=== PATIENT | female | born 1950 | race Caucasian/White ===

== ENCOUNTER → 2017-11-20 10:44 | Outpatient (CLI) | payer OTHER, SELFPAY ==
--- NOTE | 2017-11-20 10:45 | DI.RAD.S_ITS ---
PROCEDURE: XR CERVICAL SPINE 2V OR 3V INDICATIONS: Neck pain TECHNIQUE: 3 view(s) of the cervical spine were acquired. COMPARISON: None. FINDINGS: Bones: No fractures or dislocations to the T1 level. The lateral masses of C1 appear intact on the odontoid view. No suspicious bony lesions. Grade 1 retrolisthesis C5-C6 where there is moderate to severe disc degeneration. Mild mid cervical spine facet joint arthropathy. Mild multilevel vertebral hypertrophy. Soft tissues: No prevertebral soft tissue swelling. IMPRESSION: 1. Grade 1 retrolisthesis C5-C6 where there is moderate to severe disc degeneration. 2. Mild multilevel uncovertebral hypertrophy and mid cervical spine facet joint arthropathy Dictated by: Ted Riggins A Interpreted: Cait Almeida MD on 11/20/2017 at 11:04 Approved by: Cait Almeida MD, PhD on 11/20/2017 at 14:36
== END ==
PROVIDERS: PCP Family Medicine; Visit Provider Registered Nurse
DX: M50.322 Other cervical disc degeneration at C5-C6 level (principal); M47.812 Spondylosis without myelopathy or radiculopathy, cervical region; M43.12 Spondylolisthesis, cervical region
CPT/HCPCS: 72040

== ENCOUNTER → 2019-01-18 12:10 | Outpatient (CLI) | payer OTHER, SELFPAY | PROVIDERS: PCP Family Medicine; Visit Provider Nurse Practitioner | DX: L90.0 Lichen sclerosus et atrophicus (principal); N94.819 Vulvodynia, unspecified; N95.2 Postmenopausal atrophic vaginitis | CPT/HCPCS: 87070; 87077; 87205 ==

== ENCOUNTER → 2019-03-16 10:19 | Outpatient (CLI) | payer MEDICARE, SELFPAY | PROVIDERS: PCP Family Medicine; Visit Provider Obstetrics & Gynecology | DX: L90.0 Lichen sclerosus et atrophicus (principal); N95.2 Postmenopausal atrophic vaginitis | CPT/HCPCS: 87070; 87205 ==

== ENCOUNTER → 2019-09-07 14:22 | Outpatient (CLI) | payer MEDICARE, SELFPAY ==
[2019-09-08 08:19] LABS: COVID19 Sendout Not Detected (Not Detect)
== END ==
PROVIDERS: PCP Family Medicine; Visit Provider Physician Assistant
DX: Z01.812 Encounter for preprocedural laboratory examination (principal)
CPT/HCPCS: 87635

== ENCOUNTER 2019-09-10 08:00 | Day surgery (SDC) | payer MEDICARE, SELFPAY ==
[2019-09-10] VITALS (8 sets, daily range): BP systolic 132–165; BP diastolic 79–91; PULSE 53–80; RESP 11–20; TEMP 36.3–36.4; O2SAT 96–98; BMI 30.2
--- NOTE | 2019-09-10 | PATH_ITS ---
[facility] Accession Number: [id number] . 01 Material submitted: . rectum - RECTAL POLYP AT 15CM . 02 Diagnosis: Rectum at 15 cm, Polyp: Hyperplastic polyp. [facility] 09/13/2019 1055 Local . 02 Electronically signed: . Rob Mendoza MD, PhD, Pathologist NPI- [id number] . 01 Gross description: . RECTAL POLYP AT 15CM: Received in formalin are 2 fragment(s) of garrett, soft tissue measuring 0.2 x 0.2 x 0.2 cm to 0.1 x 0.1 x 0.1 cm submitted entirely in 1 cassette(s) /QBJ 09/11/2019 0436 Local . 02 Pathologist provided ICD-10: K62.1 . 02 CPT . 189503 Performed at: 01 [facility] [address] [id number] MD Bigg Carbajal MD Phone: [phone] Performed at: 02 [facility] [address] [place], [place] [id number] MD Berta Barr MD Phone: [phone]
[2019-09-10] MEDS: SODIUM CHLORIDE 0.9% 1,000 ML 200 ML IV (08:44)
--- NOTE | 2019-09-10 09:23 | PM.PREOP ---
Pre-operative Note COVID-19 COVID-19 status: Negative Result date/Date tested (Pos, Neg/Pending): 09/07/19 Interval Note History & Physical reviewed/Exam performed by Physician: Yes Changes to H&P: No ASA Class (for procedural sedation): III
[2019-09-10] MEDS: LIDOCAINE JELLY 2% 5 ML 1 APPLIC TOP (09:48)
[2019-09-10] MEDS: fentaNYL 250 MCG/5 ML INJ IV (09:49)
[2019-09-10] MEDS: MIDAZOLAM 5 MG/5 ML VIAL IV (09:50)
--- NOTE | 2019-09-10 10:05 | PM.OP.ENDO ---
Operative Date/Time/Diagnoses Date of procedure: 09/10/19 Time of procedure: 10:05 Pre-op diagnosis: Personal history of colon polyps Post-op diagnosis: other (small rectal polyp at 15cm) Procedure & Clinicians Study performed: Colonoscopy, cold forceps removal of small polyp at 15cm Procedural sedation simultaneously performed by the endoscopist Same procedure as scheduled: Yes Indications: Personal history of colon polyps Surgeon: Heidy Moya Procedure Notes SCOAP/Timeout: Performed Procedure in detail: The patient was brought to the room and placed in left lateral decubitus position with all bony prominences padded. A time-out was performed and then the patient was given procedural sedation starting with 2 mg of Versed and [100] mcg of fentanyl. A total of 4 mg of Versed and 200 micro g of fentanyl were given for the entire procedure. Vitals were monitored throughout the procedure and remained stable. Once adequately sedated, the procedure was begun. A rectal exam was performed revealing [no abnormalities]. The colonoscope was then introduced to the rectum and advanced to the cecum in the usual fashion. []The cecum was identified by the appendiceal orifice, the mucosal tri-fold, and the ileocecal valve. The scope was then retracted while rotating side to side and examining each mucosal fold. Small polyp was found 15 cm from the anal verge, and removed with cold forceps. [] At the conclusion of the procedure retroflexion was performed and [small grade 1-2 internal hemorrhoids without stigmata of bleeding were seen]. The scope was then withdrawn from the rectum the procedure was concluded. The patient tolerated the procedure well and was transferred to the PACU in stable condition. Scope withdrawal time: 8 Sedation minutes: 18 Findings: polyp Specimen(s): other (Small polyp from the rectum) Complications: none Impression: Single small polyp Post-procedure Recommendations: Colonscopy in 5 years (Due to history of colon polyps and family history of colon cancer, and 1 polyp found today) Follow up: as needed Disposition: PACU
--- NOTE | 2019-09-10 10:23 | SUR.PHASEI ---
HR variation from 57, to 82, to 113. She reports one episode of afib years ago. Spontaneously dropped into the 50s and 60s. Assymptomatic. Sitting up, drinking water, denies dizziness, light headedness, pain.
--- NOTE | 2019-09-10 10:34 | SUR.PHASEI ---
Addendum entered by Christy Blank R.N. 09/10/19 10:40: Patient goes out of tachycardia before she has the opportunity to do a valsalva maneuver. Original Note: Spoke with Dr. Moya about variable heartrate from 47-122 with adequate BP and no symptoms. She stated that pt has medication that she uses at home (metoprolol) that she can take as directed by her doctor and okd metoprolol as long as she is asymptomatic. HR varies frequently (is regular at each pace); Pt is otherwise doing well.
== END 2019-09-10 11:04 | disposition home or self-care (01) ==
PROVIDERS: PCP Family Medicine; Referring Provider Surgery; Visit Provider Surgery
PROC: 0DJD8ZZ Inspection of Lower Intestinal Tract, Via Natural or Artificial Opening Endoscopic (ICD-10-PCS; CPT 45378; principal; 2019-09-10 09:15)
DX: Z12.11 Encounter for screening for malignant neoplasm of colon (principal); Z86.010 Personal history of colon polyps; Z80.0 Family history of malignant neoplasm of digestive organs; I48.91 Unspecified atrial fibrillation; I10 Essential (primary) hypertension; Z79.01 Long term (current) use of anticoagulants; K64.0 First degree hemorrhoids; K62.1 Rectal polyp
CPT/HCPCS: 45380; 99152; J2250; J3010

== ENCOUNTER → 2020-03-16 10:30 | Outpatient (CLI) | payer MEDICARE, SELFPAY ==
[2020-03-16 11:25] LABS: Add Manual Diff / Slide Review NO; Basophils Absolute Auto 0 /uL (0-100); Basophils Percent Auto 0.5 % (0-2); Eosinophils Absolute Auto 100 /uL (0-450); Eosinophils Percent Auto 1.7 % (2-4); Hematocrit 40.2 % (36-46); Hemoglobin 13.2 g/dL (12.0-16.0); Lymphocytes Absolute Auto 1800 /uL (1100-4500); Lymphocytes Percent Auto 28.4 % (25-40); Mean Corpuscular HGB Conc 32.9 % (30-36); Mean Corpuscular Hemoglobin 29.4 PG (26-34); Mean Corpuscular Volume 89.3 fL (80-100); Monocytes Absolute Auto 500 /uL (0-900); Neutrophils Absolute Auto 3800 /uL (1500-7000); Neutrophils Percent Auto 61.4 % (50-75); Platelet Count 244 X10^3/uL (150-400); Red Cell Distribution Width 14.1 % (11.6-14.8); White Blood Cell Count 6.3 X10^3/uL (4.5-11.0)
[2020-03-16 11:36] LABS: Alanine Aminotransferase 65 IU/L (<35); Albumin 4.2 g/dL (3.5-5.0); Albumin Globulin Ratio 1.2 (1.0-2.8); Alkaline Phosphatase 149 U/L (38-126); Aspartate Aminotransferase 52 IU/L (14-36); BUN Creatinine Ratio 19.2 (6-22); Bilirubin Total 0.6 mg/dL (0.2-1.3); Blood Urea Nitrogen 14 mg/dL (7-17); Calcium 8.9 mg/dL (8.4-10.2); Carbon Dioxide 27 mmol/L (22-32); Chloride 107 mmol/L (98-107); Cholesterol 206 mg/dL (140-199); Estimated Glomerular Filt Rate > 60.0 mL/min (>60); Globulin 3.5 g/dL (1.7-4.1); Glucose 96 mg/dL (80-110); HDL Cholesterol 69 mg/dL (40-60); HEMOLYSIS < 15 (0-50); LDL Cholesterol Calculated 127 mg/dL (<100); Potassium 4.1 mmol/L (3.4-5.1); Sodium 137 mmol/L (137-145); Total Protein 7.7 g/dL (6.3-8.2); Triglycerides 50 mg/dL (35-150)
== END ==
PROVIDERS: PCP Family Medicine; Referring Provider Family Medicine; Visit Provider Family Medicine
DX: I10 Essential (primary) hypertension (principal); I48.0 Paroxysmal atrial fibrillation; Z13.220 Encounter for screening for lipoid disorders
CPT/HCPCS: 36415; 80053; 80061; 85025

== ENCOUNTER → 2020-04-18 08:36 | Outpatient (CLI) | payer MEDICARE, SELFPAY ==
[2020-04-18 09:17] LABS: Alanine Aminotransferase 60 IU/L (<35); Albumin Globulin Ratio 1.1 (1.0-2.8); Alkaline Phosphatase 135 U/L (38-126); Aspartate Aminotransferase 49 IU/L (14-36); BUN Creatinine Ratio 16.9 (6-22); Bilirubin Total 0.9 mg/dL (0.2-1.3); Blood Urea Nitrogen 13 mg/dL (7-17); Carbon Dioxide 29 mmol/L (22-32); Chloride 105 mmol/L (98-107); Estimated Glomerular Filt Rate > 60.0 mL/min (>60); Globulin 3.7 g/dL (1.7-4.1); Glucose 97 mg/dL (80-110); HEMOLYSIS < 15 (0-50); Potassium 3.6 mmol/L (3.4-5.1); Sodium 135 mmol/L (137-145); Total Protein 7.7 g/dL (6.3-8.2)
== END ==
PROVIDERS: PCP Family Medicine; Referring Provider Family Medicine; Visit Provider Family Medicine
DX: R74.8 Abnormal levels of other serum enzymes (principal)
CPT/HCPCS: 36415; 80053

== ENCOUNTER → 2020-07-17 08:00 | Outpatient (CLI) | payer MEDICARE, SELFPAY ==
[2020-07-17 09:46] LABS: Alanine Aminotransferase 47 IU/L (<35); Albumin 3.9 g/dL (3.5-5.0); Albumin Globulin Ratio 1.2 (1.0-2.8); Alkaline Phosphatase 132 U/L (38-126); Aspartate Aminotransferase 47 IU/L (14-36); Bilirubin Total 0.5 mg/dL (0.2-1.3); Bilirubin Unconjugated 0.5 mg/dL (0.0-1.1); Cholesterol 176 mg/dL (140-199); Globulin 3.3 g/dL (1.7-4.1); HDL Cholesterol 65 mg/dL (40-60); HEMOLYSIS < 15 (0-50); LDL Cholesterol Calculated 104 mg/dL (<100); Total Protein 7.2 g/dL (6.3-8.2); Triglycerides 35 mg/dL (35-150)
== END ==
PROVIDERS: PCP Family Medicine; Referring Provider Family Medicine; Visit Provider Family Medicine
DX: E78.5 Hyperlipidemia, unspecified (principal); R74.8 Abnormal levels of other serum enzymes
CPT/HCPCS: 36415; 80061; 80076

== ENCOUNTER → 2020-08-08 14:36 | Outpatient (CLI) | payer MEDICARE, SELFPAY ==
--- NOTE | 2020-08-08 14:37 | DI.US.S_ITS ---
PROCEDURE: US ABDOMEN LIMITED INDICATIONS: ELEVATED LIVER ENZYMES TECHNIQUE: Real-time focused scanning was performed of the abdomen, with image documentation. COMPARISON: None. FINDINGS: Liver echotexture is normal, no intrahepatic biliary distention or mass is found. The gallbladder appears normal, free of stones or sludge and the gallbladder wall is only 1.1 mm in thickness. The common bile duct is normal in caliber at 5.2 mm. The pancreas visualized appears normal. IMPRESSION: Source of abnormal liver function tests is not identified. The current limited ultrasound shows no hepatic biliary disease and normal appearing pancreas. Dictated by: Kishor Khan M.D. on 08/08/2020 at 16:38 Approved by: Kishor Khan M.D. on 08/08/2020 at 16:40
== END ==
PROVIDERS: PCP Family Medicine; Referring Provider Family Medicine; Visit Provider Family Medicine
DX: R74.8 Abnormal levels of other serum enzymes (principal)
CPT/HCPCS: 76705

== ENCOUNTER 2020-09-25 14:26 | Emergency (ER) | payer MEDICARE, SELFPAY | END 2020-09-25 14:53 | disposition left against medical advice (07) | PROVIDERS: Emergency Provider Emergency Medicine; PCP Family Medicine ==

== ENCOUNTER → 2020-10-12 09:41 | Outpatient (CLI) | payer MEDICARE, SELFPAY ==
--- NOTE | 2020-11-02 08:56 | PM.CARDMON.1 ---
Travel Agency Manager Report Referral & Results Date Patient Seen: 10/12/20 Requesting provider: Niharika Nelson Indication: Atrial fibrillation Duration of monitoring (days): 7 Diary information: There were 3 patient triggered events. These 3 events were associated with atrial fibrillation and heart rates between 65 and 117 beats per minute Data: Minimum heart rate identified was 59 beats per minute at 02:34 on 10/14/2020 Maximum heart rate was 179 beats per minute at 20:03 on 10/13/2020 Less than 1% of identified beats were ventricular ectopic in origin which would classify them as rare Patient was continuously in atrial fibrillation for 100% of the monitoring period. Overall heart rate control with patient's chronic atrial fibrillation appears to be adequate with patient only rarely exceeding 100 beats per minute Impression: Atrial fibrillation, with what appears to be adequate rate control. Clinical correlation suggested
== END ==
PROVIDERS: PCP Family Medicine; Referring Provider Family Medicine; Visit Provider Family Medicine
DX: I48.0 Paroxysmal atrial fibrillation (principal); I10 Essential (primary) hypertension
CPT/HCPCS: 93242; 93244

== ENCOUNTER → 2020-11-15 13:08 | Outpatient (CLI) | payer MEDICARE, SELFPAY ==
[2020-11-15 13:54] LABS: Prothrombin Time 54.2 SECONDS (10.1-12.7)
[2020-11-15 13:56] LABS: INR 4.7 (0.9-1.3)
== END ==
PROVIDERS: PCP Family Medicine; Referring Provider Family Medicine; Visit Provider Family Medicine
DX: Z51.81 Encounter for therapeutic drug level monitoring (principal); Z79.01 Long term (current) use of anticoagulants
CPT/HCPCS: 36415; 85610

== ENCOUNTER → 2021-01-26 09:40 | Outpatient (CLI) | payer MEDICARE, SELFPAY ==
[2021-01-26 10:36] LABS: COVID19 -Nasal RAPID Negative (Negative)
== END ==
PROVIDERS: PCP Family Medicine; Visit Provider Nurse Practitioner Family
DX: Z20.822 Contact with and (suspected) exposure to COVID-19 (principal)
CPT/HCPCS: 87635

== ENCOUNTER → 2021-01-30 11:15 | Outpatient (CLI) | payer MEDICARE, SELFPAY | PROVIDERS: PCP Family Medicine; Visit Provider Nurse Practitioner Family | DX: Z20.822 Contact with and (suspected) exposure to COVID-19 (principal); J06.9 Acute upper respiratory infection, unspecified | CPT/HCPCS: 87502; 87635 ==

== ENCOUNTER 2021-11-15 07:46 | Emergency (ER) | payer MEDICARE, SELFPAY ==
[2021-11-15 07:50] VITALS: BP 171/123; PULSE 88; RESP 18; TEMP 37; O2SAT 98; BMI 28.3
--- NOTE | 2021-11-15 08:18 | DI.CT.S_ITS ---
PROCEDURE: CT CHEST WO CON INDICATIONS: Fall/right rib pain TECHNIQUE: Noncontrast 5 mm thick sections acquired from the pulmonary apices to the posterior costophrenic angles. 1 mm lung window, 5 mm thick coronal and sagittal and 7 mm axial MIP reformats were then acquired. For radiation dose reduction, the following was used: automated exposure control, adjustment of mA and/or kV according to patient size. COMPARISON: None. FINDINGS: Image quality: Excellent. Lungs and pleura: No acute air space opacities. No pleural effusions or pneumothorax. Central and peripheral airways are patent and normal in caliber. Mediastinum: Heart size is normal. The right thyroid lobe has a 2.1 x 1.6 centimeter hypodense nodule. No pericardial effusion. No mediastinal adenopathy by size criteria. The aorta has atherosclerosis with no aneurysmal dilatation. Esophagus is normal in caliber. No hiatal hernia. Bones and chest wall: No suspicious bony lesions. No vertebral body compression fractures. No axillary or supraclavicular adenopathy by size criteria. Abdomen: Limited visualization of the upper abdomen shows no acute abnormality. IMPRESSION: 1. No acute abnormality of the chest. 2. Right thyroid nodule. Recommend nonemergent thyroid ultrasound. Dictated by: Javi Momin M.D. on 11/15/2021 at 8:38 Approved by: Javi Momin M.D. on 11/15/2021 at 8:48
--- NOTE | 2021-11-15 08:18 | ED_ITS ---
HPI - Fall General Chief Complaint: Fall Stated Complaint: Fall Fri- on thinners- tastes blood/pink spit Time Seen by Provider: 11/15/21 08:11 Source: patient Mode of arrival: Ambulatory History of Present Illness HPI Narrative: Patient complains of right axillary right rib area rib pain/chest wall pain. Hurts with deep breath and movement. Patient tripped on a tree root this past Friday while walking on a trail. No loss of consciousness. She states she fell to the right side and had her arm tucked towards her chest wall, tried posting out her right hand. Has small bruising to the dorsal right wrist. Also complains of right shoulder pain with history of shoulder injury in the past. She states she has full active range of motion without any difficulty. On exam this is consistent. No gross deformities. She does not want any imaging of the right hand or wrist or shoulder. She does agree with chest CT. She is on blood thinner for chronic AFib. She is had a cough since the fall. Pinkish sputum was noted, however no dyspnea. No fever chills. Blood pressure noted. She just took her blood pressure medication prior to arrival. Related Data Home Medications Medication Instructions Recorded Confirmed sotalol 80 mg tablet 80 mg PO BID 10/26/20 01/30/21 apixaban 5 mg tablet (Eliquis) 5 mg PO BID 01/10/21 01/30/21 Previous Rx's Medication Instructions Recorded clobetasol 0.05 % topical ointment 1 applictn topical BID #60 grams 01/15/19 acyclovir 400 mg tablet 400 mg PO 5XD PRN outbreak #30 tabs 02/15/19 flecainide 50 mg tablet 50 mg PO Q DAY PRN PRN atrial 04/08/19 fibrillation #30 tabs warfarin 5 mg tablet See Rx Instructions PO QDAY #125 04/18/20 tabs amoxicillin 875 mg-potassium 1 tab PO BID #10 tabs 01/30/21 clavulanate 125 mg tablet losartan 100 mg tablet 100 mg PO QDAY #90 tabs 04/06/21 Allergies Allergy/AdvReac Type Severity Reaction Status Date / Time No Known Drug Allergies Allergy Verified 01/30/21 11:12 Review of Systems Review of Systems Narrative: GENERAL: Denies chills, fatigue, malaise, fever, sweats. HEENT: Denies sinus pain, ear pain, sore throat RESPIRATORY: Denies dyspnea, cough CARDIOVASCULAR: Denies chest pain, palpitations GASTROINTESTINAL: Denies nausea, vomiting, abdominal pain : Denies dysuria, frequency, hematuria MUSCULOSKELETAL: Positive for muscle or bony pain SKIN: Denies rash, skin lesions NEUROLOGIC: Denies weakness, numbness ROS Unobtainable: All systems reviewed & are unremarkable except as noted in HPI and below Patient History Medical History (Updated 11/15/21 @ 09:23 by Jonhny Bermudez MD) Atrial fibrillation (~2013) Chicken pox Chronic back pain (~2001) Fractures (~1999) Herpes (~2013) Hypertension (~2003) Lichen sclerosus Rosacea (~2012) Tinnitus Surgical History Anesthesia History of cardioversion (~08/2015) Surgical procedure planned Family History Father Hypertension Colon cancer Mother Age: 93 A-fib Heart disease Stroke Breast cancer Social History marital status: unknown household members: none occupational status: employed Smoking Status: Former smoker alcohol intake: current substance use type: does not use Smoking Status: Former smoker alcohol intake frequency: 0-2 drinks per day Substance Use Type: does not use Exam Narrative Exam Narrative: GENERAL: in no distress, not toxic not dyspneic HEAD: Normocephalic. EYES: Pupils equal round No scleral icterus. ENT: Mucous membranes moist. No blood in posterior pharynx NECK: Trachea midline. CARDIOVASCULAR: Regular rate and rhythm without murmurs RESPIRATORY: Clear to auscultation. Breath sounds equal bilaterally. No wheezes, rales, or rhonchi. Speaking full sentences. GASTROINTESTINAL: Abdomen soft, non-tender EXTREMITIES: No gross deformities. Examination right upper extremity there is bruising to the dorsum of the wrist/hand. 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 Full active range of motion of the shoulder elbow wrist with strong full supination pronation of the forearm, flexion-extension of the elbow, able to bring right hand above her head and bring across her chest. No drop off or gross deformity of the right shoulder. Examination of the chest wall, there is tenderness to the axillary ribs superiorly. No abrasion or bruising seen. No flail or crepitus. BACK: No flank tenderness. NEURO: AOx4. SKIN: Warm and dry PSYCH: Not anxious, is cooperative Initial Vital Signs Initial Vital Signs: Vital Signs Temperature 98.6 F 11/15/21 07:50 Pulse Rate 88 11/15/21 07:50 Respiratory Rate 18 11/15/21 07:50 Blood Pressure 171/123 H 11/15/21 07:50 Pulse Oximetry 98 11/15/21 07:50 Oxygen Delivery Method 11/15/21 07:50 Course Orders Ordered: ED Orders 11/15/21 08:18 CT chest wo con Stat Vital Signs Vital signs: Vital Signs - 8 hr 11/15/21 09:17 11/15/21 09:25 11/15/21 09:25 Pulse Rate 83 87 Respiratory Rate 22 Blood Pressure 149/81 H Pulse Oximetry 96 11/15/21 09:30 Pulse Rate 88 Respiratory Rate 22 Blood Pressure Pulse Oximetry 97 MDM - Fall Imaging Data CT scan - chest: Radiologist's Impression: [place] [address] CT Scan Report Signed Patient: Cora Yin MR#: [id number] : 1950 Acct:[id number] Age/Sex: 71 / F Date of Service: 11/15/21 Loc: Accession Number: [id number] ?? Procedure: CT chest wo con Ordering Provider: Johnny Bermudez MD PROCEDURE:? CT CHEST WO CON ? INDICATIONS:? Fall/right rib pain ? TECHNIQUE: Noncontrast 5 mm thick sections acquired from the pulmonary apices to the posterior costophrenic angles.? 1 mm lung window, 5 mm thick coronal and sagittal and 7 mm axial MIP reformats were then acquired.? For radiation dose reduction, the following was used:? automated exposure control, adjustment of mA and/or kV according to patient size.? ? COMPARISON:? None. ? FINDINGS: Image quality:? Excellent.? ? Lungs and pleura: No acute air space opacities. No pleural effusions or pneumothorax.? Central and peripheral airways are patent and normal in caliber.? ? Mediastinum:? Heart size is normal.? The right thyroid lobe has a 2.1 x 1.6 centimeter hypodense nodule.? No pericardial effusion.? No mediastinal adenopathy by size criteria.? The aorta has atherosclerosis with no aneurysmal dilatation.? Esophagus is normal in caliber.? No hiatal hernia. ? Bones and chest wall:? No suspicious bony lesions. No vertebral body compression fractures.? No axillary or supraclavicular adenopathy by size criteria.? ? Abdomen:? Limited visualization of the upper abdomen shows no acute abnormality.? ? IMPRESSION:? 1. No acute abnormality of the chest. 2. Right thyroid nodule.? Recommend nonemergent thyroid ultrasound.? ? ? Dictated by: Javi Momin M.D. on 11/15/2021 at 8:38 ? ? Approved by: Javi Momin M.D. on 11/15/2021 at 8:48 ? ECG Data Interpretation: Atrial fibrillation rate 85, no ST elevation or depression MDM Narrative Medical decision making narrative: Appropriate for discharge home. Exam and CT scan reassuring. Blood work indicated this time. Onset of injury 4 days ago. Taste of blood in her mouth nonspecific. Patient is on a blood thinner however at this time vital signs no hypotension or tachycardia. On imaging no hematoma or fluid collection that would indicate for blood draw. Return precautions reviewed with patient. Patient desires discharge home. At this time not requiring supplemental oxygen. Breathing with ease. Not requiring incentive spirometer. Discharge Plan Departure Patient Disposition: Home Clinical Impression: Contusion of rib on right side Instructions: DI for Rib Contusion, How to Prevent Falls Activity Restrictions/Additional Instructions: See family doctor in a week for recheck of your pain. May use Tylenol for pain. May continue home medications. Return if worse if any questions or concerns. It will take a few weeks for this pain to improve. Return if any trouble breathing or any coughing up blood or any questions or concerns. Prescriptions: No Action amoxicillin-pot clavulanate 875-125 mg tablet 1 tab PO BID Qty: 10 0RF Rx Instructions: take with food. Probiotics would be helpful clobetasol 0.05 % ointment 1 applictn TOP BID Qty: 60 2RF acyclovir 400 mg tablet 400 mg PO 5XD PRN (Reason: outbreak) Qty: 30 6RF flecainide 50 mg tablet 50 mg PO Q DAY PRN PRN (Reason: atrial fibrillation) Qty: 30 0RF warfarin 5 mg tablet See Rx Instructions PO QDAY Qty: 125 3RF Rx Instructions: Take 1.5 tabs (7.5mg) Tues, Thurs and Sat. Take 1 tab (5mg) other 4 days or as directed sotalol 80 mg tablet 80 mg PO BID Label Comments: Prescribed by Sales Center Associate, Dr. Cho Eliquis 5 mg tablet 5 mg PO BID losartan 100 mg tablet 100 mg PO QDAY Qty: 90 3RF Referrals: Niharika Nelson DO [Primary Care Provider] - Visit Report Forms: Patient Portal/API
[2021-11-15 09:17] VITALS: PULSE 83
[2021-11-15 09:25] VITALS: BP 149/81; PULSE 87; RESP 22; O2SAT 96
[2021-11-15 09:30] VITALS: PULSE 88; RESP 22; O2SAT 97
== END 2021-11-15 09:45 | disposition home or self-care (01) ==
PROVIDERS: Emergency Provider Emergency Medicine; PCP Family Medicine
DX: S20.211A Contusion of right front wall of thorax, initial encounter (principal); R07.89 Other chest pain; W18.09XA Striking against other object with subsequent fall, initial encounter
CPT/HCPCS: 71250; 93005; 93010; 99284

== ENCOUNTER → 2021-12-14 07:26 | Outpatient (CLI) | payer MEDICARE, SELFPAY ==
--- NOTE | 2021-12-14 07:27 | DI.US.S_ITS ---
PROCEDURE: US THYROID INDICATIONS: thyroid nodule, CT f/u TECHNIQUE: Real-time scanning was performed of the thyroid gland, with image documentation. COMPARISON: None. FINDINGS: Right: Thyroid lobe measures 6.1 x 2.0 x 2.0 cm, and is homogeneous in echotexture. Left: Thyroid lobe measures 5.0 x 1.2 x 1.3 cm, and is homogenous in echotexture. Isthmus: 2 mm thick. Nodule number: 1 Location: Right inferior Size: 3.0 x 2.3 x 2.0 cm. Composition: Solid Echogenicity: Hyperechoic Shape: wider than tall. Margins: Lobulated Echogenic foci: None Total points: 5 ACR TI-RADS category: 4 Nodule number: 2 Location: Left inferior Size: 0.5 x 0.5 x 0.6 cm. Composition: Solid Echogenicity: Hyperechoic Shape: wider than tall. Margins: Irregular Echogenic foci: Peripheral Total points: 7 ACR TI-RADS category: 5 IMPRESSION: There are 2 thyroid nodules, one on each side. Nodule 1 is moderately suspicious and larger than 1.5 cm. Recommend fine needle aspiration biopsy. Nodule 2 is highly suspicious but too small to biopsy at this time. Recommend continue ultrasound follow-up. ACR TI-RADS definitions and recommendations: TI-RADS 1 (benign): 0 points. FNA not needed. TI-RADS 2 (not suspicious): 2 points. FNA not needed. TI-RADS 3 (mildly suspicious): 3 points. * FNA if 2.5 cm or larger, follow up if 1.5 cm or larger (at 1, 3, and 5 years). TI-RADS 4 (moderately suspicious): 4-6 points. * FNA if 1.5 cm or larger, follow up if 1 cm or larger (at 1, 2, 3, and 5 years). TI-RADS 5 (highly suspicious): 7 points or more. * FNA if 1 cm or larger, follow up if 0.5 cm or larger (every year for 5 years). Dictated by: Rubin Jasso M.D. on 12/14/2021 at 13:45 Approved by: Rubin Jasso M.D. on 12/14/2021 at 13:51
== END ==
PROVIDERS: PCP Family Medicine; Referring Provider Physician Assistant; Visit Provider Physician Assistant
DX: E04.2 Nontoxic multinodular goiter (principal)
CPT/HCPCS: 76536

== ENCOUNTER → 2022-01-15 08:18 | Outpatient (CLI) | payer MEDICARE, SELFPAY ==
[2022-01-15 09:00] LABS: Add Manual Diff / Slide Review NO; Basophils Absolute Auto 0 /uL (0-100); Basophils Percent Auto 0.9 % (0-2); Eosinophils Absolute Auto 100 /uL (0-450); Eosinophils Percent Auto 2.4 % (2-4); Hematocrit 36.6 % (36-46); Hemoglobin 12.5 g/dL (12.0-16.0); Lymphocytes Absolute Auto 1200 /uL (1100-4500); Lymphocytes Percent Auto 30.7 % (25-40); Mean Corpuscular HGB Conc 34.1 % (30-36); Mean Corpuscular Hemoglobin 30.2 PG (26-34); Mean Corpuscular Volume 88.5 fL (80-100); Monocytes Absolute Auto 400 /uL (0-900); Neutrophils Absolute Auto 2200 /uL (1500-7000); Platelet Count 223 X10^3/uL (150-400); Red Blood Cell Count 4.14 X10^6/uL (4.0-5.2); Red Cell Distribution Width 13.5 % (11.6-14.8); White Blood Cell Count 3.9 X10^3/uL (4.5-11.0)
[2022-01-15 09:42] LABS: Alanine Aminotransferase 56 IU/L (<35); Albumin 3.8 g/dL (3.5-5.0); Albumin Globulin Ratio 1.2 (1.0-2.8); Alkaline Phosphatase 137 U/L (38-126); Aspartate Aminotransferase 42 IU/L (14-36); BUN Creatinine Ratio 20.5 (6-22); Bilirubin Total 0.7 mg/dL (0.2-1.3); Blood Urea Nitrogen 16 mg/dL (7-17); Calcium 8.7 mg/dL (8.4-10.2); Carbon Dioxide 27 mmol/L (22-32); Chloride 103 mmol/L (98-107); Cholesterol 175 mg/dL (140-199); Estimated Glomerular Filt Rate > 60 mL/min (>60); Globulin 3.2 g/dL (1.7-4.1); Glucose 95 mg/dL (80-110); HDL Cholesterol 70 mg/dL (40-60); HEMOLYSIS < 15 (0-50); LDL Cholesterol Calculated 98 mg/dL (<100); Sodium 135 mmol/L (137-145); Triglycerides 33 mg/dL (35-150)
[2022-01-15 10:06] LABS: Creatinine Urine Random 39.3 mg/dL
[2022-01-15 10:08] LABS: Microalbumin Urine Random < 0.6 mg/dL (0-1.6)
[2022-01-15 10:18] LABS: TSH w/ Reflex to FT4 2.15 uIU/mL (0.47-4.68)
== END ==
PROVIDERS: PCP Family Medicine; Referring Provider Physician Assistant; Visit Provider Physician Assistant
DX: E04.1 Nontoxic single thyroid nodule (principal); I10 Essential (primary) hypertension; Z13.220 Encounter for screening for lipoid disorders; Z13.6 Encounter for screening for cardiovascular disorders; I48.0 Paroxysmal atrial fibrillation
CPT/HCPCS: 36415; 80053; 80061; 82043; 82570; 84443; 85025

== ENCOUNTER → 2022-02-22 14:30 | Outpatient (CLI) | payer MEDICARE, SELFPAY ==
[2022-02-25 15:44] LABS: Hepatitis B Surface Antigen NEGATIVE s/c (NEGATIVE)
[2022-02-25 16:01] LABS: Hep C Virus Ab w/Reflex Quant NEGATIVE s/c (NEGATIVE)
== END ==
PROVIDERS: PCP Family Medicine; Referring Provider Family Medicine; Visit Provider Family Medicine
DX: R74.01 Elevation of levels of liver transaminase levels (principal)
CPT/HCPCS: 36415; 86803; 87340

== ENCOUNTER → 2022-03-19 13:42 | Outpatient (CLI) | payer MEDICARE, SELFPAY ==
--- NOTE | 2022-03-19 | PATH_ITS ---
Note [facility] Accession Number: [id number] TESTS RESULT FLAG UNITS REF RANGE LAB Clinician Provided Cytology Information No. of containers..01 Other (Miscellaneous) No. of containers..02 Previously Prepared Cytology Slide Source: RIGHT INFERIOR THYROID NODULE DIAGNOSIS: RIGHT INFERIOR THYROID NODULE INCONCLUSIVE. [place] CATEGORY III. ATYPIA OF UNDETERMINED SIGNIFICANCE. MOLECULAR STUDIES REQUESTED; RESULTS WILL BE REPORTED SEPARATELY. Pathologist ICD10: R89.6 Signed out by: Cora Silverio MD, Pathologist NPI- [id number] Performed by: Kumar Diaz, Package Sorter ([facility]) Gross description: 30 CC, RED, CLEAR RECIEVED: IN CYTOLYT WITH 6 ALCOHOL FIXED AND 6 QUICK STAINED SLIDES ALSO 1 RNA VIAL WAS RECEIVED. /VDU 03/20/2022 0729 Local FLAG LEGEND: L-Low Normal,H-High Normal,LL-Alert Low,HH-Alert High <-Panic Low,>-Panic High,A-Abnormal,AA-Critical Abnormal Performed at: 01 =Z [facility] [address], [place] [address] Bigg Carbajal MD, Performed at: 01 [facility] [address], [place], [place] [id number] MD Bigg Carbajal MD Phone: [phone]
--- NOTE | 2022-03-19 13:44 | DI.US.S_ITS ---
PROCEDURE: US FINE NEEDLE ASPIRATION INDICATIONS: RIGHT LOBE NODULE TECHNIQUE: The indications, alternatives, benefits, risks, and complications of the procedure were explained to the patient. Written informed consent was obtained and placed in the chart. The thyroid region was examined sonographically and a site was chosen for ultrasound guided percutaneous sampling. The skin was prepared and draped in the usual fashion, and anesthetized with 1% lidocaine infiltrated from the skin down to the thyroid gland. Multiple passes were then performed, with contents emptied into an appropriate pathology specimen container. A bandage was applied to the area of access at completion of the study. COMPARISON: [facility], US, US THYROID, 12/14/2021, 7:40. FINDINGS: Location(s) of lesion(s) sampled: Right inferior [place]: 25 gauge hypodermic needles. Number of passes: 6 Medications: 1% lidocaine for local anaesthesia. Complications: None. IMPRESSION: Successful ultrasound-guided thyroid nodule fine needle aspiration, with cytology results pending. Please see chart below for management recommendations based on cytology results. [facility] ReportingRecommendationsNon-diagnostic* Repeat US-guided FNA, with on-site cytology evaluation if possible. * Repeated non-diagnostic nodules without high suspicion US features: close observation vs surgical consult. * Consider surgery if nodule has high suspicion US features, grows >20% in 2 dimensions on followup, or patient has clinical risk factors for malignancy. Benign* If nodule has high suspicion US features: repeat US and FNA within 12 months. * If nodule has low to intermediate suspicion US features: repeat US at 12-24 months. If nodule grows (20% increase in at least 2 dimensions, with minimal increase of 2 mm or >50% change in volume), or development of new suspicious US features, then repeat FNA or continue followup. * If nodule has very low suspicion US features: followup US at >24 months. Atypia of undetermined significance, follicular lesion of undetermined significanceRepeat FNA, molecular testing, followup US, or surgical consult.Follicular neoplasm, suspicious for follicular neoplasmSurgical consult; also consider molecular testing. Suspicious for malignancySurgical consult.MalignantSurgical consult. Dictated by: Agustin Aguilera M.D. on 03/19/2022 at 17:37 Approved by: Agustin Aguilera M.D. on 03/19/2022 at 17:37
== END ==
PROVIDERS: PCP Family Medicine; Referring Provider Physician Assistant; Visit Provider Physician Assistant
DX: E04.1 Nontoxic single thyroid nodule (principal)
CPT/HCPCS: 10005

== ENCOUNTER → 2022-04-24 07:07 | Outpatient (CLI) | payer MEDICARE, SELFPAY ==
[2022-04-24 09:53] LABS: Alanine Aminotransferase 50 IU/L (<35); Albumin 3.8 g/dL (3.5-5.0); Albumin Globulin Ratio 1.2 (1.0-2.8); Alkaline Phosphatase 123 U/L (38-126); Aspartate Aminotransferase 40 IU/L (14-36); BUN Creatinine Ratio 24.7 (6-22); Bilirubin Total 0.6 mg/dL (0.2-1.3); Blood Urea Nitrogen 18 mg/dL (7-17); Calcium 8.7 mg/dL (8.4-10.2); Carbon Dioxide 22 mmol/L (22-32); Chloride 105 mmol/L (98-107); Estimated Glomerular Filt Rate > 60 mL/min (>60); Globulin 3.2 g/dL (1.7-4.1); Glucose 96 mg/dL (80-110); HEMOLYSIS < 15 (0-50); Potassium 4.1 mmol/L (3.4-5.1); Sodium 135 mmol/L (137-145)
== END ==
PROVIDERS: PCP Family Medicine; Referring Provider Family Medicine; Visit Provider Family Medicine
DX: R74.01 Elevation of levels of liver transaminase levels (principal)
CPT/HCPCS: 36415; 80053

== ENCOUNTER → 2022-10-30 09:17 | Outpatient (CLI) | payer MEDICARE, MEDICAID, SELFPAY ==
[2022-10-30 11:06] LABS: COVID-19 CEPHEID 4-PLEX PCR Negative (Negative); Influenza A - CEPHEID Flu A NEGATIVE (NEGATIVE); Influenza B - CEPHEID Flu B NEGATIVE (NEGATIVE); Respiratory Syncytial Virus Negative (Negative)
== END ==
PROVIDERS: PCP Family Medicine; Visit Provider Nurse Practitioner Family
DX: R05.9 Cough, unspecified (principal); Z20.822 Contact with and (suspected) exposure to COVID-19
CPT/HCPCS: 0241U

== ENCOUNTER → 2022-12-23 10:31 | Outpatient (CLI) | payer MEDICARE, MEDICAID, SELFPAY ==
[2022-12-23 11:04] LABS: Add Manual Diff / Slide Review NO; Basophils Absolute Auto 0 /uL (0-100); Basophils Percent Auto 0.8 % (0-2); Eosinophils Absolute Auto 100 /uL (0-450); Eosinophils Percent Auto 2.7 % (2-4); Hematocrit 36.9 % (36-46); Hemoglobin 12.4 g/dL (12.0-16.0); Lymphocytes Absolute Auto 1300 /uL (1100-4500); Mean Corpuscular HGB Conc 33.6 % (30-36); Mean Corpuscular Hemoglobin 30.2 PG (26-34); Mean Corpuscular Volume 89.9 fL (80-100); Monocytes Absolute Auto 400 /uL (0-900); Monocytes Percent Auto 7.5 % (3-14); Neutrophils Absolute Auto 3000 /uL (1500-7000); Platelet Count 222 X10^3/uL (150-400); Red Cell Distribution Width 13.8 % (11.6-14.8); White Blood Cell Count 4.8 X10^3/uL (4.5-11.0)
[2022-12-23 11:22] LABS: Alanine Aminotransferase 67 IU/L (<35); Albumin Globulin Ratio 1.2 (1.0-2.8); Alkaline Phosphatase 134 U/L (38-126); Aspartate Aminotransferase 52 IU/L (14-36); BUN Creatinine Ratio 22.7 (6-22); Bilirubin Total 1.1 mg/dL (0.2-1.3); Blood Urea Nitrogen 15 mg/dL (7-17); Calcium 9.1 mg/dL (8.4-10.2); Carbon Dioxide 25 mmol/L (22-32); Chloride 103 mmol/L (98-107); Cholesterol 177 mg/dL (140-199); Estimated Glomerular Filt Rate > 60 mL/min (>60); Globulin 3.4 g/dL (1.7-4.1); Glucose 95 mg/dL (80-110); HDL Cholesterol 73 mg/dL (40-60); HEMOLYSIS < 15 (0-50); LDL Cholesterol Calculated 95 mg/dL (<100); Potassium 4.2 mmol/L (3.4-5.1); Sodium 134 mmol/L (137-145); Total Protein 7.4 g/dL (6.3-8.2); Triglycerides 46 mg/dL (35-150)
[2022-12-23 11:52] LABS: TSH w/ Reflex to FT4 1.16 uIU/mL (0.47-4.68)
== END ==
PROVIDERS: PCP Family Medicine; Referring Provider Family Medicine; Visit Provider Family Medicine
DX: I48.20 Chronic atrial fibrillation, unspecified (principal); I10 Essential (primary) hypertension; E04.1 Nontoxic single thyroid nodule
CPT/HCPCS: 36415; 80053; 80061; 84443; 85025

== ENCOUNTER → 2023-01-03 07:43 | Outpatient (CLI) | payer MEDICARE, MEDICAID, SELFPAY ==
--- NOTE | 2023-01-03 07:44 | DI.MG.S_ITS ---
BILATERAL DIGITAL SCREENING MAMMOGRAM 3D/2D WITH CAD: 01/03/2023 CLINICAL: Routine screening. Family history of breast cancer. Comparison is made to exams dated: 12/14/2020 mammogram, 12/25/2018 mammogram - [facility], and 01/10/2011 mammogram - [facility]. There are scattered areas of fibroglandular density in both breasts (category b / 25%-50% glandular tissue). Current study was also evaluated with a Computer Aided Detection (CAD) system. No significant masses, calcifications, or other findings are seen in either breast. There has been no significant interval change. IMPRESSION: NEGATIVE There is no mammographic evidence of malignancy. A 1 year screening mammogram is recommended. Based on the Tyrer Cuzick model (a risk assessment model) the patient's lifetime risk is 8.2% and her 10 year risk is 6.1%. According to the ACR, ACS, and NCCN guidelines, an annual breast MRI exam along with mammogram is recommended if the patient's lifetime risk is 20% or greater. This exam was interpreted at Station ID: [id number]. NOTE: For mammograms, a report in lay terms will be sent to the patient. Approximately 15% of breast malignancies will not be visualized mammographically. In the management of a palpable breast mass, a negative mammogram must not discourage biopsy of a clinically suspicious lesion. Electronically Signed By: Sam blanco/bety:01/06/2023 14:58:18 letter sent: Normal Exam ACR BI-RADS Category 1: Negative [id number]
== END ==
PROVIDERS: PCP Family Medicine; Referring Provider Family Medicine; Visit Provider Family Medicine
DX: Z12.31 Encounter for screening mammogram for malignant neoplasm of breast (principal); Z80.3 Family history of malignant neoplasm of breast
CPT/HCPCS: 77063; 77067

== ENCOUNTER → 2023-02-03 06:43 | Outpatient (CLI) | payer MEDICARE, MEDICAID, SELFPAY ==
--- NOTE | 2023-02-03 06:44 | DI.US.S_ITS ---
PROCEDURE: US THYROID INDICATIONS: thyroid nodule re-check TECHNIQUE: Real-time scanning was performed of the thyroid gland, with image documentation. COMPARISON: [facility], US, US THYROID, 12/14/2021, 7:40. FINDINGS: Right: Thyroid lobe measures 6.1 x 1.5 x 1.9 cm, and is homogeneous in echotexture. Left: Thyroid lobe measures 4.8 x 1.3 x 0.9 cm, and is homogenous in echotexture. Isthmus: 2 mm thick. Nodule number: 1 Location: Right inferior Size: 3.1 x 2.1 x 1.6 cm, previously 3.0 x 2.0 x 2.3 cm. Composition: Solid Echogenicity: Isoechoic Shape: wider than tall. Margins: Smooth Echogenic foci: None Total points: 3 ACR TI-RADS category: Mildly suspicious Nodule number: 2 Location: Left inferior Size: Stable, 0.5 cm. Composition: Solid Echogenicity: Hypoechoic Shape: wider than tall. Margins: Smooth Echogenic foci: Peripheral calcification Total points: 6 ACR TI-RADS category: Moderately suspicious Nodule number: 3 Location: Left mid Size: 0.3 cm. Composition: Solid Echogenicity: Hypoechoic Shape: wider than tall. Margins: Smooth Echogenic foci: None Total points: 4 ACR TI-RADS category: Moderately suspicious IMPRESSION: Thyroid nodules as above. Recommend follow-up as below. ACR TI-RADS definitions and recommendations: TI-RADS 1 (benign): 0 points. FNA not needed. TI-RADS 2 (not suspicious): 2 points. FNA not needed. TI-RADS 3 (mildly suspicious): 3 points. * FNA if 2.5 cm or larger, follow up if 1.5 cm or larger (at 1, 3, and 5 years). TI-RADS 4 (moderately suspicious): 4-6 points. * FNA if 1.5 cm or larger, follow up if 1 cm or larger (at 1, 2, 3, and 5 years). TI-RADS 5 (highly suspicious): 7 points or more. * FNA if 1 cm or larger, follow up if 0.5 cm or larger (every year for 5 years). Dictated by: Mart Cohen M.D. on 02/03/2023 at 12:59 Approved by: Mart Cohen M.D. on 02/03/2023 at 13:05
== END ==
LOC: US 06:44
PROVIDERS: PCP Family Medicine; Referring Provider Family Medicine; Visit Provider Family Medicine
DX: E04.2 Nontoxic multinodular goiter (principal)
CPT/HCPCS: 76536

== ENCOUNTER → 2023-03-28 08:56 | Outpatient (CLI) | payer MEDICARE, MEDICAID, SELFPAY ==
[2023-03-28 10:18] LABS: Alanine Aminotransferase 114 IU/L (<35); Albumin Globulin Ratio 1.2 (1.0-2.8); Alkaline Phosphatase 121 U/L (38-126); Aspartate Aminotransferase 90 IU/L (14-36); BUN Creatinine Ratio 18.4 (6-22); Bilirubin Total 0.9 mg/dL (0.2-1.3); Blood Urea Nitrogen 14 mg/dL (7-17); Calcium 9.3 mg/dL (8.4-10.2); Carbon Dioxide 25 mmol/L (22-32); Chloride 102 mmol/L (98-107); Estimated Glomerular Filt Rate > 60 mL/min (>60); Globulin 3.3 g/dL (1.7-4.1); Glucose 90 mg/dL (80-110); HEMOLYSIS < 15 (0-50); Lipase 162 U/L (23-300); Potassium 4.2 mmol/L (3.4-5.1); Sodium 135 mmol/L (137-145); Total Protein 7.3 g/dL (6.3-8.2)
[2023-03-28 11:04] LABS: Hep C Virus Ab w/Reflex Quant NEGATIVE s/c (NEGATIVE)
[2023-03-30 04:20] LABS: Arsenic < 1 ug/L (0-9); Cadmium, Blood 1.2 ug/L (0.0-1.2); Lead, Blood < 1.0 ug/dL (0.0-3.4); Mercury, Blood 3.4 ug/L (0.0-14.9)
== END ==
LOC: LAB 08:57
PROVIDERS: PCP Family Medicine; Referring Provider Family Medicine; Visit Provider Family Medicine
DX: R79.89 Other specified abnormal findings of blood chemistry (principal)
CPT/HCPCS: 36415; 80053; 82175; 82300; 83655; 83690; 83825; 86803

== ENCOUNTER → 2023-03-31 09:04 | Outpatient (CLI) | payer MEDICARE, MEDICAID, SELFPAY ==
--- NOTE | 2023-03-31 09:06 | DI.US.S_ITS ---
PROCEDURE: US ABDOMEN LIMITED INDICATIONS: PERSISTENT AND INCREASING LIVER FUNCTION TESTS TECHNIQUE: Real-time scanning was performed of the abdominal and retroperitoneal organs, with image documentation. COMPARISON: [facility], US, US ABDOMEN LIMITED, 08/08/2020, 14:45. FINDINGS: Liver: Liver is normal in size and homogeneous in echotexture. Gallbladder: There is no gallstones. No gallbladder wall thickening or pericholecystic fluid. No sonographic Navarro's sign. Biliary ducts: Intrahepatic bile ducts are non-dilated. Extrahepatic bile duct caliber measures 3.9 mm. Normal is 6-7 mm or less in diameter, or 10 mm or less post-cholecystectomy. Pancreas: Visualized portions of the pancreas are sonographically normal. Miscellaneous: No free abdominal fluid. IMPRESSION: Unremarkable ultrasound examination of right upper quadrant abdomen. Dictated by: Marty Dillard M.D. on 03/31/2023 at 11:42 Approved by: Marty Dillard M.D. on 03/31/2023 at 11:47
== END ==
LOC: US 09:05
PROVIDERS: PCP Family Medicine; Referring Provider Family Medicine; Visit Provider Family Medicine
DX: R79.89 Other specified abnormal findings of blood chemistry (principal)
CPT/HCPCS: 76705

== ENCOUNTER → 2023-05-02 12:06 | Outpatient (CLI) | payer MEDICARE, MEDICAID, SELFPAY ==
[2023-05-02 13:15] LABS: Influenza A - CEPHEID Flu A NEGATIVE (NEGATIVE); Influenza B - CEPHEID Flu B NEGATIVE (NEGATIVE); Respiratory Syncytial Virus Negative (Negative)
[2023-05-02 13:46] LABS: COVID-19 CEPHEID 4-PLEX PCR Negative (Negative)
== END ==
PROVIDERS: PCP Family Medicine; Visit Provider Nurse Practitioner Family
DX: R05.9 Cough, unspecified (principal)
CPT/HCPCS: 0241U

== ENCOUNTER → 2023-08-01 11:41 | Outpatient (CLI) | payer MEDICARE, SELFPAY ==
[2023-08-01 12:23] LABS: Add Manual Diff / Slide Review NO; Basophils Absolute Auto 0 /uL (0-100); Basophils Percent Auto 0.8 % (0-2); Eosinophils Absolute Auto 100 /uL (0-450); Eosinophils Percent Auto 1.3 % (2-4); Hematocrit 35.4 % (36-46); Hemoglobin 12.1 g/dL (12.0-16.0); Lymphocytes Absolute Auto 1600 /uL (1100-4500); Lymphocytes Percent Auto 28.1 % (25-40); Mean Corpuscular HGB Conc 34.2 % (30-36); Mean Corpuscular Hemoglobin 30.6 PG (26-34); Mean Corpuscular Volume 89.5 fL (80-100); Monocytes Absolute Auto 400 /uL (0-900); Monocytes Percent Auto 7.5 % (3-14); Neutrophils Absolute Auto 3500 /uL (1500-7000); Neutrophils Percent Auto 62.3 % (50-75); Platelet Count 210 X10^3/uL (150-400); Red Blood Cell Count 3.96 X10^6/uL (4.0-5.2); Red Cell Distribution Width 13.9 % (11.6-14.8); White Blood Cell Count 5.6 X10^3/uL (4.5-11.0)
[2023-08-01 12:39] LABS: INR 1.3 (0.9-1.3); Prothrombin Time 14.9 SECONDS (9.4-12.5)
== END ==
PROVIDERS: PCP Family Medicine; Referring Provider Internal Medicine; Visit Provider Internal Medicine
DX: R79.89 Other specified abnormal findings of blood chemistry (principal)
CPT/HCPCS: 36415; 85025; 85610

== ENCOUNTER → 2023-08-15 07:31 | Outpatient (CLI) | payer MEDICARE, SELFPAY ==
[2023-08-15 12:50] LABS: Occult Blood 1 Negative (Negative); Occult Blood 2 Negative (Negative); Occult Blood 3 Negative (Negative)
== END ==
PROVIDERS: PCP Family Medicine; Referring Provider Nurse Practitioner Family; Visit Provider Nurse Practitioner Family
DX: R19.7 Diarrhea, unspecified (principal)
CPT/HCPCS: 82270

== ENCOUNTER → 2023-08-18 07:10 | Outpatient (CLI) | payer MEDICARE, SELFPAY ==
[2023-08-18 13:07] LABS: Clostridium Difficile Tox PCR Negative for C. diff (Negative)
== END ==
LOC: LAB 07:11
PROVIDERS: PCP Family Medicine; Referring Provider Nurse Practitioner Family; Visit Provider Nurse Practitioner Family
DX: R19.7 Diarrhea, unspecified (principal)
CPT/HCPCS: 87329; 87493

== ENCOUNTER → 2023-11-04 10:02 | Outpatient (CLI) | payer MEDICARE, SELFPAY ==
[2023-11-04 11:07] LABS: Add Manual Diff / Slide Review NO; Basophils Absolute Auto 0 /uL (0-100); Eosinophils Absolute Auto 100 /uL (0-450); Eosinophils Percent Auto 2.5 % (2-4); Hematocrit 36.4 % (36-46); Hemoglobin 12.2 g/dL (12.0-16.0); Lymphocytes Absolute Auto 1100 /uL (1100-4500); Lymphocytes Percent Auto 23.9 % (25-40); Mean Corpuscular HGB Conc 33.6 % (30-36); Mean Corpuscular Hemoglobin 30.8 PG (26-34); Mean Corpuscular Volume 91.6 fL (80-100); Monocytes Absolute Auto 300 /uL (0-900); Monocytes Percent Auto 7.2 % (3-14); Neutrophils Absolute Auto 3000 /uL (1500-7000); Neutrophils Percent Auto 65.4 % (50-75); Platelet Count 209 X10^3/uL (150-400); Red Blood Cell Count 3.98 X10^6/uL (4.0-5.2); Red Cell Distribution Width 13.9 % (11.6-14.8); White Blood Cell Count 4.6 X10^3/uL (4.5-11.0)
[2023-11-04 11:19] LABS: Alanine Aminotransferase 30 IU/L (<35); Albumin Globulin Ratio 1.2 (1.0-2.8); Alkaline Phosphatase 101 U/L (38-126); Aspartate Aminotransferase 31 IU/L (14-36); Bilirubin Total 0.7 mg/dL (0.2-1.3); Blood Urea Nitrogen 18 mg/dL (7-17); Calcium 9.2 mg/dL (8.4-10.2); Carbon Dioxide 27 mmol/L (22-32); Chloride 105 mmol/L (98-107); Estimated Glomerular Filt Rate > 60 mL/min (>60); Globulin 3.4 g/dL (1.7-4.1); Glucose 83 mg/dL (80-110); HEMOLYSIS < 15 (0-50); Potassium 3.9 mmol/L (3.4-5.1); Sodium 136 mmol/L (137-145); Total Protein 7.4 g/dL (6.3-8.2)
[2023-11-04 12:06] LABS: Vitamin D 25 Hydroxy (D3) 29.9 ng/mL (30.0-100.0)
[2023-11-09 14:36] LABS: Alpha-Tocopherol 10.3 mg/L (9.0-29.0); Gamma-Tocopherol 0.7 mg/L (0.5-4.9)
== END ==
PROVIDERS: PCP Family Medicine; Referring Provider Internal Medicine; Visit Provider Internal Medicine
DX: K74.3 Primary biliary cirrhosis (principal)
CPT/HCPCS: 36415; 80053; 82306; 84446; 84590; 85025

== ENCOUNTER → 2024-02-10 08:15 | Outpatient (CLI) | payer MEDICARE, SELFPAY ==
--- NOTE | 2024-02-10 08:16 | DI.US.S_ITS ---
PROCEDURE: US THYROID INDICATIONS: nodules TECHNIQUE: Real-time scanning was performed of the thyroid gland, with image documentation. COMPARISON: [facility], US, US THYROID, 02/03/2023, 7:20. FINDINGS: Thyroid: Right lobe measures 1.6 x 1.7 x 4 cm. Left lobe measures 1.5 x 1.2 x 3.7 cm. Isthmus is 0.3 cm thick. Echotexture is homogeneous. Nodule number: 1 Location: Right thyroid lobe Size: 2.8 cm. Composition: Solid Echogenicity: Isoechoic Shape: wider than tall. Margins: Ill-defined Echogenic foci: None Total points: 3 ACR TI-RADS category: TR 3, mildly suspicious and meeting size criteria for recommending fine-needle aspiration. Nodule number: 2 Location: Left inferior pole Size: 0.5 cm. Composition: Solid Echogenicity: Hypoechoic Shape: wider than tall. Margins: Irregular Echogenic foci: Rim calcification Total points: 8 ACR TI-RADS category: TR 5, highly suspicious and meeting size criteria for annual follow-up until 5 years. IMPRESSION: 1. Recommend fine needle aspiration of the 2.8 cm right thyroid TR 3 isoechoic nodule. 2. Recommend annual follow-up of the 0.5 cm left thyroid lobe rim calcified nodule up to 5 years. Dictated by: Bigg Barr M.D. on 02/10/2024 at 16:44 Approved by: Bigg Barr M.D. on 02/10/2024 at 16:51
== END ==
PROVIDERS: PCP Family Medicine; Referring Provider Family Medicine; Visit Provider Family Medicine
DX: E04.2 Nontoxic multinodular goiter (principal)
CPT/HCPCS: 76536

== ENCOUNTER → 2024-04-26 11:34 | Outpatient (CLI) | payer MEDICARE, SELFPAY ==
[2024-04-26 12:58] LABS: Add Manual Diff / Slide Review NO; Basophils Absolute Auto 0 /uL (0-100); Basophils Percent Auto 0.7 % (0-2); Eosinophils Absolute Auto 100 /uL (0-450); Eosinophils Percent Auto 2.8 % (2-4); Hematocrit 37.2 % (36-46); Hemoglobin 12.6 g/dL (12.0-16.0); Lymphocytes Absolute Auto 1400 /uL (1100-4500); Lymphocytes Percent Auto 26.4 % (25-40); Mean Corpuscular HGB Conc 33.9 % (30-36); Mean Corpuscular Hemoglobin 30.4 PG (26-34); Mean Corpuscular Volume 89.8 fL (80-100); Monocytes Absolute Auto 400 /uL (0-900); Monocytes Percent Auto 7.1 % (3-14); Neutrophils Absolute Auto 3300 /uL (1500-7000); Platelet Count 206 X10^3/uL (150-400); Red Blood Cell Count 4.14 X10^6/uL (4.0-5.2); Red Cell Distribution Width 13.5 % (11.6-14.8); White Blood Cell Count 5.3 X10^3/uL (4.5-11.0)
== END ==
PROVIDERS: PCP Family Medicine; Referring Provider Internal Medicine; Visit Provider Internal Medicine
DX: K74.3 Primary biliary cirrhosis (principal)
CPT/HCPCS: 36415; 85025

== ENCOUNTER → 2024-05-07 10:38 | Outpatient (CLI) | payer MEDICARE, SELFPAY ==
[2024-05-07 11:53] LABS: Alanine Aminotransferase 45 IU/L (<35); Albumin Globulin Ratio 1.4 (1.0-2.8); Alkaline Phosphatase 81 U/L (38-126); Aspartate Aminotransferase 42 IU/L (14-36); BUN Creatinine Ratio 21.3 (6-22); Bilirubin Total 0.7 mg/dL (0.2-1.3); Blood Urea Nitrogen 17 mg/dL (7-17); Calcium 9.3 mg/dL (8.4-10.2); Carbon Dioxide 24 mmol/L (22-32); Chloride 103 mmol/L (98-107); Estimated Glomerular Filt Rate > 60 mL/min (>60); Globulin 2.8 g/dL (1.7-4.1); Glucose 131 mg/dL (80-110); HEMOLYSIS < 15 (0-50); Potassium 4.2 mmol/L (3.4-5.1); Sodium 133 mmol/L (137-145); Total Protein 6.8 g/dL (6.3-8.2)
[2024-05-07 12:08] LABS: Vitamin D 25 Hydroxy (D3) 38.6 ng/mL (30.0-100.0)
== END ==
PROVIDERS: PCP Family Medicine; Referring Provider Internal Medicine; Visit Provider Internal Medicine
DX: K74.3 Primary biliary cirrhosis (principal)
CPT/HCPCS: 36415; 80053; 82306

== ENCOUNTER → 2024-05-15 09:18 | Outpatient (CLI) | payer MEDICARE, SELFPAY ==
[2024-05-15 11:04] LABS: Influenza A - CEPHEID Flu A POSITIVE (NEGATIVE); Influenza B - CEPHEID Flu B NEGATIVE (NEGATIVE); Respiratory Syncytial Virus Negative (Negative)
[2024-05-15 12:26] LABS: COVID-19 CEPHEID 4-PLEX PCR Negative (Negative)
== END ==
PROVIDERS: PCP Family Medicine; Visit Provider Physician Assistant Surgical
DX: R05.1 Acute cough (principal)
CPT/HCPCS: 0241U

== ENCOUNTER → 2024-05-15 09:29 | Outpatient (CLI) | payer MEDICARE, MEDICAID, SELFPAY ==
--- NOTE | 2024-05-15 09:30 | DI.RAD.S_ITS ---
PROCEDURE: XR CHEST 2V INDICATIONS: Cough, rib soreness TECHNIQUE: 2 views of the chest were acquired. COMPARISON: [facility], , CHEST 1 VIEW, 08/22/2015, 17:38. FINDINGS: Surgical changes and devices: None. Lungs and pleura: Lungs are clear. No pleural effusions or pneumothorax. Mediastinum: Mediastinal contours are normal. Heart size is normal. Bones and chest wall: No suspicious bony abnormalities. Soft tissues appear unremarkable. IMPRESSION: No acute cardiopulmonary abnormality is seen. Dictated by: Wali Rawls M.D. on 05/15/2024 at 9:53 Approved by: Wali Rawls M.D. on 05/15/2024 at 9:53
== END ==
PROVIDERS: PCP Family Medicine; Referring Provider Physician Assistant Surgical; Visit Provider Physician Assistant Surgical
DX: R05.1 Acute cough (principal)
CPT/HCPCS: 0241U; 71046

== ENCOUNTER 2024-06-14 11:04 | Emergency (ER) | payer MEDICARE, MEDICAID, SELFPAY ==
[2024-06-14 11:07] VITALS: BP 158/99; PULSE 90; RESP 22; TEMP 36.4; O2SAT 99; BMI 28.3
--- NOTE | 2024-06-14 12:21 | ED_ITS ---
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 Patient presents with complaint of ?I am in a manic episode?. States she has a history of bipolar was on Trileptal from the to 2012. She did quite well on this medication. She was seeking to restart it. She states that she saw mental health during that. And was found to be stable enough that they stopped her medication and she was able to stop following with them. She states normally it is fairly well controlled but has been worse lately. She states she feels manic. She denies any thoughts of harm to herself or others, she was states she was not having any concerns for homelessness, food or other instability. She was following regularly with her primary care doctor Javier as well as Gastroenterology Dr. Dick at [facility]. Patient denies any drug allergies. Discontinues tobacco, denies any alcohol, no recreational drugs. States he was to use marijuana but did not like how it made her feel. She describes a good social network. Related Data Home Medications Medication Instructions Recorded Confirmed ursodiol 500 mg tablet 500 mg PO BID 08/22/23 05/19/24 Previous Rx's Medication Instructions Recorded apixaban 5 mg tablet (Eliquis) 5 mg PO BID #180 tabs 03/26/24 celecoxib 200 mg capsule (Celebrex) 200 mg PO BID #180 caps 03/26/24 losartan 100 mg tablet See Rx Instructions .Route 03/26/24 .COMPLEX #90 tabs metoprolol succinate 25 mg 25 mg PO DAILY #90 tabs 03/26/24 tablet,extended release 24 hr acyclovir 400 mg tablet 400 mg PO 5XD PRN outbreak #30 tabs 03/30/24 clobetasol 0.05 % topical ointment 1 applic topical BID #60 grams 03/30/24 benzonatate 200 mg capsule 200 mg PO BID PRN cough #30 caps 05/15/24 promethazine 6.25 mg-codeine 10 5 ml PO Q6H PRN cough #118 mL 05/19/24 mg/5 mL syrup oxcarbazepine 300 mg tablet 300 mg PO BID 7 days #14 tabs 06/14/24 (Trileptal) Allergies Allergy/AdvReac Type Severity Reaction Status Date / Time No Known Drug Allergies Allergy Verified 05/19/24 10:48 Review of Systems Review of Systems ROS Unobtainable: All systems reviewed & are unremarkable except as noted in HPI and below Patient History Medical History Irritable bowel disease Elevated liver function tests Chronic lower back pain Transaminitis Chronic atrial fibrillation Lichen sclerosus Anticoagulated on Coumadin Fractures (~1999) Chronic back pain (~2001) Rosacea (~2012) Herpes (~2013) Chicken pox Tinnitus Hypertension (~2003) Atrial fibrillation (~2013) Surgical History Anesthesia Surgical procedure planned History of cardioversion (~08/2015) Family History Father Hypertension Colon cancer Mother Age: 96 A-fib Heart disease Stroke Breast cancer Social History marital status: unknown household members: none occupational status: employed alcohol intake: current substance use type: does not use Smoking Status: Current some day smoker alcohol intake frequency: 0-2 drinks per day Exam Narrative Exam Narrative: GENERAL: Alert and oriented x three, female in mild distress, patient is cooperative, pressured speech. HEENT: Head normocephalic, atraumatic, EOMI, pupils reactive, face symmetric, moist mucous membranes NECK: Supple, full range of motion CARDIOVASCULAR: Regular rate and rhythm without murmurs, rubs or gallops. RESPIRATORY: Breath sounds equal bilaterally, no wheezes rales or rhonchi. ABDOMEN: Soft, nontender. Normoactive bowel sounds all 4 quadrants. No guarding or rebound, rigidity, no mass : No CVA tenderness EXTREMITIES: Normal range of motion, no clubbing or edema. Neurovascularly intact NEUROLOGICAL: Cranial nerves II through XII grossly intact. Moving all extremities SKIN: Warm, dry, no petechiae, no rashes or lesions. PSYCH: No SI, no HI, patient denies any hallucinations, does have little bit of pressured speech. Slightly tangential thinking but it is able to hold a conversation. Does not appear to be responding to any internal stimuli. Initial Vital Signs Initial Vital Signs: Vital Signs Temperature 97.6 F 06/14/24 11:07 Pulse Rate 90 06/14/24 11:07 Respiratory Rate 22 06/14/24 11:07 Blood Pressure 158/99 H 06/14/24 11:07 Pulse Oximetry 99 06/14/24 11:07 Oxygen Delivery Method Room Air 06/14/24 11:07 Course Orders Ordered: ED Orders 06/14/24 11:27 Consult to [facility] - Supervisor Drying And Winding Stat 06/14/24 12:34 Urinalysis and Microscopic Stat Urine Drug Screen, Rapid Stat 06/14/24 12:45 Acetaminophen Stat Complete Blood Count AUTO DIFF Stat Comprehensive Metabolic Panel Stat Ethanol (ETOH) Stat Free T4, Direct Thyroxine Stat Salicylate Stat Thyroid Stimulating Hormone Stat Vital Signs Vital signs: Vital Signs - 8 hr 06/14/24 11:07 06/14/24 15:00 Temperature 97.6 F Pulse Rate 90 92 H Respiratory Rate 22 16 Blood Pressure 158/99 H 156/93 H Pulse Oximetry 99 97 Oxygen Delivery Method Room Air Room Air MDM - Psych Lab Data 06/14/24 12:45 06/14/24 12:45 Labs: Lab Results 06/14/24 06/14/24 06/14/24 Range/Units 12:34 12:34 12:45 WBC 6.7 (4.5-11.0) X10^3/uL RBC 4.37 (4.0-5.2) X10^6/uL Hgb 13.2 (12.0-16.0) g/dL Hct 39.6 (36-46) % MCV 90.6 (80-100) fL MCH 30.3 (26-34) PG MCHC 33.4 (30-36) % RDW 14.4 (11.6-14.8) % Plt Count 298 (150-400) X10^3/uL Neut % (Auto) 69.5 (50-75) % Lymph % (Auto) 21.6 L (25-40) % [place] % (Auto) 6.7 (3-14) % Eos % (Auto) 1.6 L (2-4) % Baso % (Auto) 0.6 (0-2) % Neut # (Auto) 4600 (6135-5793) /uL Lymph # (Auto) 1400 (0122-2017) /uL [place] # (Auto) 400 (0-900) /uL Eos # (Auto) 100 (0-450) /uL Baso # (Auto) 0 (0-100) /uL Sodium 137 (137-145) mmol/L Potassium 3.9 (3.4-5.1) mmol/L Chloride 102 (98-107) mmol/L Carbon Dioxide 28 (22-32) mmol/L BUN 15 (7-17) mg/dL Creatinine 0.90 (0.52-1.04) mg/dL Estimated GFR > 60 (>60) mL/min BUN/Creatinine Ratio 16.7 (6-22) Glucose 76 L (80-110) mg/dL Calcium 9.7 (8.4-10.2) mg/dL Total Bilirubin 0.6 (0.2-1.3) mg/dL AST 45 H (14-36) IU/L ALT 34 (<35) IU/L Alkaline Phosphatase 72 (38-126) U/L Total Protein 8.1 (6.3-8.2) g/dL Albumin 4.4 (3.5-5.0) g/dL Globulin 3.7 (1.7-4.1) g/dL Albumin/Globulin Ratio 1.2 (1.0-2.8) TSH 1.28 (0.47-4.68) uIU/mL Free T4 1.33 (0.78-2.19) ng/dL Urine Color Yellow Urine Appearance Clear Urine pH 5.5 Normal (4.5-8.0) Ur Specific [place] <=1.005 (1.000-1.035) Urine Protein Negative (Negative) Urine Glucose (UA) Negative (Negative) g/dL Urine Ketones Negative (NEGATIVE) Urine Occult Blood Negative (Negative) Urine Nitrate Negative (Negative) Urine Bilirubin Negative (NEGATIVE) Urine Urobilinogen 0.2 (0.2) E.U./dL Ur Leukocyte Esterase Negative (NEGATIVE) Urine RBC None seen (0-5/HPF) Urine WBC None seen (0-5/HPF) Ur Squamous Epith Cells None seen (0-5/HPF) Urine Bacteria None seen (None) Ur Culture Indicated? Cult not indicated Vol Urine Centrifuged 10ml (spun) Salicylates < 1.0 (<20) mg/dL U Opiates 300ng/mL cut Negative (Negative) Ur Oxycodone Screen Negative (Negative) Urine Methadone Screen Negative (Negative) Acetaminophen < 10 (10-30) ug/mL Ur Barbiturates Screen Negative (Negative) U Tricyclic Antidepress Negative (Negative) Ur Phencyclidine Scrn Negative (Negative) Ur Amphetamines Screen Negative (Negative) U Methamphetamines Scrn Negative (Negative) Ur MDMA Scrn (Ecstasy) Negative (Negative) U Benzodiazepines Scrn Negative (Negative) Urine Cocaine Screen Negative (Negative) U Marijuana (THC) Screen Negative (Negative) Urine Specific [place] Normal (Normal) Ethyl Alcohol < 10 ( - 10) mg/dL Ur Creatinine Normal (Normal) MDM Narrative Medical decision making narrative: Labs normal white count, hemoglobin and platelets, electrolytes are appropriate BUN creatinine normal glucose is 76, AST is 45 otherwise LFTs are negative, TSH is 1.28, free T4 is 1.33. Urine UA is negative for acute change, UDS is negative, Tylenol, salicylate and ETOH are negative. Patient met with social worker assistant she was seeking return to mental health and potentially restarting her old medication Trileptal. She states it was very helpful she was aware that it is an anticonvulsant but was on it for her bipolar disorder. She has no other high-risk factors currently she does not appear to be gravely disabled. Discharge Plan Departure Patient Disposition: Home Clinical Impression: Sharon Activity Restrictions/Additional Instructions: Please follow up with Dr. Herrera at your appointment, they can assist with referral to psychiatry. The [facility] team will also be reaching out to you. A short term prescription for your prior bipolar medication is included take 1 tablet twice daily. You will need to follow up to have this continued and adjusted or titrated. Prescription was sent to [facility] in [place]. If you're feeling suicidal or having suicidal thoughts, contact the suicide hotline (this number is also available for self referral for services at [facility]): . Please return for new or worsening symptoms if you have thoughts of harming yourself or others, if you feel your unsafe in any time we have any other new or concerning changes. Prescriptions: New oxcarbazepine [Trileptal] 300 mg tablet 300 mg PO BID 7 Days Qty: 14 0RF No Action benzonatate 200 mg capsule 200 mg PO BID PRN (Reason: cough) Qty: 30 0RF Eliquis 5 mg tablet 5 mg PO BID Qty: 180 3RF celecoxib [Celebrex] 200 mg capsule 200 mg PO BID Qty: 180 1RF losartan 100 mg tablet See Rx Instructions .ROUTE .COMPLEX Qty: 90 3RF Dose Instruction: TAKE 1 TABLET DAILY Rx Instructions: TAKE 1 TABLET DAILY metoprolol succinate 25 mg tablet extended release 24 hr 25 mg PO DAILY Qty: 90 3RF acyclovir 400 mg tablet 400 mg PO 5XD PRN (Reason: outbreak) Qty: 30 6RF clobetasol 0.05 % ointment 1 applic TOP BID Qty: 60 2RF promethazine-codeine 6.25-10 mg/5 mL syrup 5 ml PO Q6H PRN (Reason: cough) Qty: 118 0RF Rx Instructions: Cautioned, medication can cause sedation. Do not use for prolonged periods of time; use as needed for shortness effective treatment duration; taper dose by 50% every 2 days to discontinue if prolonged use. ursodiol 500 mg tablet 500 mg PO BID Referrals: Lucas Herrera DO [Primary Care Provider] - Stand Alone Forms: Patient Portal/API/Survey
[2024-06-14 12:51] LABS: Add Manual Diff / Slide Review NO; Basophils Absolute Auto 0 /uL (0-100); Basophils Percent Auto 0.6 % (0-2); Eosinophils Absolute Auto 100 /uL (0-450); Eosinophils Percent Auto 1.6 % (2-4); Hematocrit 39.6 % (36-46); Hemoglobin 13.2 g/dL (12.0-16.0); Lymphocytes Absolute Auto 1400 /uL (1100-4500); Lymphocytes Percent Auto 21.6 % (25-40); Mean Corpuscular HGB Conc 33.4 % (30-36); Mean Corpuscular Hemoglobin 30.3 PG (26-34); Mean Corpuscular Volume 90.6 fL (80-100); Monocytes Absolute Auto 400 /uL (0-900); Monocytes Percent Auto 6.7 % (3-14); Neutrophils Absolute Auto 4600 /uL (1500-7000); Neutrophils Percent Auto 69.5 % (50-75); Platelet Count 298 X10^3/uL (150-400); Red Blood Cell Count 4.37 X10^6/uL (4.0-5.2); Red Cell Distribution Width 14.4 % (11.6-14.8); White Blood Cell Count 6.7 X10^3/uL (4.5-11.0)
[2024-06-14 13:02] LABS: Appearance Urine UA CLEAR; Bilirubin Urine UA NEGATIVE (NEGATIVE); Color Urine UA YELLOW; Glucose Urine UA NEGATIVE (Negative); Ketones Urine UA NEGATIVE (NEGATIVE); Leukocyte Esterase Urine UA NEGATIVE (NEGATIVE); Nitrite Urine UA NEGATIVE (Negative); Occult Blood Urine UA NEGATIVE (Negative); Protein Urine UA NEGATIVE (Negative); Specific Gravity Urine UA <=1.005 (1.000-1.035); Urobilinogen Urine UA 0.2 E.U./dL (0.2)
[2024-06-14 13:03] LABS: Urine Volume 10mL (spun); pH Urine UA 5.5 (4.5-8.0)
[2024-06-14 13:04] LABS: Bacteria Urine None Seen; Culture Indicated Urine Cult Not Indicated; RBC Urine None Seen (0-5/HPF); Squamous Epithelial Cell Urine None Seen (0-5/HPF); WBC Urine None Seen (0-5/HPF)
[2024-06-14 13:05] LABS: Ur Creatinine Normal (Normal); Ur Specific Gravity Normal (Normal); Urine Amphetamines Negative (Negative); Urine Barbiturates Negative (Negative); Urine Benzodiazepines Negative (Negative); Urine Cocaine Negative (Negative); Urine MDMA Negative (Negative); Urine Methadone Negative (Negative); Urine Opiates Negative (Negative); Urine Oxycodone Negative (Negative); Urine Phencyclidine Negative (Negative); Urine THC Negative (Negative); Urine Tricyclic Antidepressant Negative (Negative); Urine pH Normal (Normal)
[2024-06-14 13:06] LABS: Acetaminophen < 10 ug/mL (10-30); Alanine Aminotransferase 34 IU/L (<35); Albumin 4.4 g/dL (3.5-5.0); Albumin Globulin Ratio 1.2 (1.0-2.8); Alkaline Phosphatase 72 U/L (38-126); Aspartate Aminotransferase 45 IU/L (14-36); BUN Creatinine Ratio 16.7 (6-22); Bilirubin Total 0.6 mg/dL (0.2-1.3); Blood Urea Nitrogen 15 mg/dL (7-17); Calcium 9.7 mg/dL (8.4-10.2); Carbon Dioxide 28 mmol/L (22-32); Chloride 102 mmol/L (98-107); Estimated Glomerular Filt Rate > 60 mL/min (>60); Ethanol (ETOH) < 10 mg/dL; Globulin 3.7 g/dL (1.7-4.1); Glucose 76 mg/dL (80-110); HEMOLYSIS < 15 (0-50); Potassium 3.9 mmol/L (3.4-5.1); Salicylate < 1.0 mg/dL (<20); Sodium 137 mmol/L (137-145); Total Protein 8.1 g/dL (6.3-8.2)
[2024-06-14 13:57] LABS: Free T4, Direct Thyroxine 1.33 ng/dL (0.78-2.19)
[2024-06-14 14:11] LABS: Thyroid Stimulating Hormone 1.28 uIU/mL (0.47-4.68)
--- NOTE | 2024-06-14 14:50 | CM.SWNOTE ---
ED RESIDENTIAL DIRECTOR Assessment Note: Pt is a 74yo female, resident of [place], is seen in the ED for a manic episode. Pt has a known hx of bipolar disorder with a previous rx for trileptal. Pt lives in a house with her son on the same property. Pt's Primary Care Provider is Dr. Lucas Herrera and insurance is [facility]. Reviewed chart and discussed with multidisciplinary team pt's medical status and initial discharge needs. RESIDENTIAL DIRECTOR entered room to meet with patient, introduced self and role. Pt endorses feeling safe with discharge home if she is able to have a bridge prescription until she sees her PCP. She is also requesting a MH referral through her PCP. RESIDENTIAL DIRECTOR calls bottle label inspector at [facility], it is reported pt does not have an open referral to MH at this time but can be discussed with PCP. ED RESIDENTIAL DIRECTOR coordinated an appointment with PCP on 06/15 at 11:30am. Provided follow up information to patient at discharge. RESIDENTIAL DIRECTOR sent referral to [facility] via [facility] Crisis Line and gave pt demographic information. Pt offered contact for [facility] team and pt declined. RESIDENTIAL DIRECTOR reviews this with ED provider Dr. Sol who indicates agreement and understanding; she will send trileptal rx until pt can get that continued with PCP. Plan: Pt to discharge home and will follow up with PCP on 06/15 at 11:30am. JIMMIE Preciado
[2024-06-14 15:00] VITALS: BP 156/93; PULSE 92; RESP 16; O2SAT 97
== END 2024-06-14 15:01 | disposition home or self-care (01) ==
PROVIDERS: Emergency Provider Emergency Medicine; PCP Family Medicine
DX: F30.9 Manic episode, unspecified (principal)
CPT/HCPCS: 80053; 80305; 80320; 80329; 81001; 84439; 84443; 85025; 99283; G0480

== ENCOUNTER 2024-07-11 09:07 | Emergency (ER) | payer MEDICARE, SELFPAY ==
--- NOTE | 2024-07-11 09:16 | EKG_ITS ---
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
--- NOTE | 2024-07-11 09:18 | PC.NURSE ---
Patient declined pain meds from provider, wishes to take normal home meds Tylenol and Celebrex first
[2024-07-11 09:21] VITALS: BP 178/98; PULSE 90; RESP 16; TEMP 36.3; O2SAT 99; BMI 27.4
--- NOTE | 2024-07-11 09:28 | DI.RAD.S_ITS ---
PROCEDURE: XR HIP W PEL IF DONE RT 2V INDICATIONS: fall, R pelvic pain, lumbar pain TECHNIQUE: AP pelvis with lateral view(s) of the right hip(s). COMPARISON: None. FINDINGS: Bones: Suspected fractures of the medial right pubic ring. Soft tissues: The visualized bowel gas pattern is normal. No suspicious soft tissue calcifications. IMPRESSION: Suspected fractures of the medial right pubic ring. Dictated by: Colin Vincent M.D. on 07/11/2024 at 10:24 Approved by: Colin Vincent M.D. on 07/11/2024 at 10:25
--- NOTE | 2024-07-11 09:28 | DI.CT.S_ITS ---
PROCEDURE: CT HEAD/BRAIN WO CON INDICATIONS: fall , hit head, pelvic pain/r suprapubic region, lspine TECHNIQUE: Noncontrast 4.5 mm thick angled axial sections acquired from the foramen magnum to the vertex, with coronal and sagittal reformats. For radiation dose reduction, the following was used: automated exposure control, adjustment of mA and/or kV according to patient size. COMPARISON: None. FINDINGS: Image quality: Diagnostic. CSF spaces: Basal cisterns are patent. No extra-axial fluid collections. The ventricles are symmetric in size and shape. Brain: No intracranial bleeds or mass effect. There is cerebral volume loss, with resultant ventricular and sulcal prominence. There are periventricular and deep white matter chronic small vessel ischemic changes. There is intracranial internal carotid artery atherosclerosis. Skull and face: Calvarium and visualized facial bones appear intact, without suspicious lesions. Anterior scalp contusion. Sinuses: Visualized sinuses and mastoids are clear. IMPRESSION: No acute intracranial pathology. Dictated by: Colin Vincent M.D. on 07/11/2024 at 10:31 Approved by: Colin Vincent M.D. on 07/11/2024 at 10:33
--- NOTE | 2024-07-11 09:28 | DI.CT.S_ITS ---
PROCEDURE: CT CERVICAL SPINE WO CON INDICATIONS: fall , hit head, pelvic pain/r suprapubic region, lspine TECHNIQUE: Noncontrast 3 mm thick sections acquired from the skull base to the T4 level. Sagittal and coronal reformats were then constructed. For radiation dose reduction, the following was used: automated exposure control, adjustment of mA and/or kV according to patient size. COMPARISON: None. FINDINGS: Image quality: Excellent. Bones: No fractures or dislocations. Visualized superior ribs are intact. Soft tissues: Prevertebral soft tissues are normal in thickness. No paravertebral hematomas. No apical pneumothoraces. 1.9 cm right thyroid nodule; this has been previously worked up. IMPRESSION: No displaced fracture or traumatic subluxation. Dictated by: Colin Vincent M.D. on 07/11/2024 at 10:33 Approved by: Colin Vincent M.D. on 07/11/2024 at 10:34
--- NOTE | 2024-07-11 09:28 | DI.RAD.S_ITS ---
PROCEDURE: XR LUMBAR SPINE 2-3V INDICATIONS: fall, R pelvic pain, lumbar pain TECHNIQUE: 3 views of the lumbar spine were acquired. COMPARISON: None. FINDINGS: Bones: 5 [id number] vertebrae are present. There is normal bony alignment. No vertebral body compression fractures. No suspicious bony lesions. Mild to moderate, multilevel degenerative disc disease and lower lumbar facet arthrosis. Soft tissues: Overlying bowel gas pattern is normal. No suspicious soft tissue calcifications. IMPRESSION: Mild to moderate, multilevel degenerative disc disease and lower lumbar facet arthrosis. Dictated by: Colin Vincent M.D. on 07/11/2024 at 10:25 Approved by: Colin Vincent M.D. on 07/11/2024 at 10:26
--- NOTE | 2024-07-11 09:31 | ED_ITS ---
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 Patient states that she was walking into her house had gone through the sliding door turned and fell backwards hitting her head on the sliding door and sliding down to the floor. Patient states she landed on her right hip and hand. States she was had some increase of low back pain which she has a baseline but also quite a bit of right groin pain. She states it is quite painful to move or ambulate, lifting her right leg increase his pain. Lifting her left leg increases the pain a little bit but does much more tolerable. She denies any loss of consciousness no headache, no dizziness. No chest pain or shortness of breath. No nausea or vomiting no issues with bowel movements or urination. No numbness tingling or weakness. She was not taken any [id number] pain medications today. She would like to take her home Tylenol. She denies any drug allergies. Patient denies any drug allergies. History of tobacco use, denies alcohol, no recreational drugs. Related Data Home Medications Medication Instructions Recorded Confirmed ursodiol 500 mg tablet 500 mg PO BID 08/22/23 06/24/24 Previous Rx's Medication Instructions Recorded celecoxib 200 mg capsule (Celebrex) 200 mg PO BID #180 caps 03/26/24 losartan 100 mg tablet See Rx Instructions .Route 03/26/24 .COMPLEX #90 tabs metoprolol succinate 25 mg 25 mg PO DAILY #90 tabs 03/26/24 tablet,extended release 24 hr acyclovir 400 mg tablet 400 mg PO 5XD PRN outbreak #30 tabs 03/30/24 clobetasol 0.05 % topical ointment 1 applic topical BID #60 grams 03/30/24 benzonatate 200 mg capsule 200 mg PO BID PRN cough #30 caps 05/15/24 promethazine 6.25 mg-codeine 10 5 ml PO Q6H PRN cough #118 mL 05/19/24 mg/5 mL syrup apixaban 5 mg tablet (Eliquis) 5 mg PO BID #20 tabs 07/05/24 oxcarbazepine 300 mg tablet 300 mg PO BID #60 tabs 07/05/24 (Trileptal) codeine sulfate 15 mg tablet 15 mg PO Q6H PRN pain #10 tabs 07/11/24 Allergies Allergy/AdvReac Type Severity Reaction Status Date / Time No Known Drug Allergies Allergy Verified 06/24/24 15:14 Review of Systems Review of Systems ROS Unobtainable: All systems reviewed & are unremarkable except as noted in HPI and below Patient History Medical History Rash Irritable bowel disease Elevated liver function tests Chronic lower back pain Transaminitis Chronic atrial fibrillation Lichen sclerosus Anticoagulated on Coumadin Fractures (~1999) Chronic back pain (~2001) Rosacea (~2012) Herpes (~2013) Chicken pox Tinnitus Hypertension (~2003) Atrial fibrillation (~2013) Surgical History Anesthesia Surgical procedure planned History of cardioversion (~08/2015) Family History Father Hypertension Colon cancer Mother Age: 96 A-fib Heart disease Stroke Breast cancer Social History marital status: unknown household members: none occupational status: employed alcohol intake: current substance use type: does not use alcohol intake frequency: 0-2 drinks per day Exam Narrative Exam Narrative: GEN: Patient appears in my distress. HEAD: No evidence of trauma, no raccoon/Seo sign. NECK: Nontender, painless range of motion, trachea midline [Negative/positive] Nexus criteria, no midline line tenderness, distracting injury, altered mental status, neuro deficit, recent EtOH. EYES: PERRLA, EOMI ENT: External inspection normal, trachea is midline, TM's are normal no hemotypanum, Nares are clear, no septal hematoma, no dental or oral injury, airway is normal and with normal occlusion, No bony tenderness RESP: Chest is nontender and has symmetric movement, no ecchymosis, breath sounds are normal no crackles, wheezes or rales CVS: Heart sounds are normal, no murmur noted, No JVD. ABG/GI: Nontender, soft, normal bowel sounds, no distention, no organomegaly, pelvic rock is negative, very mild pain in the right suprapubic region over the pubic symphysis. No bruising or skin changes. NEURO: Oriented AOx3, neuro is grossly intact, sensation and motor is normal all 4 extremities moving, cranial nerves II through XII are intact, GCS is 15 PSYCH: Normal mood and affect SKIN: Intact, warm and dry, no crepitus and without decubitus BACK: No CVA tenderness, no vertebral tenderness, no step-off's, no crepitus EXT: Atraumatic, hips are nontender, patient has increased pain with right leg raise, no pedal edema, normal color and temperature, normal range of motion of extremities with normal tendon exam, 2+ pulses in all four extremities Initial Vital Signs Initial Vital Signs: Vital Signs Temperature 97.4 F L 07/11/24 09:21 Pulse Rate 90 07/11/24 09:21 Respiratory Rate 16 07/11/24 09:21 Blood Pressure 178/98 H 07/11/24 09:21 Pulse Oximetry 99 07/11/24 09:21 Oxygen Delivery Method Room Air 07/11/24 09:21 Course Orders Ordered: ED Orders 07/11/24 09:16 EKG-12 Lead Routine 07/11/24 09:28 CT cervical spine wo con Stat CT head/brain wo con Stat XR hip w pel RT 2V Stat XR lumbar spine 2-3V Stat CBC Auto Diff [Complete Blood Count AUTO DIFF] Stat CMP [Comprehensive Metabolic Panel] Stat Lipase Stat Vital Signs Vital signs: Vital Signs - 8 hr 07/11/24 09:21 07/11/24 10:00 07/11/24 10:28 Temperature 97.4 F L Pulse Rate 90 83 80 Respiratory Rate 16 18 18 Blood Pressure 178/98 H 183/99 H Pulse Oximetry 99 98 98 Oxygen Delivery Method Room Air Room Air Room Air 07/11/24 10:30 07/11/24 10:30 07/11/24 11:00 Temperature Pulse Rate 80 Respiratory Rate 18 Blood Pressure 166/77 H 153/83 H Pulse Oximetry 98 Oxygen Delivery Method 07/11/24 11:00 07/11/24 11:30 07/11/24 11:30 Temperature Pulse Rate 81 74 Respiratory Rate Blood Pressure 162/85 H Pulse Oximetry 96 96 Oxygen Delivery Method Room Air MDM - Fall Lab Data 07/11/24 09:28 07/11/24 09:28 Labs: Lab Results 07/11/24 Range/Units 09:28 WBC 6.1 (4.5-11.0) X10^3/uL RBC 3.97 L (4.0-5.2) X10^6/uL Hgb 12.3 (12.0-16.0) g/dL Hct 35.9 L (36-46) % MCV 90.4 (80-100) fL MCH 31.0 (26-34) PG MCHC 34.3 (30-36) % RDW 14.8 (11.6-14.8) % Plt Count 256 (150-400) X10^3/uL Neut % (Auto) 78.1 H (50-75) % Lymph % (Auto) 14.1 L (25-40) % [place] % (Auto) 6.1 (3-14) % Eos % (Auto) 1.0 L (2-4) % Baso % (Auto) 0.7 (0-2) % Neut # (Auto) 4800 (0314-6436) /uL Lymph # (Auto) 900 L (5438-4377) /uL [place] # (Auto) 400 (0-900) /uL Eos # (Auto) 100 (0-450) /uL Baso # (Auto) 0 (0-100) /uL Sodium 127 L (137-145) mmol/L Potassium 4.0 (3.4-5.1) mmol/L Chloride 95 L (98-107) mmol/L Carbon Dioxide 24 (22-32) mmol/L BUN 12 (7-17) mg/dL Creatinine 0.50 L (0.52-1.04) mg/dL Estimated GFR > 60 (>60) mL/min BUN/Creatinine Ratio 24.0 H (6-22) Glucose 106 H (70-99) mg/dL Calcium 9.2 (8.4-10.2) mg/dL Total Bilirubin 0.9 (0.2-1.3) mg/dL AST 58 H (14-36) IU/L ALT 47 H (<35) IU/L Alkaline Phosphatase 79 (38-126) U/L Total Protein 7.4 (6.3-8.2) g/dL Albumin 4.3 (3.5-5.0) g/dL Globulin 3.1 (1.7-4.1) g/dL Albumin/Globulin Ratio 1.4 (1.0-2.8) Lipase 98 (23-300) U/L ECG Data Attestation: I personally reviewed and interpreted this ECG as follows: Interpretation: AFib rate of 69 QRS of 94. No acute ST changes appreciated. MDM Narrative Medical decision making narrative: 74-year-old female anticoagulants Eliquis who had a sounds like a mechanical ground level fall did hit her head is on Eliquis based on age head CT and cervical spine were obtained her main complaint is right groin pain she was able to ambulate but it is painful. She was nontender on exam particularly over the right hip but we will obtain pelvis with right hip x-ray and L-spine as patient has chronic low back pain but states it is mildly increased fairly. She defers anything stronger than Tylenol at this time. Head CT no acute intracranial pathology CT cervical no displaced fracture or traumatic subluxation. Right hip x-ray suspected fractures medial right pubic ring. Lumbar spine x-ray [id number] multilevel degenerative disc disease and lower lumbar facet arthrosis. Labs show white count of 6 hemoglobin of 12 platelets of 256. Sodium 127 chloride 95 creatinine 0.5 glucose of 106 AST is 58 ALT is 47. Spoke with orthopedic surgery, Dr. Mcneal. Patient is able to weightbear have her follow up outpatient in the next week. Can weightbear as tolerated with a walker. Discussed with the patient she feels comfortable returning home we will give a short course of codeine for pain management. She does not wish for any narcotic pain medication here. Plan for follow up with Orthopedic surgery discussed return precautions. Reviewed all findings with the patient today. She notes she was chronically hyponatremic. Patient is ambulating here in the department with walker. Discharge Plan Departure Patient Disposition: Home Clinical Impression: Closed pelvic ring fracture, Fall Activity Restrictions/Additional Instructions: You have a pelvic ring fracture or a fracture of the upper and lower pubic rami on the right. Follow up with Orthopedic surgery. Call Friday to set up an appointment. You may weightbear as tolerated with a walker. You can continue your home medications as prescribed. If needed a prescription for orally at narcotic has included. This medication can make you sleepy do not drive, perform hazardous activities or make any major decisions while taking it. This medication will make you constipated please take a stool softener once to twice daily until stools are soft and regular. Prescription sent to [facility] in [place] Please return for severe headaches,, new numbness weakness or difficulty with movement, inability to ambulate, new chest pain or shortness of breath, vomiting, loss of bowel or bladder control or other new or concerning changes. Prescriptions: New codeine sulfate 15 mg tablet 15 mg PO Q6H PRN (Reason: pain) Qty: 10 0RF No Action benzonatate 200 mg capsule 200 mg PO BID PRN (Reason: cough) Qty: 30 0RF celecoxib [Celebrex] 200 mg capsule 200 mg PO BID Qty: 180 1RF losartan 100 mg tablet See Rx Instructions .ROUTE .COMPLEX Qty: 90 3RF Dose Instruction: TAKE 1 TABLET DAILY Rx Instructions: TAKE 1 TABLET DAILY metoprolol succinate 25 mg tablet extended release 24 hr 25 mg PO DAILY Qty: 90 3RF acyclovir 400 mg tablet 400 mg PO 5XD PRN (Reason: outbreak) Qty: 30 6RF clobetasol 0.05 % ointment 1 applic TOP BID Qty: 60 2RF promethazine-codeine 6.25-10 mg/5 mL syrup 5 ml PO Q6H PRN (Reason: cough) Qty: 118 0RF Rx Instructions: Cautioned, medication can cause sedation. Do not use for prolonged periods of time; use as needed for shortness effective treatment duration; taper dose by 50% every 2 days to discontinue if prolonged use. Eliquis 5 mg tablet 5 mg PO BID Qty: 20 0RF oxcarbazepine [Trileptal] 300 mg tablet 300 mg PO BID Qty: 60 5RF ursodiol 500 mg tablet 500 mg PO BID Referrals: Lucas Herrera DO [Primary Care Provider] - Mickey Mcneal MD [Physician] - Stand Alone Forms: Patient Portal/API/Survey
[2024-07-11 09:36] LABS: Add Manual Diff / Slide Review NO; Basophils Absolute Auto 0 /uL (0-100); Basophils Percent Auto 0.7 % (0-2); Eosinophils Absolute Auto 100 /uL (0-450); Hematocrit 35.9 % (36-46); Hemoglobin 12.3 g/dL (12.0-16.0); Lymphocytes Absolute Auto 900 /uL (1100-4500); Lymphocytes Percent Auto 14.1 % (25-40); Mean Corpuscular HGB Conc 34.3 % (30-36); Mean Corpuscular Volume 90.4 fL (80-100); Monocytes Absolute Auto 400 /uL (0-900); Monocytes Percent Auto 6.1 % (3-14); Neutrophils Absolute Auto 4800 /uL (1500-7000); Neutrophils Percent Auto 78.1 % (50-75); Platelet Count 256 X10^3/uL (150-400); Red Blood Cell Count 3.97 X10^6/uL (4.0-5.2); Red Cell Distribution Width 14.8 % (11.6-14.8); White Blood Cell Count 6.1 X10^3/uL (4.5-11.0)
[2024-07-11 09:47] LABS: Alanine Aminotransferase 47 IU/L (<35); Albumin 4.3 g/dL (3.5-5.0); Albumin Globulin Ratio 1.4 (1.0-2.8); Alkaline Phosphatase 79 U/L (38-126); Aspartate Aminotransferase 58 IU/L (14-36); Bilirubin Total 0.9 mg/dL (0.2-1.3); Blood Urea Nitrogen 12 mg/dL (7-17); Calcium 9.2 mg/dL (8.4-10.2); Carbon Dioxide 24 mmol/L (22-32); Chloride 95 mmol/L (98-107); Estimated Glomerular Filt Rate > 60 mL/min (>60); Globulin 3.1 g/dL (1.7-4.1); Glucose 106 mg/dL (70-99); HEMOLYSIS < 15 (0-50); Lipase 98 U/L (23-300); Sodium 127 mmol/L (137-145); Total Protein 7.4 g/dL (6.3-8.2)
[2024-07-11 10:00] VITALS: BP 183/99; PULSE 83; RESP 18; O2SAT 98
[2024-07-11 10:28] VITALS: PULSE 80; RESP 18; O2SAT 98
[2024-07-11 10:30] VITALS: BP 166/77; PULSE 80; O2SAT 98
[2024-07-11 11:00] VITALS: BP 153/83; PULSE 81; RESP 18; O2SAT 96
[2024-07-11 11:30] VITALS: BP 162/85; PULSE 74; O2SAT 96
== END 2024-07-11 12:04 | disposition home or self-care (01) ==
PROVIDERS: Emergency Provider Emergency Medicine; PCP Family Medicine
DX: S32.810A Multiple fractures of pelvis with stable disruption of pelvic ring, initial encounter for closed fracture (principal); S09.90XA Unspecified injury of head, initial encounter; W17.89XA Other fall from one level to another, initial encounter; I48.91 Unspecified atrial fibrillation; Z79.01 Long term (current) use of anticoagulants
CPT/HCPCS: 36415; 70450; 72100; 72125; 73502; 80053; 83690; 85025; 93005; 99284; 99285

== ENCOUNTER 2024-07-27 23:31 | Inpatient (IN) | payer MEDICARE, SELFPAY ==
[2024-07-27 23:36] VITALS: BP 112/71; PULSE 66; O2SAT 94
[2024-07-27 23:38] VITALS: BP 112/71; PULSE 60; RESP 20; TEMP 36.6; O2SAT 95; BMI 27.8
--- NOTE | 2024-07-27 23:38 | DI.RAD.S_ITS ---
PROCEDURE: XR CHEST 1V INDICATIONS: Chest Pain TECHNIQUE: One view of the chest was acquired. COMPARISON: [facility], [place], XR CHEST 2V, 05/15/2024, 9:26. [facility], [facility], CHEST 1 VIEW, 08/22/2015, 17:38. FINDINGS AND IMPRESSION: Suspect right lower lung and left perihilar opacities which may be infectious/inflammatory. Low lung volumes. Possible trace effusions. Consider future imaging surveillance to assess for resolution. Cardiomegaly. Aortic calcifications. Degenerative osseous changes. Dictated by: Sam Escobar M.D. on 07/28/2024 at 0:02 Approved by: Sam Escobar M.D. on 07/28/2024 at 0:02
--- NOTE | 2024-07-27 23:45 | EKG_ITS ---
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
--- NOTE | 2024-07-27 23:58 | ED.GENADULT ---
HPI - General Adult General Chief complaint: Shortness of Breath/Dyspnea Stated complaint: shoulderpain Time Seen by Provider: 07/27/24 23:39 Source: patient and EMS Mode of arrival: EMS History of Present Illness HPI narrative: 74-year-old female with history of atrial fibrillation for which she takes Eliquis anticoagulation, felt short of breath with chest discomfort anterior and posterior since earlier today 4:00 p.m., occasionally smokes, not feeling feverish, denies any recent cough. Feel short of breath with minimal activity. Feels like she can not catch her breath. No treatments tried. Related Data Home Medications ?Medication ?Instructions ?Recorded ?Confirmed ursodiol 500 mg tablet 500 mg PO BID 08/22/23 06/24/24 Previous Rx's ?Medication ?Instructions ?Recorded celecoxib 200 mg capsule (Celebrex) 200 mg PO BID #180 caps 03/26/24 losartan 100 mg tablet See Rx Instructions .Route 03/26/24 .COMPLEX #90 tabs metoprolol succinate 25 mg 25 mg PO DAILY #90 tabs 03/26/24 tablet,extended release 24 hr acyclovir 400 mg tablet 400 mg PO 5XD PRN outbreak #30 tabs 03/30/24 clobetasol 0.05 % topical ointment 1 applic topical BID #60 grams 03/30/24 benzonatate 200 mg capsule 200 mg PO BID PRN cough #30 caps 05/15/24 promethazine 6.25 mg-codeine 10 5 ml PO Q6H PRN cough #118 mL 05/19/24 mg/5 mL syrup apixaban 5 mg tablet (Eliquis) 5 mg PO BID #20 tabs 07/05/24 oxcarbazepine 300 mg tablet 300 mg PO BID #60 tabs 07/05/24 (Trileptal) codeine sulfate 15 mg tablet 15 mg PO Q6H PRN pain #10 tabs 07/11/24 Allergies Allergy/AdvReac Type Severity Reaction Status Date / Time No Known Drug Allergies Allergy Verified 06/24/24 15:14 Patient History Medical History Rash Irritable bowel disease Elevated liver function tests Chronic lower back pain Transaminitis Chronic atrial fibrillation Lichen sclerosus Anticoagulated on Coumadin Fractures (~1999) Chronic back pain (~2001) Rosacea (~2012) Herpes (~2013) Chicken pox Tinnitus Hypertension (~2003) Atrial fibrillation (~2013) Surgical History Anesthesia Surgical procedure planned History of cardioversion (~08/2015) Family History Father Hypertension Colon cancer Mother Age: 96 A-fib Heart disease Stroke Breast cancer Social History marital status: unknown household members: none occupational status: employed Smoking Status: Current every day smoker alcohol intake: current substance use type: does not use Smoking Status: Current every day smoker alcohol intake frequency: 0-2 drinks per day Exam Narrative Exam Narrative: GENERAL: Well-developed patient, in mild distress. HEAD: Atraumatic. Normocephalic. EYES: Pupils equal round and reactive. Extraocular motions intact. No scleral icterus. No injection or drainage. ENT: Nose without bleeding, purulent drainage. Throat without erythema, tonsillar hypertrophy or exudate. Airway patent. NECK: Trachea midline. Non tender CARDIOVASCULAR: Regular rate and rhythm without murmurs, gallops, or rubs. RESPIRATORY: Bibasilar rhonchi, no retractions, speaks in just short of full sentences, seems to have shallow respiration pattern. GASTROINTESTINAL: Abdomen soft, non-tender, nondistended. EXTREMITIES: No edema or joint tenderness. BACK: Nontender without deformity or crepitance. No flank tenderness. NEURO: AOx3. Motor functions grossly nonfocal. SKIN: No rash or erythema of visible areas. Initial Vital Signs Initial Vital Signs: Vital Signs Pulse Rate 66 07/27/24 23:36 Blood Pressure 112/71 07/27/24 23:36 Pulse Oximetry 94 07/27/24 23:36 Course Orders Ordered: ED Orders 07/27/24 23:37 EKG-12 Lead Stat 07/27/24 23:38 XR chest 1V Stat Complete Blood Count AUTO DIFF Stat Comprehensive Metabolic Panel Stat Lipase Stat Magnesium Stat NT-proBNP (BNP-Adult 18+) Stat PTT Partial Thromboplastin Hai Stat Prothrombin Time INR Stat Troponin & CK Cardiac Panel Stat 07/28/24 00:02 Lactate (Lactic Acid) Stat Procalcitonin Stat 07/28/24 01:02 Covid-19 + FLU A/B + RSV - PCR Stat 07/28/24 01:44 Blood Culture Stat Discontinued Medications Albuterol (Albuterol 2.5 Mg/3 Ml Neb (Adult)) 2.5 mg INH NOW ONE Stop: 07/28/24 01:06 Last Admin: 07/28/24 01:23 Dose: 2.5 mg Documented By: SIMONE Aspirin (Aspirin 81 Mg Chew Tab) 324 mg PO NOW ONE Stop: 07/27/24 23:39 Doxycycline Hyclate (Doxycycline Hyclate 100 Mg Tablet) 100 mg PO NOW ONE Stop: 07/28/24 01:08 Last Admin: 07/28/24 02:04 Dose: 100 mg Ceftriaxone Sodium 1,000 mg/ (Sodium Chloride) 100 mls @ 200 mls/hr IV NOW ONE Stop: 07/28/24 01:07 Last Admin: 07/28/24 01:12 Dose: 200 mls/hr Documented By: RICARDO Morphine Sulfate (Morphine 4 Mg/Ml Inj) 4 mg IV NOW ONE Stop: 07/28/24 01:06 Last Admin: 07/28/24 01:12 Dose: 4 mg Documented By: RICARDO Ondansetron HCl (Ondansetron 4 Mg/2 Ml Inj) 4 mg IV NOW ONE Stop: 07/28/24 01:06 Last Admin: 07/28/24 01:11 Dose: 4 mg Documented By: RICARDO Vital Signs Vital signs: Vital Signs - 8 hr 07/27/24 23:36 07/27/24 23:36 07/27/24 23:38 Temperature 97.9 F Pulse Rate 66 60 Respiratory Rate 20 Blood Pressure 112/71 112/71 Pulse Oximetry 94 95 Oxygen Delivery Method Room Air Oxygen Flow Rate Fraction of Inspired Oxygen 07/28/24 00:00 07/28/24 00:00 07/28/24 00:30 Temperature Pulse Rate 61 61 Respiratory Rate 24 Blood Pressure 107/65 Pulse Oximetry 94 94 Oxygen Delivery Method Oxygen Flow Rate Fraction of Inspired Oxygen 07/28/24 00:30 07/28/24 01:00 07/28/24 01:00 Temperature Pulse Rate 62 Respiratory Rate 25 H Blood Pressure 116/73 110/65 Pulse Oximetry 93 Oxygen Delivery Method Oxygen Flow Rate Fraction of Inspired Oxygen 07/28/24 01:23 Temperature Pulse Rate 66 Respiratory Rate 26 H Blood Pressure Pulse Oximetry 93 Oxygen Delivery Method Room Air Oxygen Flow Rate 0 Fraction of Inspired Oxygen 21 Medical Decision Making Lab Data Lab results reviewed: Yes I reviewed the patient's lab results. Lab results narrative: White blood cell count 8800, hemoglobin 11.6, platelets adequate. Glucose 147. Normal renal function. Sodium 122 low. Potassium 3.9 normal. Serum CO2 22. Slight alkaline phosphatase elevation, other liver functions normal range. Lipase normal. Troponin negative/unmeasurable. Lactate not elevated. BNP 1620. 07/28/24 00:02 07/28/24 00:02 Labs: Lab Results 07/28/24 07/28/24 Range/Units 00:02 01:02 WBC 8.8 (4.5-11.0) X10^3/uL RBC 3.74 L (4.0-5.2) X10^6/uL Hgb 11.6 L (12.0-16.0) g/dL Hct 33.6 L (36-46) % MCV 89.9 (80-100) fL MCH 31.0 (26-34) PG MCHC 34.5 (30-36) % RDW 14.5 (11.6-14.8) % Plt Count 269 (150-400) X10^3/uL Neut % (Auto) 90.2 H (50-75) % Lymph % (Auto) 3.3 L (25-40) % [place] % (Auto) 3.9 (3-14) % Eos % (Auto) 0.1 L (2-4) % Baso % (Auto) 2.5 H (0-2) % Neut # (Auto) 8000 H (2747-5615) /uL Lymph # (Auto) 300 L (8774-4401) /uL [place] # (Auto) 300 (0-900) /uL Eos # (Auto) 0 (0-450) /uL Baso # (Auto) 200 H (0-100) /uL PT 14.4 H (9.4-12.5) SECONDS INR 1.3 (0.9-1.3) APTT 36 (25.1-36.5) SECONDS Sodium 122 L (137-145) mmol/L Potassium 3.9 (3.4-5.1) mmol/L Chloride 94 L (98-107) mmol/L Carbon Dioxide 22 (22-32) mmol/L BUN 13 (7-17) mg/dL Creatinine 0.54 (0.52-1.04) mg/dL Estimated GFR > 60 (>60) mL/min BUN/Creatinine Ratio 24.1 H (6-22) Glucose 147 H (70-99) mg/dL Lactate 0.9 (0.7-2.1) mmol/L Calcium 9.0 (8.4-10.2) mg/dL Magnesium 1.8 (1.6-2.3) mg/dL Total Bilirubin 0.8 (0.2-1.3) mg/dL AST 35 (14-36) IU/L ALT 28 (<35) IU/L Alkaline Phosphatase 142 H (38-126) U/L Total Creatine Kinase 133 (30-135) U/L Troponin I < 0.012 (0.01-0.034) ng/mL NT-Pro-B Natriuret Pep 1620 H (<125) pg/mL Total Protein 7.0 (6.3-8.2) g/dL Albumin 4.0 (3.5-5.0) g/dL Globulin 3.0 (1.7-4.1) g/dL Albumin/Globulin Ratio 1.3 (1.0-2.8) Lipase 33 (23-300) U/L SARS-CoV-2 (PCR) Negative (Negative) Influenza A (RT-PCR) Flu a negative (NEGATIVE) Influenza B (RT-PCR) Flu b negative (NEGATIVE) RSV (PCR) Negative (Negative) Imaging Data Chest x-ray: Radiologist's Impression: [address] [address] XRay Report Signed Patient: Cora Yin MR#: [id number] : 1950 Acct:[id number] Age/Sex: 74 / F Date of Service: 07/27/24 Loc: ED Accession Number: [id number] Procedure: XR chest 1V Ordering Provider: Codey Dorman MD PROCEDURE: XR CHEST 1V INDICATIONS: Chest Pain TECHNIQUE: One view of the chest was acquired. COMPARISON: [facility], XR CHEST 2V, 05/15/2024, 9:26. [facility], CHEST 1 VIEW, 08/22/2015, 17:38. FINDINGS AND IMPRESSION: Suspect right lower lung and left perihilar opacities which may be infectious/inflammatory. Low lung volumes. Possible trace effusions. Consider future imaging surveillance to assess for resolution. Cardiomegaly. Aortic calcifications. Degenerative osseous changes. Dictated by: Sam Escobar M.D. on 07/28/2024 at 0:02 Approved by: Sam Escobar M.D. on 07/28/2024 at 0:02 ECG Data Attestation: I personally reviewed and interpreted this ECG as follows: Interpretation: Atrial fibrillation with ventricular rate 61, no obvious ST segment elevation or depression changes. T-wave inversion lead 3 but upright in contiguous lead 2 and F other inferior leads. QRS 92, QTC 463. MDM Narrative Medical decision making narrative: 74-year-old female with shortness of breath since earlier today, anterior and posterior truncal discomfort. History of atrial fibrillation on apixaban. Afebrile, sirs screen negative. Crackles bibasilar, no retractions, however seems to breathe shallowly, in just short of full sentences. Lab studies: White blood cell count 8800, hemoglobin 11.6, platelets adequate. Glucose 147. Normal renal function. Sodium 122 low. Potassium 3.9 normal. Serum CO2 22. Slight alkaline phosphatase elevation, other liver functions normal range. Lipase normal. Troponin negative/unmeasurable. Lactate not elevated. BNP 1620. Chest x-ray shows right lower lobe and left perihilar infiltrates. See radiology report. COVID Flu RSV negative. Blood cultures, IV ceftriaxone, oral doxycycline. Morphine for chest pain with Zofran, SVN albuterol given. Still feels like she cannot catch her breath. Does not feel like she can go home. PCP Javier. We will contact hospitalist. [phone], case discussed with hospitalist Dr. Flannery who accepts patient for admission Discharge Plan Departure Patient Disposition: Admitted as Observation Clinical Impression: Pneumonia, Dyspnea Admit Date/Time: 07/28/24 02:30 Admit Provider: Elijah Flannery
[2024-07-28] VITALS (24 sets, daily range): BP systolic 87–116; BP diastolic 57–78; PULSE 61–77; RESP 16–29; TEMP 36.3–36.8; O2SAT 89–98; BMI 28.6
[2024-07-28 00:23] LABS: Add Manual Diff / Slide Review NO; Basophils Absolute Auto 200 /uL (0-100); Basophils Percent Auto 2.5 % (0-2); Eosinophils Absolute Auto 0 /uL (0-450); Eosinophils Percent Auto 0.1 % (2-4); Hematocrit 33.6 % (36-46); Hemoglobin 11.6 g/dL (12.0-16.0); Lymphocytes Absolute Auto 300 /uL (1100-4500); Lymphocytes Percent Auto 3.3 % (25-40); Mean Corpuscular HGB Conc 34.5 % (30-36); Mean Corpuscular Volume 89.9 fL (80-100); Monocytes Absolute Auto 300 /uL (0-900); Monocytes Percent Auto 3.9 % (3-14); Neutrophils Absolute Auto 8000 /uL (1500-7000); Neutrophils Percent Auto 90.2 % (50-75); Platelet Count 269 X10^3/uL (150-400); Red Blood Cell Count 3.74 X10^6/uL (4.0-5.2); Red Cell Distribution Width 14.5 % (11.6-14.8); White Blood Cell Count 8.8 X10^3/uL (4.5-11.0)
[2024-07-28 00:25] LABS: INR 1.3 (0.9-1.3); Prothrombin Time 14.4 SECONDS (9.4-12.5)
[2024-07-28 00:28] LABS: PTT Partial Thromboplastin Tim 36 SECONDS (25.1-36.5)
[2024-07-28 00:29] LABS: Alanine Aminotransferase 28 IU/L (<35); Albumin Globulin Ratio 1.3 (1.0-2.8); Alkaline Phosphatase 142 U/L (38-126); Aspartate Aminotransferase 35 IU/L (14-36); BUN Creatinine Ratio 24.1 (6-22); Bilirubin Total 0.8 mg/dL (0.2-1.3); Blood Urea Nitrogen 13 mg/dL (7-17); Carbon Dioxide 22 mmol/L (22-32); Chloride 94 mmol/L (98-107); Creatine Kinase 133 U/L (30-135); Estimated Glomerular Filt Rate > 60 mL/min (>60); Glucose 147 mg/dL (70-99); HEMOLYSIS < 15 (0-50); Lipase 33 U/L (23-300); Magnesium 1.8 mg/dL (1.6-2.3); Potassium 3.9 mmol/L (3.4-5.1); Sodium 122 mmol/L (137-145)
[2024-07-28 00:40] LABS: NT-proBNP (BNP-Adult 18+) 1620 pg/mL (<125); Troponin I < 0.012 ng/mL (0.01-0.034)
[2024-07-28] MEDS: ONDANSETRON 4 MG/2 ML INJ IV (01:11)
[2024-07-28] MEDS: cefTRIAXone 1,000 MG in SODIUM CHLORIDE 0.9% 100 ML 200 MG IV ×2 (01:12→20:25)
[2024-07-28] MEDS: MORPHINE 4 MG/ML INJ IV (01:12)
[2024-07-28] MEDS: ALBUTEROL 2.5 MG/3 ML NEB (ADULT) INH (01:23)
[2024-07-28 01:44] LABS: Influenza A - CEPHEID Flu A NEGATIVE (NEGATIVE); Influenza B - CEPHEID Flu B NEGATIVE (NEGATIVE); Respiratory Syncytial Virus Negative (Negative)
[2024-07-28 01:56] LABS: COVID-19 CEPHEID 4-PLEX PCR Negative (Negative)
[2024-07-28] MEDS: DOXYCYCLINE HYCLATE 100 MG TABLET PO ×2 (02:04→20:25)
[2024-07-28 02:25] LABS: Lactate (Lactic Acid) 0.9 mmol/L (0.7-2.1)
[2024-07-28 02:43] LABS: Procalcitonin 0.092 ng/mL (<0.5)
[2024-07-28] MEDS: BENZONATATE 100 MG CAPSULE PO (04:38)
[2024-07-28] MEDS: HYDROMORPHONE 0.5 MG INJ IV (04:38)
--- NOTE | 2024-07-28 06:26 | PC.NURSE ---
Admit Note-Patient brought to room 226 at 0340 via WC, weak , 1 person assist to bed. Neck and back pain, IV Dilaudid prn. Placed on 2L NC for SpO2 < 90%, shortness of breath with activity, crackles posterior. Bed alarm on.
--- NOTE | 2024-07-28 06:34 | PM.HP.1 ---
History of Present Illness History of Present Illness Date Patient Seen: 07/28/24 Time Patient Seen: 05:00 Date of Onset of Symptoms: 08/18/24 Chief complaint: shoulderpain Narrative: The pt is a 74 yo with a hx of a-fib on Eliuqis who presents to the ER with a hx of cough, Rt sided chest pain worse with coughing but there has been no sputum production. She denies any fevers, chills, diaphoresis, pain is not worse with activity, or position. [facility] Medical History Rash Irritable bowel disease Elevated liver function tests Chronic lower back pain Transaminitis Chronic atrial fibrillation Lichen sclerosus Anticoagulated on Coumadin Fractures (~1999) Chronic back pain (~2001) Rosacea (~2012) Herpes (~2013) Chicken pox Tinnitus Hypertension (~2003) Atrial fibrillation (~2013) Surgical History Anesthesia Surgical procedure planned History of cardioversion (~08/2015) Family History Father Hypertension Colon cancer Mother Age: 96 A-fib Heart disease Stroke Breast cancer Social History marital status: unknown household members: none occupational status: employed Smoking Status: Current every day smoker alcohol intake: current substance use type: does not use Meds Home Medications and Allergies Home Medications ?Medication ?Instructions ?Recorded ?Confirmed ?Type ursodiol 500 mg tablet 500 mg PO BID 08/22/23 06/24/24 History celecoxib 200 mg capsule (Celebrex) 200 mg PO BID #180 caps 03/26/24 06/24/24 Rx losartan 100 mg tablet See Rx Instructions .Route 03/26/24 06/24/24 Rx .COMPLEX #90 tabs metoprolol succinate 25 mg 25 mg PO DAILY #90 tabs 03/26/24 06/24/24 Rx tablet,extended release 24 hr acyclovir 400 mg tablet 400 mg PO 5XD PRN outbreak #30 tabs 03/30/24 06/24/24 Rx clobetasol 0.05 % topical ointment 1 applic topical BID #60 grams 03/30/24 06/24/24 Rx benzonatate 200 mg capsule 200 mg PO BID PRN cough #30 caps 05/15/24 06/24/24 Rx promethazine 6.25 mg-codeine 10 5 ml PO Q6H PRN cough #118 mL 05/19/24 06/24/24 Rx mg/5 mL syrup apixaban 5 mg tablet (Eliquis) 5 mg PO BID #20 tabs 07/05/24 Rx oxcarbazepine 300 mg tablet 300 mg PO BID #60 tabs 07/05/24 Rx (Trileptal) codeine sulfate 15 mg tablet 15 mg PO Q6H PRN pain #10 tabs 07/11/24 Rx Allergies Allergy/AdvReac Type Severity Reaction Status Date / Time No Known Drug Allergies Allergy Verified 06/24/24 15:14 Exam Vital Signs (past 8 hours): - 07/27/24 23:36 07/27/24 23:36 07/27/24 23:38 Temperature 97.9 F Pulse Rate 66 60 Respiratory Rate 20 Blood Pressure 112/71 112/71 Pulse Oximetry 94 95 Oxygen Delivery Method Room Air Oxygen Flow Rate Fraction of Inspired Oxygen 07/28/24 00:00 07/28/24 00:00 07/28/24 00:30 Temperature Pulse Rate 61 61 Respiratory Rate 24 Blood Pressure 107/65 Pulse Oximetry 94 94 Oxygen Delivery Method Oxygen Flow Rate Fraction of Inspired Oxygen 07/28/24 00:30 07/28/24 01:00 07/28/24 01:00 Temperature Pulse Rate 62 Respiratory Rate 25 H Blood Pressure 116/73 110/65 Pulse Oximetry 93 Oxygen Delivery Method Oxygen Flow Rate Fraction of Inspired Oxygen 07/28/24 01:23 07/28/24 01:30 07/28/24 01:30 Temperature Pulse Rate 66 65 Respiratory Rate 26 H 23 Blood Pressure 102/63 Pulse Oximetry 93 93 Oxygen Delivery Method Room Air Room Air Oxygen Flow Rate 0 Fraction of Inspired Oxygen 07/28/24 02:00 07/28/24 02:00 07/28/24 02:30 Temperature Pulse Rate 67 66 Respiratory Rate 20 19 Blood Pressure 106/67 Pulse Oximetry 92 92 Oxygen Delivery Method Room Air Room Air Oxygen Flow Rate Fraction of Inspired Oxygen 07/28/24 02:30 07/28/24 03:00 07/28/24 03:00 Temperature Pulse Rate 68 Respiratory Rate 18 Blood Pressure 107/68 95/60 Pulse Oximetry 93 Oxygen Delivery Method Room Air Oxygen Flow Rate Fraction of Inspired Oxygen 07/28/24 04:00 07/28/24 04:00 07/28/24 04:00 Temperature 97.8 F Pulse Rate 69 Respiratory Rate 29 H Blood Pressure 111/78 Pulse Oximetry 92 91 Oxygen Delivery Method Nasal Cannula Room Air Oxygen Flow Rate 0 Fraction of Inspired Oxygen 07/28/24 05:00 07/28/24 05:00 Temperature Pulse Rate Respiratory Rate Blood Pressure Pulse Oximetry 96 96 Oxygen Delivery Method Nasal Cannula Oxygen Flow Rate 2 1.5 Fraction of Inspired Oxygen Fraction of Inspired Oxygen 21 SaO2/FiO2 Ratio 438 Oxygen Delivery Method Nasal Cannula Oxygen Flow Rate 1.5 Const General: cooperative and healthy appearing Resp Auscultation: crackles Cardio Rate: regular rate Neuro General: patient alert, patient awake and patient oriented x3 Objective Labs 07/28/24 00:02 07/28/24 00:02 Labs: Laboratory Results - last 24 hr 07/28/24 07/28/24 00:02 01:02 WBC 8.8 RBC 3.74 L Hgb 11.6 L Hct 33.6 L MCV 89.9 MCH 31.0 MCHC 34.5 RDW 14.5 Plt Count 269 Neut % (Auto) 90.2 H Lymph % (Auto) 3.3 L Grainger % (Auto) 3.9 Eos % (Auto) 0.1 L Baso % (Auto) 2.5 H Neut # (Auto) 8000 H Lymph # (Auto) 300 L Grainger # (Auto) 300 Eos # (Auto) 0 Baso # (Auto) 200 H PT 14.4 H INR 1.3 APTT 36 Sodium 122 L Potassium 3.9 Chloride 94 L Carbon Dioxide 22 BUN 13 Creatinine 0.54 Estimated GFR > 60 BUN/Creatinine Ratio 24.1 H Glucose 147 H Lactate 0.9 Calcium 9.0 Magnesium 1.8 Total Bilirubin 0.8 AST 35 ALT 28 Alkaline Phosphatase 142 H Total Creatine Kinase 133 Troponin I < 0.012 NT-Pro-B Natriuret Pep 1620 H Total Protein 7.0 Albumin 4.0 Globulin 3.0 Albumin/Globulin Ratio 1.3 Lipase 33 Procalcitonin 0.092 SARS-CoV-2 (PCR) Negative Influenza A (RT-PCR) Flu a negative Influenza B (RT-PCR) Flu b negative RSV (PCR) Negative Assessment & Plan Assessment & Plan narrative: I have discussed the pt's presenting symptoms, labs and imaging with the ER provider and have agreed to admit the pt. 1. Pneumonia- the pt's labs sow a normal WBC but CXR shows a RLL, and mild infiltrates in RADHA. The pt was scheduled to go home but she felt too dypneic to be discharged so she will be admitted for continued breathing tx and IV abs. She will be continues on rocephin and oral doxycyclline, duo-nebs and albuterol prn. cough suppressants ordered, repeat labs in am. currently on RA 2. a-fib- continue with home metoprolol and Eliquis, rate controlled at this time. Time-Based Coding :: [TOTAL MINUTES] spent with patient and on the chart (including review of chart, obtaining history, exam, reviewing outside data, placing orders, documenting exam and treatment plan, and counseling patient) on [DATE]. Quality VTE Deep Vein Thrombosis/Pulmonary Embolism Present on Admission: No
[2024-07-28] MEDS: PANTOPRAZOLE DR 20 MG TABLET PO (06:45)
--- NOTE | 2024-07-28 07:26 | PM.HP.1 ---
History of Present Illness History of Present Illness Date Patient Seen: 07/28/24 Chief complaint: shoulder pain Narrative: Chief complaint: Increasing dyspnea shortness and breath cough productive of clear sputum with signs of bronchitis and pulmonary edema History of present illness: 74-year-old female with a history of chronic atrial fibrillation on Eliquis noted decreased strength and exercise endurance progressive over the past several days. She has doubled on her Celebrex to 200 mg twice a day for chronic pain in his also noted swelling in her feet. She came to the emergency room for evaluations. Finding the emergency department significant for bilateral lower lobe chest x-ray findings interpreted as infiltrate White count of 8.8 with 90% neutrophils which is increased from 6.7 and 70% neutrophils in May Sodium is 122 which is also increased from baseline of 137 in May Troponin is negative procalcitonin is negative pro BNP is 1600 For past medical history surgical history family history and social history see bottom of the note Review of systems: No syncope headache diplopia or blurred vision No nausea vomiting diarrhea No paresthesia paresis Physical exam: Very pleasant elderly female HEENT unremarkable Neck 3 cm JVD Heart irregularly irregular rhythm Lungs with diminished breath sounds and bibasilar rales Abdomen nondistended bowel sounds present nontender Extremities 1 to 2+ ankle edema EKG: Atrial fibrillation with controlled ventricular response chronic T-wave inversions in inferior and anterior leads which is unchanged from baseline For the remainder of the objective laboratory and imaging findings please see the bottom of the note Echocardiogram The patient was in atrial fibrillation with heart rates between 69-94 bpm during the exam. Previously sinus. The left ventricle is normal in size. Left ventricular ejection fraction is estimated to be 60 +/- 5%. The right ventricle is normal size. Right ventricular systolic function is borderline reduced. There is mild aortic regurgitation. Compared to the prior echo study, there has been no change in the severity of aortic regurgitation. There is mild tricuspid regurgitation. PASP about 26 mmHg Small pericardial effusion predominantly anterior to the free RV wall with some exudates. No obvious echocardiographic evidence of tamponade. New pericardial effusion. There is a small left-sided pleural effusion. New left pleural effusion. Assessment and plan: Acute diastolic congestive heart failure as evidenced by pleural effusions peripheral edema elevated BNP and x-ray findings consistent pulmonary edema than with bilateral pneumonia Lasix 20 mg IV q.12 Discontinue losartan due to hyponatremia and it is not indicated in diastolic heart failure Possibly secondary to NSAID effect on afferent arteriole with reduced free water balance Suspected community-acquired pneumonia with bronchitis Continue community-acquired pathway ceftriaxone and doxycycline Low-dose prednisolone and bronchodilators Chronic atrial fibrillation: Continue with home metoprolol and Eliquis, rate controlled at this time. DVT prophylaxis covered with anticoagulation Full code blue Time-Based Coding :: 55 minutes spent with patient and on the chart (including review of chart, obtaining history, exam, reviewing outside data, placing orders, documenting exam and treatment plan, and counseling patient) [facility] Medical History Rash Irritable bowel disease Elevated liver function tests Chronic lower back pain Transaminitis Chronic atrial fibrillation Lichen sclerosus Anticoagulated on Coumadin Fractures (~1999) Chronic back pain (~2001) Rosacea (~2012) Herpes (~2013) Chicken pox Tinnitus Hypertension (~2003) Atrial fibrillation (~2013) Surgical History Anesthesia Surgical procedure planned History of cardioversion (~08/2015) Family History Father Hypertension Colon cancer Mother Age: 96 A-fib Heart disease Stroke Breast cancer Social History marital status: unknown household members: none occupational status: employed Smoking Status: Current every day smoker alcohol intake: current substance use type: does not use Meds Home Medications and Allergies Home Medications ?Medication ?Instructions ?Recorded ?Confirmed ?Type ursodiol 500 mg tablet 500 mg PO BID 08/22/23 07/28/24 History celecoxib 200 mg capsule (Celebrex) 200 mg PO BID #180 caps 03/26/24 07/28/24 Rx losartan 100 mg tablet See Rx Instructions .Route 03/26/24 07/28/24 Rx .COMPLEX #90 tabs metoprolol succinate 25 mg 25 mg PO DAILY #90 tabs 03/26/24 07/28/24 Rx tablet,extended release 24 hr acyclovir 400 mg tablet 400 mg PO 5XD PRN outbreak #30 tabs 03/30/24 07/28/24 Rx clobetasol 0.05 % topical ointment 1 applic topical BID #60 grams 03/30/24 07/28/24 Rx apixaban 5 mg tablet (Eliquis) 5 mg PO BID #20 tabs 07/05/24 07/28/24 Rx oxcarbazepine 300 mg tablet 300 mg PO BID #60 tabs 07/05/24 07/28/24 Rx (Trileptal) Allergies Allergy/AdvReac Type Severity Reaction Status Date / Time No Known Drug Allergies Allergy Verified 06/24/24 15:14 Exam Vital Signs (past 8 hours): - 07/27/24 23:36 07/27/24 23:36 07/27/24 23:38 Temperature 97.9 F Pulse Rate 66 60 Respiratory Rate 20 Blood Pressure 112/71 112/71 Pulse Oximetry 94 95 Oxygen Delivery Method Room Air Oxygen Flow Rate Fraction of Inspired Oxygen 07/28/24 00:00 07/28/24 00:00 07/28/24 00:30 Temperature Pulse Rate 61 61 Respiratory Rate 24 Blood Pressure 107/65 Pulse Oximetry 94 94 Oxygen Delivery Method Oxygen Flow Rate Fraction of Inspired Oxygen 07/28/24 00:30 07/28/24 01:00 07/28/24 01:00 Temperature Pulse Rate 62 Respiratory Rate 25 H Blood Pressure 116/73 110/65 Pulse Oximetry 93 Oxygen Delivery Method Oxygen Flow Rate Fraction of Inspired Oxygen 07/28/24 01:23 07/28/24 01:30 07/28/24 01:30 Temperature Pulse Rate 66 65 Respiratory Rate 26 H 23 Blood Pressure 102/63 Pulse Oximetry 93 93 Oxygen Delivery Method Room Air Room Air Oxygen Flow Rate 0 Fraction of Inspired Oxygen 21 07/28/24 02:00 07/28/24 02:00 07/28/24 02:30 Temperature Pulse Rate 67 66 Respiratory Rate 20 19 Blood Pressure 106/67 Pulse Oximetry 92 92 Oxygen Delivery Method Room Air Room Air Oxygen Flow Rate Fraction of Inspired Oxygen 07/28/24 02:30 07/28/24 03:00 07/28/24 03:00 Temperature Pulse Rate 68 Respiratory Rate 18 Blood Pressure 107/68 95/60 Pulse Oximetry 93 Oxygen Delivery Method Room Air Oxygen Flow Rate Fraction of Inspired Oxygen 07/28/24 04:00 07/28/24 04:00 07/28/24 04:00 Temperature 97.8 F Pulse Rate 69 Respiratory Rate 29 H Blood Pressure 111/78 Pulse Oximetry 92 91 Oxygen Delivery Method Nasal Cannula Room Air Oxygen Flow Rate 0 Fraction of Inspired Oxygen 07/28/24 05:00 07/28/24 05:00 Temperature Pulse Rate Respiratory Rate Blood Pressure Pulse Oximetry 96 96 Oxygen Delivery Method Nasal Cannula Oxygen Flow Rate 2 1.5 Fraction of Inspired Oxygen Fraction of Inspired Oxygen 21 SaO2/FiO2 Ratio 438 Oxygen Delivery Method Nasal Cannula Oxygen Flow Rate 1.5 Objective Labs 07/28/24 00:02 07/28/24 00:02 Labs: Laboratory Results - last 24 hr 07/28/24 07/28/24 00:02 01:02 WBC 8.8 RBC 3.74 L Hgb 11.6 L Hct 33.6 L MCV 89.9 MCH 31.0 MCHC 34.5 RDW 14.5 Plt Count 269 Neut % (Auto) 90.2 H Lymph % (Auto) 3.3 L Cassia % (Auto) 3.9 Eos % (Auto) 0.1 L Baso % (Auto) 2.5 H Neut # (Auto) 8000 H Lymph # (Auto) 300 L Cassia # (Auto) 300 Eos # (Auto) 0 Baso # (Auto) 200 H PT 14.4 H INR 1.3 APTT 36 Sodium 122 L Potassium 3.9 Chloride 94 L Carbon Dioxide 22 BUN 13 Creatinine 0.54 Estimated GFR > 60 BUN/Creatinine Ratio 24.1 H Glucose 147 H Lactate 0.9 Calcium 9.0 Magnesium 1.8 Total Bilirubin 0.8 AST 35 ALT 28 Alkaline Phosphatase 142 H Total Creatine Kinase 133 Troponin I < 0.012 NT-Pro-B Natriuret Pep 1620 H Total Protein 7.0 Albumin 4.0 Globulin 3.0 Albumin/Globulin Ratio 1.3 Lipase 33 Procalcitonin 0.092 SARS-CoV-2 (PCR) Negative Influenza A (RT-PCR) Flu a negative Influenza B (RT-PCR) Flu b negative RSV (PCR) Negative Assessment & Plan Time-Based Coding :: [TOTAL MINUTES] spent with patient and on the chart (including review of chart, obtaining history, exam, reviewing outside data, placing orders, documenting exam and treatment plan, and counseling patient) on [DATE]. Quality VTE Deep Vein Thrombosis/Pulmonary Embolism Present on Admission: No
[2024-07-28] MEDS: ALBUTEROL/IPRATROPIUM 3 ML AMPUL INH ×3 (09:18→18:55)
[2024-07-28] MEDS: ACETAMINOPHEN 325 MG TABLET 650 MG PO ×2 (09:20→16:17)
[2024-07-28] MEDS: APIXABAN 5 MG TABLET PO ×2 (09:21→20:25)
[2024-07-28] MEDS: OXcarbazepine 150 MG TABLET 300 MG PO ×2 (09:22→20:25)
[2024-07-28] MEDS: SODIUM CHLORIDE 0.9% FLUSH 10 ML IV ×2 (09:24→20:26)
[2024-07-28] MEDS: polyethylene glycoL 3350 17 GM POWD.PACK PO (10:49)
[2024-07-28] MEDS: OXYCODONE 5 MG/5 ML ORAL SOLUTION PO ×2 (10:49→16:16)
--- NOTE | 2024-07-28 13:39 | DI.ECHO.S_ITS ---
[facility] : : [address] : : [place] : : [id number] : : Phone: [phone] Echocardiogram Report + + :Name: LAUREN ABDI Study Date: 07/28/2024 Height: 63 in : :[facility] ReadingLocation: Weight: 164 lb : : Gender: Female BSA: 1.8 m2 : :: 1950 Age: 74 yrs BP: 102/67 mmHg: :Reason For Study: CONGESTIVE HEART FAILURE : :Ordering Physician: HERSON, : :SUSAN Performed By: Cristina Hamilton : :Referring: SUSAN BAINS : + + Interpretation Summary The patient was in atrial fibrillation with heart rates between 69-94 bpm during the exam. Previously sinus. The left ventricle is normal in size. Left ventricular ejection fraction is estimated to be 60 +/- 5%. The right ventricle is normal size. Right ventricular systolic function is borderline reduced. There is mild aortic regurgitation. Compared to the prior echo study, there has been no change in the severity of aortic regurgitation. There is mild tricuspid regurgitation. PASP about 26 mmHg Small pericardial effusion predominantly anterior to the free RV wall with some exudates. No obvious echocardiographic evidence of tamponade. New pericardial effusion. There is a small left-sided pleural effusion. New left pleural effusion. Procedure: A two-dimensional transthoracic echocardiogram with color flow and Doppler was performed. The study quality was technically adequate. Comparison is made with the echocardiogram of 10/03/2015. The patient was in atrial fibrillation with heart rates between 69-94 bpm during the exam. Left Ventricle: The left ventricle is normal in size. Left ventricular wall thickness is mildly increased. There is no thrombus. Left ventricular ejection fraction is estimated to be 60 +/- 5%. There are no focal wall motion abnormalities. Diastolic function could not be accurately assessed due to atrial fibrillation. Right Ventricle: The right ventricle is normal size. Right ventricular systolic function is borderline reduced. Atria: The left atrium is severely dilated. There has been no significant change since the previous study. The right atrium is severely dilated. There is no Doppler evidence for an interatrial shunt. Mitral Valve: The mitral valve leaflets appear to open well. There is mild mitral annular calcification. There is mild mitral regurgitation. Aortic Valve: The aortic valve is trileaflet. The aortic valve is mildly calcified. There is no aortic valve stenosis. There is mild aortic regurgitation. Compared to the prior echo study, there has been no change in the severity of aortic regurgitation. Tricuspid Valve: The tricuspid valve leaflets are thin and pliable. There is mild tricuspid regurgitation. The right ventricular systolic pressure is estimated to be at least 26 mmHg based on an estimated right atrial pressure of 8 mm Hg. Pulmonic Valve: The pulmonic valve is not well seen, but is grossly normal. There is no pulmonic valvular regurgitation. Great Vessels: The aortic root is normal size. The ascending aorta is moderate-severely enlarged. The IVC is of normal diameter and collapses less than 50% with a sniff. This suggests a right atrial pressure of 8 mm Hg. Pericardium/ Pleura Small pericardial effusion predominantly anterior to the free RV wall with some exudates. No obvious echocardiographic evidence of tamponade. There is a small left-sided pleural effusion. MMode/2D Measurements & Calculations LVIDd: 4.9 cm LVOT diam: 2.2 cm LVIDs: 3.0 cm Ao root diam: 3.2 cm FS: 38.9 % asc Aorta Diam: 4.6 cm IVSd: 1.1 cm Ao Arch Diam (Prox Trans): 2.7 cm LVPWd: 0.99 cm LV thibodeaux. diameter/BSA (cm/m^2): 2.8 LV sys. diameter/BSA (cm/m^2): 1.7 LA A2 area: 35.0 cm2 RA long axis: 7.9 cm LA A4 area: 32.0 cm2 RA area: 30.8 cm2 LA length (vol): 7.3 cm RA vol: 101.5 ml LA vol: 130.4 ml RA : 57.1 ml/m2 LA vol index: 73.4 ml/m2 IVC diam: 2.0 cm RVD1 (basal): 3.5 cm RVD2 (mid): 2.6 cm Doppler Measurements & Calculations Ao V2 max: 160.1 cm/sec LVOT Max Xander: 135.8 cm/sec Ao V2 mean: 104.5 cm/sec LV V1 max P.4 mmHg Ao max P.3 mmHg LV V1 VTI: 21.3 cm Ao mean P.2 mmHg MINAL(I,D): 3.0 cm2 Ao V2 VTI: 26.9 cm MINAL(V,D): 3.2 cm2 sev ratio: 0.79 MINAL indexed to BSA (cm^2/m^2): 1.7 AI P1/2t: 846.1 msec AI dec slope: 138.7 cm/sec2 MV E max xander: 104.6 cm/sec TR max xander: 211.5 cm/sec MV A max xander: 0.46 cm/sec TR max P.9 mmHg MV E/A: 226.6 PA V2 max: 68.2 cm/sec Med Peak E' Xander: 8.8 cm/sec PA V2 mean: 42.6 cm/sec E/E' med: 11.9 PA mean P.83 mmHg Lat Peak E' Xander: 11.4 cm/sec PA pr(Accel): 49.0 mmHg E/E' lat: 9.2 E/e' average: 10.5 MV dec time: 0.19 sec SV(LVOT): 81.6 ml Reading Physician:05:04 PM
[2024-07-28] MEDS: carvediloL 3.125 MG TABLET PO ×2 (14:07→20:25)
[2024-07-28] MEDS: FUROSEMIDE 20 MG/2 ML VIAL IV ×2 (14:07→20:25)
--- NOTE | 2024-07-28 16:58 | PC.NURSE ---
PT reported pain most of shift from coughing and neck/shoulders. PRN oxy and tylenol utilized. Encouraged cough and removal of phlegm. On and off 2L NC with nebs. Morning metoprolol held for soft BPS. Miralax started for constipation. Echo completed. 1x dose of lasix with good output. Bt needing 1x assist for OOB to BSC. Family and bedside, Dr at bedside to update pt and family.
[2024-07-28] MEDS: SENNOSIDES 8.6 MG TABLET 17.2 MG PO (20:25)
[2024-07-29] VITALS (25 sets, daily range): BP systolic 109–143; BP diastolic 67–87; PULSE 69–95; RESP 18–39; TEMP 36.3–37.4; O2SAT 89–95
[2024-07-29 05:01] LABS: Add Manual Diff / Slide Review NO; Basophils Absolute Auto 0 /uL (0-100); Basophils Percent Auto 0.3 % (0-2); Eosinophils Absolute Auto 100 /uL (0-450); Eosinophils Percent Auto 0.9 % (2-4); Hematocrit 31.5 % (36-46); Hemoglobin 10.8 g/dL (12.0-16.0); Lymphocytes Absolute Auto 800 /uL (1100-4500); Lymphocytes Percent Auto 9.9 % (25-40); Mean Corpuscular HGB Conc 34.1 % (30-36); Mean Corpuscular Hemoglobin 30.6 PG (26-34); Mean Corpuscular Volume 89.8 fL (80-100); Monocytes Absolute Auto 800 /uL (0-900); Monocytes Percent Auto 10.3 % (3-14); Neutrophils Absolute Auto 6200 /uL (1500-7000); Neutrophils Percent Auto 78.6 % (50-75); Platelet Count 232 X10^3/uL (150-400); Red Blood Cell Count 3.51 X10^6/uL (4.0-5.2); Red Cell Distribution Width 14.7 % (11.6-14.8); White Blood Cell Count 7.9 X10^3/uL (4.5-11.0)
[2024-07-29 05:18] LABS: BUN Creatinine Ratio 26.5 (6-22); Blood Urea Nitrogen 18 mg/dL (7-17); Calcium 8.5 mg/dL (8.4-10.2); Carbon Dioxide 23 mmol/L (22-32); Chloride 92 mmol/L (98-107); Estimated Glomerular Filt Rate > 60 mL/min (>60); Glucose 104 mg/dL (70-99); HEMOLYSIS < 15 (0-50); Potassium 4.2 mmol/L (3.4-5.1); Sodium 120 mmol/L (137-145)
[2024-07-29] MEDS: ALBUTEROL/IPRATROPIUM 3 ML AMPUL INH ×2 (05:23→18:15)
[2024-07-29] MEDS: PANTOPRAZOLE DR 20 MG TABLET PO (05:54)
--- NOTE | 2024-07-29 07:46 | P.PN_ITS ---
Subjective Subjective Interval history: Chief complaint: Increasing dyspnea shortness and breath cough productive of clear sputum with signs of bronchitis and pulmonary edema History of present illness: 74-year-old female with a history of chronic atrial fibrillation on Eliquis noted decreased strength and exercise endurance progressive over the past several days. She has doubled on her Celebrex to 200 mg twice a day for chronic pain in his also noted swelling in her feet. She came to the emergency room for evaluations. Finding the emergency department significant for bilateral lower lobe chest x- ray findings interpreted as infiltrate White count of 8.8 with 90% neutrophils which is increased from 6.7 and 70% neutrophils in May Sodium is 122 which is also decreased from baseline of 137 in May Troponin is negative procalcitonin is negative pro BNP is 1600 S: She was still feeling weak and is constipated. Her breathing has improved. No fevers overnight. Her 2 sons are with her in the room. All questions were answered. Sodium is 120. Exam Vital Signs (past 8 hours): - 07/29/24 00:00 07/29/24 01:00 07/29/24 05:00 Temperature 97.9 F Pulse Rate 80 Respiratory Rate 22 Blood Pressure 109/72 Pulse Oximetry 89 L 90 L 90 L Oxygen Delivery Method Room Air Room Air Oxygen Flow Rate 0 Fraction of Inspired Oxygen 07/29/24 05:00 07/29/24 05:23 07/29/24 06:30 Temperature 99.2 F Pulse Rate 69 75 Respiratory Rate 21 20 Blood Pressure 119/87 Pulse Oximetry 91 95 91 Oxygen Delivery Method Room Air Oxygen Flow Rate 0 2 Fraction of Inspired Oxygen 21 Fraction of Inspired Oxygen 21 SaO2/FiO2 Ratio 442 Oxygen Delivery Method Room Air Oxygen Flow Rate 2 Narrative Exam Narrative: NAD, alert and oriented. Fluent speech. Lungs are clear, normal rate and effort. There are some basilar crackles bilaterally. Heart is regular, no murmur gallop or rub. Abdomen is soft, non distended. Extremities are free of edema. Objective Imaging Echo: Radiologist's impression: The patient was in atrial fibrillation with heart rates between 69-94 bpm during the exam. Previously sinus. The left ventricle is normal in size. Left ventricular ejection fraction is estimated to be 60 +/- 5%. The right ventricle is normal size. Right ventricular systolic function is borderline reduced. There is mild aortic regurgitation. Compared to the prior echo study, there has been no change in the severity of aortic regurgitation. There is mild tricuspid regurgitation. PASP about 26 mmHg Small pericardial effusion predominantly anterior to the free RV wall with some exudates. No obvious echocardiographic evidence of tamponade. New pericardial effusion. There is a small left-sided pleural effusion. New left pleural effusion. Labs 07/29/24 04:15 07/29/24 04:15 Labs: Laboratory Results - last 24 hr 07/29/24 04:15 WBC 7.9 RBC 3.51 L Hgb 10.8 L Hct 31.5 L MCV 89.8 MCH 30.6 MCHC 34.1 RDW 14.7 Plt Count 232 Neut % (Auto) 78.6 H Lymph % (Auto) 9.9 L Hood % (Auto) 10.3 Eos % (Auto) 0.9 L Baso % (Auto) 0.3 Neut # (Auto) 6200 Lymph # (Auto) 800 L Hood # (Auto) 800 Eos # (Auto) 100 Baso # (Auto) 0 Sodium 120 L Potassium 4.2 Chloride 92 L Carbon Dioxide 23 BUN 18 H Creatinine 0.68 Estimated GFR > 60 BUN/Creatinine Ratio 26.5 H Glucose 104 H Calcium 8.5 PFSH Medical History Rash Irritable bowel disease Elevated liver function tests Chronic lower back pain Transaminitis Chronic atrial fibrillation Lichen sclerosus Anticoagulated on Coumadin Fractures (~1999) Chronic back pain (~2001) Rosacea (~2012) Herpes (~2013) Chicken pox Tinnitus Hypertension (~2003) Atrial fibrillation (~2013) Surgical History Anesthesia Surgical procedure planned History of cardioversion (~08/2015) Family History Father Hypertension Colon cancer Mother Age: 96 A-fib Heart disease Stroke Breast cancer Social History marital status: unknown household members: family occupational status: employed Smoking Status: Current every day smoker alcohol intake: current substance use type: does not use Assessment & Plan Assessment & Plan narrative: Acute diastolic congestive heart failure as evidenced by pleural effusions peripheral edema elevated BNP and x-ray findings consistent pulmonary edema than with bilateral pneumonia * Lasix 20 mg IV q.12 * Discontinue losartan due to hyponatremia and it is not indicated in diastolic heart failure * Possibly secondary to NSAID effect on afferent arteriole with reduced free water balance Suspected community-acquired pneumonia with bronchitis * Continue community-acquired pathway ceftriaxone and doxycycline * Low-dose prednisolone and bronchodilators Hypervolemic hyponatremia. Continue diuresis. Urine Na. Chronic atrial fibrillation: * Continue with home metoprolol and Eliquis, rate controlled at this time. Weakness: PT eval DVT prophylaxis covered with anticoagulation Time-Based Coding :: [TOTAL MINUTES] spent with patient and on the chart (including review of chart, obtaining history, exam, reviewing outside data, placing orders, documenting exam and treatment plan, and counseling patient) on [DATE]. Quality VTE Deep Vein Thrombosis/Pulmonary Embolism Present on Admission: No
[2024-07-29] MEDS: BENZONATATE 100 MG CAPSULE 200 MG PO (08:01)
[2024-07-29] MEDS: polyethylene glycoL 3350 17 GM POWD.PACK PO (08:01)
[2024-07-29] MEDS: OXYCODONE 5 MG/5 ML ORAL SOLUTION PO (08:02)
[2024-07-29] MEDS: OXcarbazepine 150 MG TABLET 300 MG PO ×2 (08:02→21:27)
[2024-07-29] MEDS: guaiFENesin Solution 100 MG/5 ML UDC PO (08:02)
[2024-07-29] MEDS: APIXABAN 5 MG TABLET PO ×2 (08:03→21:27)
[2024-07-29] MEDS: SODIUM CHLORIDE 0.9% FLUSH 10 ML IV ×2 (08:03→22:00)
[2024-07-29] MEDS: FUROSEMIDE 20 MG/2 ML VIAL IV (08:03)
[2024-07-29] MEDS: DOXYCYCLINE HYCLATE 100 MG TABLET PO ×2 (08:03→21:27)
[2024-07-29] MEDS: carvediloL 3.125 MG TABLET PO ×2 (08:03→21:28)
[2024-07-29] MEDS: LOSARTAN 50 MG TABLET PO (08:33)
--- NOTE | 2024-07-29 09:06 | CM.DANOTE ---
Initial DCP Assessment Visit Note Reviewed EMR and team rounds for pt's status and updates. Went to meet with pt to introduce self and role, however pt was receiving personal care at the time. Pt lives independently at baseline in her own home with family here in [place]. Her son is at bedside, and will transport her home once she's medically cleared for d/c. Payor: [facility] PCP: Dr. Lucas Herrera Pt is a 74 year-old F with a hx of Afib on Eliquies, who presented to the ED with c/o worsening SOB w/chest discomfort since late afternoon yesterday. Chest x-ray in the ED showed bilateral pneumonia and pleural effusions. She was started on IV ABO's and diuretics, and admitted to the floor for further tx and monitoring. DCP will continue to monitor for final d/c assistance and resource needs. Discharge Planning/Care Management CM Discharge Assessment Start: 07/28/24 03:37 Freq: Status: Active Protocol: Document 07/29/24 09:01 DPL (Rec: 07/29/24 09:06 DPL [id number]) Discharge Planning Assessment Assigned Discharge MUKUND Zaman Systematic Theology Professor Advance Directives? Yes Advance Directives Yes on File History Provided By Medical Record Has Patient been No admitted in last 30 days? Prior Living House Arrangements Household Members family Type of Drives own vehicle transporation used prior to admit Independent with ADL Yes 's Is patient alert and Yes oriented? Caregiver for No Another Comment No identified d/c needs at this time. Barriers to No Discharge Discharge Plan Home Referrals Initiated None needed Whiteboard Updated Yes in Patient Room with name and ext. # of Cardiovascular Radiologic Technologist Review Status In Process Please Provide Date 07/29/24 Initial DC Assessment Was Performed
[2024-07-29] MEDS: URSODIOL 500 MG 500 EACH PO ×2 (09:50→19:30)
[2024-07-29 16:04] LABS: Sodium Urine Random 16 mmol/L (30-90)
--- NOTE | 2024-07-29 16:49 | PT.IIE ---
Surgical History (Last Reviewed 07/29/24 @ 07:46 by Todd Blas MD) Anesthesia History of cardioversion (~08/2015) Surgical procedure planned Medical History (Last Reviewed 07/29/24 @ 07:46 by Todd Blas MD) Anticoagulated on Coumadin Atrial fibrillation (~2013) Chicken pox Chronic atrial fibrillation Chronic back pain (~2001) Chronic lower back pain Elevated liver function tests Fractures (~1999) Herpes (~2013) Hypertension (~2003) Irritable bowel disease Lichen sclerosus Rash Rosacea (~2012) Tinnitus Transaminitis Physical Therapy Inpatient Evaluation/Re-Eval M1 PT/OT-IP Prior Functional Status Start: 07/29/24 17:00 Freq: NEEDED Status: Active Protocol: Document 07/29/24 16:49 DLM (Rec: 07/29/24 17:19 DLM Desktop) Medical Review Prior Functional Status Medical History Yes Reviewed Diet/Fluid Regular Consistency Communication WFL Mobility and Gait Independent without device, has recently been using a 4WW as needed to manage her pelvic pain since a fall with fx. She is active at baseline Activities of Daily Independent. She has recently gotten a shower seat and Living and IADL's a bedside commode. She keeps the bedside commode right next to her bed for urgent urination needs. She drives. 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 Social History Household Members family Living Arrangements House Number of Floors ( One Floor Floors) Number of Stairs To one step to enter Enter/Railing? 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 History Comment She reports living in a small house alone that is next to her Son's house on the same property. M2 PT-IP Current Condition Start: 07/29/24 17:00 Freq: NEEDED Status: Active Protocol: Document 07/29/24 16:49 DLM (Rec: 07/29/24 17:19 DLM Desktop) Physical Therapy Current Condition Current Condition Evaluation Date 07/29/24 Treatment Diagnosis PNA, CHF, impaired gait Onset Date 07/28/24 M3 PT-IP Subjective Start: 07/29/24 17:00 Freq: NEEDED Status: Active Protocol: Document 07/29/24 16:49 DLM (Rec: 07/29/24 17:19 DLM Desktop) Subjective Physical Therapy Visit Type Type Initial Evaluation Visit Start Time 16:00 Visit Stop Time 16:49 Notes 49 minutes Number of MANAGER SUMMER Visits 0 Physical Therapy Visit Comments Patient Comments She reports chest pain with coughing, unable to lie flat due to chest pain and difficulty breathing Patient Goals She wants to return home at discharge M4 PT-IP Mobility and Gait Start: 07/29/24 17:00 Freq: NEEDED Status: Active Protocol: Document 07/29/24 16:49 DLM (Rec: 07/29/24 17:19 DLM Desktop) PT-Bed Mobility Assessment Supine to Sit Supine to Sit Minimal Assistance,Head of Bed Elevated,Bedrails Sit to Supine Sit to Supine Moderate Assistance,Bedrails Scooting Scooting to Edge of Minimal Assistance Bed PT-Transfer Assessment Sit to and From Stand Sit to and from Standby Assistance Stand Equipment Transfer Assistive Gait Belt,Front Wheeled Walker Device Transfers Transfer Destination Bed,Toilet Transfer Technique Stand Step Pivot Transfer Ability Level of Assist Contact Guard Assistance,Minimal Assistance,Use of Upper Extremities Gait Assessment Gait Gait Assistance Contact Guard Assist,Minimum Assistance Required: Distance (Feet) 60 Assistive Devices Assistive Device Gait Belt,Front Wheeled Walker Gait Deviations General Gait Pattern Decreased Stride Length,Decreased Feet Clearance Factors Limiting Gait Function Factors Limiting Decreased Activity Tolerance,Incoordination,Poor Gait Function Balance Comments Gait Comments she has shuffling gait pattern with slow pace this visit, she can improve her step length with verbal cues but it is hard for her to maintain the change, she needs multiple standing rest breaks for gait with shortness of breath and fatigue, pt ambulated to the toilet then ambulated in the jaimes this visit Stair Climbing Assessment Comments Stair Climbing not assessed this visit Comments PT-Balance Assessment Sitting Balance and Reactions Static Sitting Good Balance Ability Dynamic Sitting Good Balance Ability Standing Balance and Reactions Static Standing Fair Balance Ability Dynamic Standing Fair Balance Ability Device Used FWW M5 PT-IP Objective Assessments Start: 07/29/24 17:00 Freq: NEEDED Status: Active Protocol: Document 07/29/24 16:49 DLM (Rec: 07/29/24 17:19 DLM Desktop) Orientation Orientation/Cognition Level of Alertness Alert Orientation Name,Age,Birthday,Month,Date,Year,Day of Week,Place, Situation Language Function No Deficits Noted Ability Safety Awareness Decreased Safety Awareness Memory Description No Deficits Noted Comments she is able to follow verbal instructions Gross Range of Motion Upper Extremity ROM Assessment Within Functional Limits Lower Extremity ROM Assessment Within Functional Limits Impairments pain with abduction of LE's due to pelvic area pain related to fx Strength Upper Extremity Strength Assessment Within Functional Limits Lower Extremity Strength Assessment Within Functional Limits Comments Strength Comments pelvic pain limits some functional LE movements such as hip abduction on right Coordination Assessment Gross Coordination Gross Coordination Impaired Assessment Coordination mild decrease in functional coordination during Comments mobility Sensation Assessment Sensation Gross Sensation Right LE Impaired,Left LE Impaired Comments Sensation Comments she reports hx of neuropathy in feet with intermittent burning pain, no numbness reported, no burning at the time of this exam Muscle Tone Muscle Tone WNL Yes M6 PT-IP Treatment Start: 07/29/24 17:00 Freq: NEEDED Status: Active Protocol: Document 07/29/24 16:49 DLM (Rec: 07/29/24 17:19 DLM Desktop) Physical Therapy Treatment Education Education Provided Safety Other Treatments Other Treatment pt up to toilet to urinate also this visit, pt wet and Performed needed change of gown and depends M7 PT-IP Assessment and Plan Start: 07/29/24 17:00 Freq: NEEDED Status: Active Protocol: Document 07/29/24 16:49 DLM (Rec: 07/29/24 17:19 DLM Desktop) PT Summary Assessment and Plan Potential Rehabilitation Good Potential Status of Condition Evolving at Evaluation Summary Impairments Pain,Strength,Balance,Bed Mobility,Transfers,Gait, Activity Tolerance Assessment Summary Morelia is alert and shows good participation in Physical Therapy this visit. She is on room air with an intermittent cough and complaints of chest pain when she coughs. She is independent and active at baseline but due to a recent pelvic fracture she has been using a 4WW more at home. This visit she was able to ambulate with the FWW. She has a significantly altered gait pattern with a shuffling gait pattern, shortness of breath and fatigue that all limit her functional distances and speed. She need extra help to get into bed because she can not lift her LE's into bed due to her pelvic pain. She is not safe to discharge home alone at this time. She will need 24/7 assist available to discharge home with home health therapy. If her family can not provide extra assistance at home then she will need SNF rehab to assist with her functional recovery. Goals Bed Mobility Goal Independent Transfer Goal Independent,Front Wheeled Walker,Four Wheeled Walker Gait Goal Independent,Front Wheel Walker,Four Wheel Walker Gait Distance 150 feet Other Goals up/down one step with FWW/4WW and SBA Frequency of Treatment Frequency Of Once a Day Treatment Treatment Plan Physical Therapy Bed Mobility Training,Transfer Training,Gait Training, Treatment Plan Therapeutic Exercise,Balance Retraining,Discharge Planning,Neuromuscular Re-ed,Coordination Retraining Precautions Other Precautions recent pelvic fx per patient with groin pain Weight Bearing Status Weight Bearing Weight Bear as Tolerated Status Recommendations To Nursing Amount of Assist 1 Person Assist Needed Discharge Recommendations PT Discharge Home with 24/7 Assist Available,Home Health Recommendations Other Discharge If she does not have 24/7 assist at home then recommend Recommendations SNF rehab Transportation Needs Private Vehicle at Discharge - PT assist 1
[2024-07-29] MEDS: OXYCODONE IR 5 MG TABLET PO (17:14)
[2024-07-29 17:54] LABS: BUN Creatinine Ratio 19.5 (6-22); Blood Urea Nitrogen 15 mg/dL (7-17); Calcium 8.5 mg/dL (8.4-10.2); Carbon Dioxide 25 mmol/L (22-32); Chloride 92 mmol/L (98-107); Estimated Glomerular Filt Rate > 60 mL/min (>60); Glucose 109 mg/dL (70-99); HEMOLYSIS < 15 (0-50); Potassium 4.2 mmol/L (3.4-5.1); Sodium 123 mmol/L (137-145)
[2024-07-29] MEDS: cefTRIAXone 1,000 MG in SODIUM CHLORIDE 0.9% 100 ML 200 MG IV (21:26)
[2024-07-29] MEDS: SENNOSIDES 8.6 MG TABLET 17.2 MG PO (21:27)
[2024-07-29] MEDS: FUROSEMIDE 20 MG/2 ML VIAL 40 MG IV (21:27)
[2024-07-30] VITALS (23 sets, daily range): BP systolic 115–144; BP diastolic 67–83; PULSE 72–89; RESP 16–34; TEMP 36.4–37; O2SAT 89–98
[2024-07-30] MEDS: PANTOPRAZOLE DR 20 MG TABLET PO (07:04)
[2024-07-30] MEDS: URSODIOL 500 MG 500 EACH PO ×2 (07:07→17:04)
--- NOTE | 2024-07-30 07:36 | P.PN_ITS ---
Subjective Subjective Interval history: S: Breathing feels better. Sodium is up. She wants to go home, feels better. She was coughing up some colored phlegm. Exam Vital Signs (past 8 hours): - 07/30/24 00:00 07/30/24 00:00 07/30/24 00:33 Temperature 97.6 F Pulse Rate 80 76 88 Respiratory Rate 23 29 H 34 H Blood Pressure 115/67 Pulse Oximetry 91 89 L 90 L Oxygen Flow Rate 0 07/30/24 00:40 07/30/24 00:40 07/30/24 01:00 Temperature Pulse Rate 86 77 Respiratory Rate 26 H 33 H Blood Pressure 115/67 Pulse Oximetry 90 L 89 L Oxygen Flow Rate 07/30/24 01:30 07/30/24 02:00 07/30/24 02:30 Temperature Pulse Rate 72 72 72 Respiratory Rate 32 H 27 H 34 H Blood Pressure Pulse Oximetry 91 91 90 L Oxygen Flow Rate 07/30/24 03:00 07/30/24 03:30 07/30/24 04:00 Temperature 98.6 F Pulse Rate 74 72 76 Respiratory Rate 31 H 24 24 Blood Pressure 144/83 H Pulse Oximetry 90 L 91 93 Oxygen Flow Rate 0 07/30/24 04:00 07/30/24 04:30 07/30/24 04:37 Temperature Pulse Rate 73 76 Respiratory Rate 22 31 H Blood Pressure 144/83 H Pulse Oximetry 91 91 Oxygen Flow Rate 07/30/24 04:37 Temperature Pulse Rate 76 Respiratory Rate 27 H Blood Pressure Pulse Oximetry 92 Oxygen Flow Rate Fraction of Inspired Oxygen 21 SaO2/FiO2 Ratio 442 Oxygen Delivery Method Room Air Oxygen Flow Rate 0 Narrative Exam Narrative: NAD, alert and oriented. Fluent speech. Lungs are clear, normal rate and effort. Heart is regular, no murmur gallop or rub. Abdomen is soft, non distended. Extremities are free of edema. Objective Labs 07/29/24 04:15 07/29/24 17:29 Labs: Laboratory Results - last 24 hr 07/29/24 07/29/24 14:20 17:29 Sodium 123 L Potassium 4.2 Chloride 92 L Carbon Dioxide 25 BUN 15 Creatinine 0.77 Estimated GFR > 60 BUN/Creatinine Ratio 19.5 Glucose 109 H Calcium 8.5 Ur Random Sodium 16 L [facility] Medical History Rash Irritable bowel disease Elevated liver function tests Chronic lower back pain Transaminitis Chronic atrial fibrillation Lichen sclerosus Anticoagulated on Coumadin Fractures (~1999) Chronic back pain (~2001) Rosacea (~2012) Herpes (~2013) Chicken pox Tinnitus Hypertension (~2003) Atrial fibrillation (~2013) Surgical History Anesthesia Surgical procedure planned History of cardioversion (~08/2015) Family History Father Hypertension Colon cancer Mother Age: 96 A-fib Heart disease Stroke Breast cancer Social History marital status: unknown household members: family occupational status: employed Smoking Status: Current every day smoker alcohol intake: current substance use type: does not use Assessment & Plan Assessment & Plan narrative: 1. Acute diastolic congestive heart failure as evidenced by pleural effusions peripheral edema elevated BNP and x-ray findings consistent pulmonary edema than with bilateral pneumonia * Lasix 20 mg IV q.12 * Discontinue losartan due to hyponatremia and it is not indicated in diastolic heart failure * Possibly secondary to NSAID effect on afferent arteriole with reduced free water balanceSuspected community-acquired pneumonia with bronchitis * Continue community-acquired pathway ceftriaxone and doxycycline * Low-dose prednisolone and bronchodilators 2. Hypervolemic hyponatremia. 3. Continue diuresis. * Urine Na was low. 4. Chronic atrial fibrillation: * Continue with home metoprolol and Eliquis, rate controlled at this time. 5. Weakness: * PT eval PLAN: -Continue Lasix and 14:00 BMP. DVT prophylaxis covered with anticoagulation Time-Based Coding :: [TOTAL MINUTES] spent with patient and on the chart (including review of chart, obtaining history, exam, reviewing outside data, placing orders, documenting exam and treatment plan, and counseling patient) on [DATE]. Quality VTE Deep Vein Thrombosis/Pulmonary Embolism Present on Admission: No
[2024-07-30] MEDS: APIXABAN 5 MG TABLET PO ×2 (08:40→20:28)
[2024-07-30] MEDS: LOSARTAN 50 MG TABLET PO (08:40)
[2024-07-30] MEDS: DOXYCYCLINE HYCLATE 100 MG TABLET PO ×2 (08:40→20:27)
[2024-07-30] MEDS: OXcarbazepine 150 MG TABLET 300 MG PO ×2 (08:40→20:29)
[2024-07-30] MEDS: polyethylene glycoL 3350 17 GM POWD.PACK PO (08:41)
[2024-07-30] MEDS: FUROSEMIDE 20 MG/2 ML VIAL 40 MG IV (08:41)
[2024-07-30] MEDS: carvediloL 3.125 MG TABLET PO ×2 (08:41→20:29)
[2024-07-30] MEDS: ALBUTEROL/IPRATROPIUM 3 ML AMPUL INH ×2 (10:17→18:28)
[2024-07-30 14:31] LABS: BUN Creatinine Ratio 28.1 (6-22); Blood Urea Nitrogen 18 mg/dL (7-17); Calcium 8.8 mg/dL (8.4-10.2); Carbon Dioxide 25 mmol/L (22-32); Chloride 91 mmol/L (98-107); Estimated Glomerular Filt Rate > 60 mL/min (>60); Glucose 118 mg/dL (70-99); HEMOLYSIS < 15 (0-50); Potassium 3.8 mmol/L (3.4-5.1); Sodium 125 mmol/L (137-145)
--- NOTE | 2024-07-30 16:38 | PT-IP ANOTE ---
checked on pt and pt refused PT. stated that she had been moving around a lot already and does not want to move again.
[2024-07-30 18:23] LABS: Blood Urea Nitrogen 18 mg/dL (7-17); Carbon Dioxide 24 mmol/L (22-32); Chloride 90 mmol/L (98-107); Estimated Glomerular Filt Rate > 60 mL/min (>60); Glucose 139 mg/dL (70-99); HEMOLYSIS < 15 (0-50); Potassium 3.9 mmol/L (3.4-5.1); Sodium 123 mmol/L (137-145)
[2024-07-30] MEDS: ACETAMINOPHEN 325 MG TABLET 650 MG PO (20:27)
[2024-07-30] MEDS: SENNOSIDES 8.6 MG TABLET 17.2 MG PO (20:29)
[2024-07-30] MEDS: cefTRIAXone 1,000 MG in SODIUM CHLORIDE 0.9% 100 ML 200 MG IV (20:31)
[2024-07-30] MEDS: SODIUM CHLORIDE 0.9% FLUSH 10 ML IV (20:32)
[2024-07-31] VITALS (10 sets, daily range): BP systolic 109–137; BP diastolic 72–85; PULSE 73–89; RESP 15–18; TEMP 36.7–36.9; O2SAT 93–96
[2024-07-31] MEDS: OXcarbazepine 150 MG TABLET 300 MG PO (09:06)
[2024-07-31] MEDS: URSODIOL 500 MG 500 EACH PO ×2 (09:06→17:39)
[2024-07-31] MEDS: carvediloL 3.125 MG TABLET PO ×2 (09:06→20:39)
[2024-07-31] MEDS: APIXABAN 5 MG TABLET PO ×2 (09:07→20:39)
[2024-07-31] MEDS: DOXYCYCLINE HYCLATE 100 MG TABLET PO ×2 (09:07→20:39)
[2024-07-31] MEDS: LOSARTAN 50 MG TABLET PO (09:07)
[2024-07-31] MEDS: SODIUM CHLORIDE 0.9% FLUSH 10 ML IV (09:08)
[2024-07-31 09:11] LABS: BUN Creatinine Ratio 28.8 (6-22); Blood Urea Nitrogen 17 mg/dL (7-17); Carbon Dioxide 24 mmol/L (22-32); Chloride 91 mmol/L (98-107); Estimated Glomerular Filt Rate > 60 mL/min (>60); Glucose 109 mg/dL (70-99); HEMOLYSIS < 15 (0-50); Potassium 4.1 mmol/L (3.4-5.1); Sodium 124 mmol/L (137-145)
[2024-07-31] MEDS: SODIUM CHLORIDE 1,000 MG TABLET 1000 MG PO (11:28)
[2024-07-31] MEDS: SODIUM CHLORIDE 0.9% 1,000 ML 125 ML IV ×2 (11:28→20:35)
[2024-07-31] MEDS: ACETAMINOPHEN 325 MG TABLET 650 MG PO ×2 (13:55→20:37)
--- NOTE | 2024-07-31 13:58 | EKG_ITS ---
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
--- NOTE | 2024-07-31 14:09 | PM.EVENT ---
Event Note Date Patient Seen: 07/31/24 Time Patient Seen: 14:09 Event Note (Rapid Response, Code, or fall): She had chest pain, improved in a short time. ECG: AF without acute changes. PLAN: -Serial troponins. -telemetry. -Monitor. Mickey Blas
--- NOTE | 2024-07-31 14:37 | P.PN_ITS ---
Subjective Subjective Interval history: S: Overall she feels better. Her sodium remains low at 124. This is not improved despite diuresis. We will start with saline today and salt tablets. She feels that this may relate to her oxy carbamazepine. She restarted this after about 10 years of being off it. This was about 2 months ago. She notes that side effects include lower sodium. Her urine sodium was 16. Exam Vital Signs (past 8 hours): - 08/01/24 08:00 Temperature 98.0 F Pulse Rate 86 Respiratory Rate 17 Blood Pressure 139/90 Pulse Oximetry 95 Oxygen Flow Rate 0 Fraction of Inspired Oxygen 21 SaO2/FiO2 Ratio 438 Oxygen Delivery Method Room Air Oxygen Flow Rate 0 Narrative Exam Narrative: NAD, alert and oriented. Fluent speech. Lungs are clear, normal rate and effort. Heart is regular, no murmur gallop or rub. Abdomen is soft, non distended. Extremities are free of edema. Objective Labs 07/29/24 04:15 08/01/24 08:59 Labs: Laboratory Results - last 24 hr 07/31/24 07/31/24 07/31/24 14:11 15:00 19:30 Sodium 124 L 125 L Potassium 3.9 4.2 Chloride 94 L 95 L Carbon Dioxide 24 24 BUN 17 15 Creatinine 0.74 0.60 Estimated GFR > 60 > 60 BUN/Creatinine Ratio 23.0 H 25.0 H Glucose 110 H 111 H Calcium 8.6 8.7 Troponin I < 0.012 < 0.012 07/31/24 08/01/24 22:57 08:59 Sodium 126 L 131 L Potassium 4.2 3.9 Chloride 98 101 Carbon Dioxide 22 20 L BUN 15 10 Creatinine 0.57 0.58 Estimated GFR > 60 > 60 BUN/Creatinine Ratio 26.3 H 17.2 Glucose 97 160 H Calcium 8.7 8.8 Troponin I [facility] Medical History Rash Irritable bowel disease Elevated liver function tests Chronic lower back pain Transaminitis Chronic atrial fibrillation Lichen sclerosus Anticoagulated on Coumadin Fractures (~1999) Chronic back pain (~2001) Rosacea (~2012) Herpes (~2013) Chicken pox Tinnitus Hypertension (~2003) Atrial fibrillation (~2013) Surgical History Anesthesia Surgical procedure planned History of cardioversion (~08/2015) Family History Father Hypertension Colon cancer Mother Age: 96 A-fib Heart disease Stroke Breast cancer Social History marital status: unknown household members: family occupational status: employed Smoking Status: Current every day smoker alcohol intake: current substance use type: does not use Assessment & Plan Assessment & Plan narrative: 1. Hyponatremia, active. * Did not improve with the aggressive diuresis. Urine sodium was low. Suspicion is low solute instead of hypervolemic hyponatremia. * Attempts salt tablets and saline over the next 12-24 hours. Stopped diuretic. 2. Suspected community-acquired pneumonia, improved. * Continue Abx. 3. Chronic atrial fibrillation: * Continue with home metoprolol and Eliquis, rate controlled at this time. 4. Weakness, improved. * PT eval PLAN: -continue antibiotics -trial of salt tablets and saline at 100 mL/hour. Time-Based Coding :: [TOTAL MINUTES] spent with patient and on the chart (including review of chart, obtaining history, exam, reviewing outside data, placing orders, documenting exam and treatment plan, and counseling patient) on [DATE]. Quality VTE Deep Vein Thrombosis/Pulmonary Embolism Present on Admission: No
[2024-07-31 14:40] LABS: Troponin I < 0.012 ng/mL (0.01-0.034)
[2024-07-31 15:23] LABS: Blood Urea Nitrogen 17 mg/dL (7-17); Calcium 8.6 mg/dL (8.4-10.2); Carbon Dioxide 24 mmol/L (22-32); Chloride 94 mmol/L (98-107); Estimated Glomerular Filt Rate > 60 mL/min (>60); Glucose 110 mg/dL (70-99); HEMOLYSIS < 15 (0-50); Potassium 3.9 mmol/L (3.4-5.1); Sodium 124 mmol/L (137-145)
--- NOTE | 2024-07-31 15:38 | PT-IP ANOTE ---
checked on pt and pt refused PT. stated that there is just a lot of things going on at this time and does not want to get. stated that she has been walking to the toilet by herself and has also walked down in the hallway with nursing staff. informed nurse and confirmed that pt walked with them.
[2024-07-31 19:52] LABS: Blood Urea Nitrogen 15 mg/dL (7-17); Calcium 8.7 mg/dL (8.4-10.2); Carbon Dioxide 24 mmol/L (22-32); Chloride 95 mmol/L (98-107); Estimated Glomerular Filt Rate > 60 mL/min (>60); Glucose 111 mg/dL (70-99); HEMOLYSIS < 15 (0-50); Potassium 4.2 mmol/L (3.4-5.1); Sodium 125 mmol/L (137-145)
[2024-07-31 20:05] LABS: Troponin I < 0.012 ng/mL (0.01-0.034)
[2024-07-31] MEDS: cefTRIAXone 1,000 MG in SODIUM CHLORIDE 0.9% 100 ML 200 MG IV (20:37)
[2024-07-31] MEDS: OXcarbazepine 150 MG TABLET PO (20:39)
[2024-07-31 23:20] LABS: BUN Creatinine Ratio 26.3 (6-22); Blood Urea Nitrogen 15 mg/dL (7-17); Calcium 8.7 mg/dL (8.4-10.2); Carbon Dioxide 22 mmol/L (22-32); Chloride 98 mmol/L (98-107); Estimated Glomerular Filt Rate > 60 mL/min (>60); Glucose 97 mg/dL (70-99); HEMOLYSIS < 15 (0-50); Potassium 4.2 mmol/L (3.4-5.1); Sodium 126 mmol/L (137-145)
[2024-08-01] VITALS: BP 149/83; PULSE 74; RESP 18; O2SAT 100
[2024-08-01 00:11] VITALS: O2SAT 96
[2024-08-01 04:43] VITALS: BP 147/95; PULSE 94; O2SAT 97
[2024-08-01] MEDS: ACETAMINOPHEN 325 MG TABLET 650 MG PO (04:46)
[2024-08-01] MEDS: SODIUM CHLORIDE 0.9% 1,000 ML 125 ML IV (04:46)
[2024-08-01 05:00] VITALS: O2SAT 97
[2024-08-01] MEDS: PANTOPRAZOLE DR 20 MG TABLET PO (05:55)
[2024-08-01 08:00] VITALS: BP 139/90; PULSE 86; RESP 17; TEMP 36.7; O2SAT 95
[2024-08-01] MEDS: DOXYCYCLINE HYCLATE 100 MG TABLET PO (08:48)
[2024-08-01] MEDS: URSODIOL 500 MG 500 EACH PO (08:48)
[2024-08-01] MEDS: carvediloL 3.125 MG TABLET PO (08:48)
[2024-08-01] MEDS: APIXABAN 5 MG TABLET PO (08:48)
[2024-08-01] MEDS: OXcarbazepine 150 MG TABLET PO (08:49)
[2024-08-01] MEDS: SODIUM CHLORIDE 1,000 MG TABLET 1000 MG PO (08:49)
[2024-08-01] MEDS: LOSARTAN 50 MG TABLET PO (08:49)
[2024-08-01] MEDS: SODIUM CHLORIDE 0.9% FLUSH 10 ML IV (08:50)
[2024-08-01 09:17] LABS: BUN Creatinine Ratio 17.2 (6-22); Blood Urea Nitrogen 10 mg/dL (7-17); Calcium 8.8 mg/dL (8.4-10.2); Carbon Dioxide 20 mmol/L (22-32); Chloride 101 mmol/L (98-107); Estimated Glomerular Filt Rate > 60 mL/min (>60); Glucose 160 mg/dL (70-99); HEMOLYSIS < 15 (0-50); Potassium 3.9 mmol/L (3.4-5.1); Sodium 131 mmol/L (137-145)
--- NOTE | 2024-08-01 11:03 | PM.DS.1 ---
History of Present Illness History of Present Illness Chief complaint: shoulder pain Narrative: From H&P: The pt is a 74 yo with a hx of a-fib on Eliuqis who presents to the ER with a hx of cough, Rt sided chest pain worse with coughing but there has been no sputum production. She denies any fevers, chills, diaphoresis, pain is not worse with activity, or position. Finding the emergency department significant for bilateral lower lobe chest x-ray findings interpreted as infiltrate White count of 8.8 with 90% neutrophils which is increased from 6.7 and 70% neutrophils in May Sodium is 122 which is also increased from baseline of 137 in May Troponin is negative procalcitonin is negative pro BNP is 1600 Discharge Providers Provider Date of admission: 07/30/24 10:17 Discharge Date: 08/01/24 Primary care physician: Lucas Herrera DO Consults: 07/29/24 10:17 Consult to Physical Therapy Evaluate & Treat Comment: Physician Instructions: Evaluate and Treat Discharge provider: Todd Blas MD Summary Hospital Course Discharge Diagnosis: 1. Hyponatremia, active. 2. Suspected community-acquired pneumonia, improved. 3. Chronic atrial fibrillation: 4. Weakness, improved. 5. Dysthymia, stable. Hospital Course: She was admitted with possible pneumonia and concern for diastolic heart failure with hyponatremia. She was diuresed and given antibiotics. Her sodium improved marginally. Her urine sodium was low. Ultimately, diuretics were stopped and she was given a salt tablet and and a sodium chloride infusion. This did improve her sodium consistent with a solid deficiency. She notes that she had recently started oxcarbazepine after being off for about 8 years. She had essentially asked an emergency doctor to start this for her dysthymia. She believes that this is 2 months ago when precedes her hyponatremia and also believes that this has some role in the development of her low-sodium. She asked that this be tapered off. Antibiotics were continued while she was in the hospital and she was stable for discharge on August 01. She will continue on oral antibiotics for several more days and follow up with primary care. She will complete a taper off from her oxcarbazepine over the next 10 days. Status at Discharge Cognitive/behavioral status at discharge: oriented Functional status at discharge: independent ambulation Overall status at discharge: patient is back to baseline Time Spent with Patient Time spent: Greater than 30 minutes Exam Vital Signs (past 8 hours): - 08/01/24 04:43 08/01/24 05:00 08/01/24 08:00 Temperature 98.0 F Pulse Rate 94 H 86 Respiratory Rate 17 Blood Pressure 147/95 H 139/90 Pulse Oximetry 97 97 95 Oxygen Delivery Method Room Air Oxygen Flow Rate 0 Fraction of Inspired Oxygen 21 SaO2/FiO2 Ratio 438 Oxygen Delivery Method Room Air Oxygen Flow Rate 0 Narrative Exam Narrative: NAD, alert and oriented. Fluent speech. Lungs are clear, normal rate and effort. Heart is regular, no murmur gallop or rub. Abdomen is soft, non distended. Extremities are free of edema. Objective ECG Impression: Atrial fibrillation with a competing junctional pacemaker Imaging Chest x-ray: Radiologist's impression: Suspect right lower lung and left perihilar opacities which may be infectious/inflammatory. Low lung volumes. Possible trace effusions. Consider future imaging surveillance to assess for resolution. Cardiomegaly. Aortic calcifications. Degenerative osseous changes. Echo: Radiologist's impression: Interpretation Summary The patient was in atrial fibrillation with heart rates between 69-94 bpm during the exam. Previously sinus. The left ventricle is normal in size. Left ventricular ejection fraction is estimated to be 60 +/- 5%. The right ventricle is normal size. Right ventricular systolic function is borderline reduced. There is mild aortic regurgitation. Compared to the prior echo study, there has been no change in the severity of aortic regurgitation. There is mild tricuspid regurgitation. PASP about 26 mmHg Small pericardial effusion predominantly anterior to the free RV wall with some exudates. No obvious echocardiographic evidence of tamponade. New pericardial effusion. There is a small left-sided pleural effusion. New left pleural effusion. Labs 07/29/24 04:15 08/01/24 08:59 Labs: Laboratory Results - last 24 hr 07/31/24 07/31/24 07/31/24 14:11 15:00 19:30 Sodium 124 L 125 L Potassium 3.9 4.2 Chloride 94 L 95 L Carbon Dioxide 24 24 BUN 17 15 Creatinine 0.74 0.60 Estimated GFR > 60 > 60 BUN/Creatinine Ratio 23.0 H 25.0 H Glucose 110 H 111 H Calcium 8.6 8.7 Troponin I < 0.012 < 0.012 07/31/24 08/01/24 22:57 08:59 Sodium 126 L 131 L Potassium 4.2 3.9 Chloride 98 101 Carbon Dioxide 22 20 L BUN 15 10 Creatinine 0.57 0.58 Estimated GFR > 60 > 60 BUN/Creatinine Ratio 26.3 H 17.2 Glucose 97 160 H Calcium 8.7 8.8 Troponin I [facility] Medical History Rash Irritable bowel disease Elevated liver function tests Chronic lower back pain Transaminitis Chronic atrial fibrillation Lichen sclerosus Anticoagulated on Coumadin Fractures (~1999) Chronic back pain (~2001) Rosacea (~2012) Herpes (~2013) Chicken pox Tinnitus Hypertension (~2003) Atrial fibrillation (~2013) Surgical History Anesthesia Surgical procedure planned History of cardioversion (~08/2015) Family History Father Hypertension Colon cancer Mother Age: 96 A-fib Heart disease Stroke Breast cancer Social History marital status: unknown household members: family occupational status: employed Smoking Status: Current every day smoker alcohol intake: current substance use type: does not use Discharge Assessment & Plan Assessment and Plan Assessment: 1. Hyponatremia, active. 2. Suspected community-acquired pneumonia, improved. 3. Chronic atrial fibrillation: 4. Weakness, improved. 5. Dysthymia, stable. Plan of Treatment: Discharge home with Doxycycline 100 BID for 5 days and salt tablet 1 g daily for 7 days. Follow up with PCP within a week with a repeat BMP. Discharge Plan Discharge Plan Patient Disposition: Home Provider Discharge Comment: Stable for discharge. Taper oxcarbazepine 150 twice a day for 5 days, 75 twice a day for 5 days then stop. Blood test within 5 days. Discharge orders & Medications Prescriptions: New doxycycline hyclate 100 mg Tablet 100 mg PO BID Qty: 10 0RF sodium chloride 1,000 mg Tablet,Soluble 1,000 mg PO DAILY Qty: 7 0RF Continued losartan 100 mg tablet See Rx Instructions .ROUTE .COMPLEX Qty: 90 3RF Dose Instruction: TAKE 1 TABLET DAILY Rx Instructions: TAKE 1 TABLET DAILY metoprolol succinate 25 mg tablet extended release 24 hr 25 mg PO DAILY Qty: 90 3RF acyclovir 400 mg tablet 400 mg PO 5XD PRN (Reason: outbreak) Qty: 30 6RF clobetasol 0.05 % ointment 1 applic TOP BID Qty: 60 2RF Eliquis 5 mg tablet 5 mg PO BID Qty: 20 0RF oxcarbazepine [Trileptal] 300 mg tablet 300 mg PO BID Qty: 60 5RF ursodiol 500 mg tablet 500 mg PO BID Discontinued celecoxib [Celebrex] 200 mg capsule 200 mg PO BID Qty: 180 1RF Medication counseling provided by Pharmacist: No Follow up/Referrals: Lucas Herrera DO [Primary Care Provider, [facility]] Discharge Health Status Multidrug resistant organism: No MDRO Diet/Activity/Treatments Diet: Regular Visit Report/Discharge Packet Instructions: DI for Hyponatremia Stand Alone Forms: Patient Portal/API Discharge Data Primary Care Provider: Lucas Herrera Quality VTE Deep Vein Thrombosis/Pulmonary Embolism Present on Admission: No
--- NOTE | 2024-08-01 11:59 | CM.DPNOTE ---
DCP note PRODUCT CRAFTSMAN reviewed EMR per provider, cleared to dc home today. per PT notes, pt mobilizing well with nursing staff. PRODUCT CRAFTSMAN met with pt in room. introduced self and role. gave copy of IMM. pt reports she does not need HH, has family supports on her property. complained about timeline for f/u with PCP and cardiology. PRODUCT CRAFTSMAN agreed to updated PCP group that pt would like a soon f/u with PCP (viktor). pt agreed. denied other CM/DCP/PRODUCT CRAFTSMAN needs at this time. denies comm resources (all meals on wheels gives you is crap food anyway i don't need any of that junk i don't have the taste buds for it.) PRODUCT CRAFTSMAN messaged TCM team with updates P: home today with family support and OP f/u recommended. CM team will continue to follow in case any additional DCP needs arise MUKUND [place]
--- NOTE | 2024-08-01 12:55 | PC.NURSE ---
Discharge Note Patient A&O, VSS, RA, no complaints of pain/discomfort. Discharge packet reviewed with patient, all questions/concerns addressed. PIV/TELE discontinued. Patient able to dress self and pack all belongings. Patient taken down via wheelchair to POV.
== END 2024-08-01 12:00 | disposition home or self-care (01) | DRG 193 ==
LOC: ED 07-28 02:20 → AC 07-28 02:30 → ICU 07-28 03:18
PROVIDERS: Hospitalist; Admitting Provider Internal Medicine; Emergency Provider Emergency Medicine; PCP Family Medicine; Visit Provider Internal Medicine
DX: J18.9 Pneumonia, unspecified organism (principal); I50.31 Acute diastolic (congestive) heart failure; I48.20 Chronic atrial fibrillation, unspecified; E87.1 Hypo-osmolality and hyponatremia; J40 Bronchitis, not specified as acute or chronic; R53.1 Weakness; F17.200 Nicotine dependence, unspecified, uncomplicated; F34.1 Dysthymic disorder; I11.0 Hypertensive heart disease with heart failure; Z79.01 Long term (current) use of anticoagulants
CPT/HCPCS: 0241U; 36415; 71045; 80048; 80053; 82550; 83605; 83690; 83735; 83880; 84145; 84300; 84484; 85025; 85610; 85730; 87040; 93005; 93306; 94640; 96365; 96375; 96376; 97162; 97530; 99284; 99406; G0378; J0696; J1171; J1938; J2270; J2405; J7613

== ENCOUNTER → 2024-08-06 08:17 | Outpatient (CLI) | payer MEDICARE, MEDICAID, SELFPAY ==
[2024-07-28 04:08] VITALS: BMI 28.6
[2024-08-06 09:26] LABS: BUN Creatinine Ratio 21.3 (6-22); Blood Urea Nitrogen 13 mg/dL (7-17); Calcium 8.9 mg/dL (8.4-10.2); Carbon Dioxide 24 mmol/L (22-32); Chloride 98 mmol/L (98-107); Estimated Glomerular Filt Rate > 60 mL/min (>60); Glucose 107 mg/dL (70-99); HEMOLYSIS < 15 (0-50); Potassium 3.9 mmol/L (3.4-5.1); Sodium 130 mmol/L (137-145)
== END ==
PROVIDERS: PCP Family Medicine; Referring Provider Family Medicine; Visit Provider Family Medicine
DX: E87.1 Hypo-osmolality and hyponatremia (principal)
CPT/HCPCS: 36415; 80048

== ENCOUNTER 2024-08-08 11:39 | Emergency (ER) | payer MEDICARE, MEDICAID, SELFPAY ==
[2024-07-28 04:08] VITALS: BMI 28.6
[2024-08-08] VITALS (36 sets, daily range): BP systolic 117–152; BP diastolic 74–97; PULSE 83–110; RESP 2–31; TEMP 37.2–37.6; O2SAT 92–96; BMI 27.4
--- NOTE | 2024-08-08 11:55 | DI.RAD.S_ITS ---
PROCEDURE: XR CHEST 1V INDICATIONS: Shortness of breath TECHNIQUE: One view of the chest was acquired. COMPARISON: [facility], CR, XR CHEST 1V, 07/27/2024, 23:35. [facility], CR, XR CHEST 2V, 05/15/2024, 9:26. FINDINGS AND IMPRESSION: [id number] left lower lung opacities likely mixture of airspace disease and effusion. Consider future imaging surveillance to assess for resolution. Cardiomegaly. Degenerative osseous changes. Dictated by: Sam Escobar M.D. on 08/08/2024 at 12:43 Approved by: Sam Escobar M.D. on 08/08/2024 at 12:44
--- NOTE | 2024-08-08 11:55 | EKG_ITS ---
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
[2024-08-08 12:11] LABS: Add Manual Diff / Slide Review NO; Basophils Absolute Auto 100 /uL (0-100); Basophils Percent Auto 0.7 % (0-2); Eosinophils Absolute Auto 100 /uL (0-450); Eosinophils Percent Auto 0.7 % (2-4); Hematocrit 36.2 % (36-46); Hemoglobin 12.4 g/dL (12.0-16.0); Lymphocytes Absolute Auto 1100 /uL (1100-4500); Mean Corpuscular HGB Conc 34.2 % (30-36); Mean Corpuscular Hemoglobin 30.7 PG (26-34); Mean Corpuscular Volume 89.5 fL (80-100); Monocytes Absolute Auto 800 /uL (0-900); Monocytes Percent Auto 7.8 % (3-14); Neutrophils Absolute Auto 8700 /uL (1500-7000); Neutrophils Percent Auto 80.8 % (50-75); Platelet Count 351 X10^3/uL (150-400); Red Blood Cell Count 4.05 X10^6/uL (4.0-5.2); Red Cell Distribution Width 14.6 % (11.6-14.8); White Blood Cell Count 10.8 X10^3/uL (4.5-11.0)
[2024-08-08 12:17] LABS: INR 1.7 (0.9-1.3); Prothrombin Time 18.6 SECONDS (9.4-12.5)
[2024-08-08 12:25] LABS: Alanine Aminotransferase 20 IU/L (<35); Albumin 4.2 g/dL (3.5-5.0); Albumin Globulin Ratio 1.2 (1.0-2.8); Alkaline Phosphatase 134 U/L (38-126); Aspartate Aminotransferase 26 IU/L (14-36); BUN Creatinine Ratio 23.2 (6-22); Bilirubin Total 0.9 mg/dL (0.2-1.3); Blood Urea Nitrogen 13 mg/dL (7-17); Calcium 9.1 mg/dL (8.4-10.2); Carbon Dioxide 25 mmol/L (22-32); Chloride 97 mmol/L (98-107); Estimated Glomerular Filt Rate > 60 mL/min (>60); Globulin 3.5 g/dL (1.7-4.1); Glucose 114 mg/dL (70-99); HEMOLYSIS 15 (0-50); Potassium 3.7 mmol/L (3.4-5.1); Sodium 130 mmol/L (137-145); Total Protein 7.7 g/dL (6.3-8.2)
[2024-08-08 12:26] LABS: Lactate (Lactic Acid) 0.7 mmol/L (0.7-2.1)
[2024-08-08 12:37] LABS: NT-proBNP (BNP-Adult 18+) 1110 pg/mL (<125); Troponin I < 0.012 ng/mL (0.01-0.034)
--- NOTE | 2024-08-08 13:30 | PC.NURSE ---
Pt reports headache that goes down back. Pt reports she was seen recently for similar and was not sent home with pain meds. pt reports ibuprofen helps relieve pain a little bit. Pt is aware she should not take ibuprofen with her current medications/medical hx. Pt states last fall was 4 weeks ago when she fx her pubic bone. Pt states her chest/stomach feels like it is burning. Pt reports she had constipation with morphine usage at recent hospital visit but was able to have a BM after 4 days. Pt reports she feels her feet swelling has come and gone; no swelling noted at this time. Pt reports she has a history of low sodium. Pt reports she feels weak, exhausted, and no appetite. Pt unsure when SOB started. Pt reports walking does not make pain better or worse. Pt states taking a deep breath worsens her pain. Pt is unable to say if her pain is radiating through her chest to her back. Pt believes her oral intake is matching her urine output. Pt thinks the rough gravel at home is making her back worse. GCS 15.
--- NOTE | 2024-08-08 15:51 | ED.SOB ---
HPI - SOB/Dyspnea <Kathya Mcallister MD - Last Filed: 08/10/24 11:16> General Chief Complaint: Shortness of Breath/Dyspnea Stated Complaint: pnemonia Time Seen by Provider: 08/08/24 15:34 Source: patient Mode of arrival: Wheelchair History of Present Illness HPI Narrative: 74-year-old female history of hyponatremia, chronic atrial fibrillation on Eliquis, recently hospitalized for community-acquired pneumonia and discharged on 08/01 here with chest pain, shortness of breath, acute on chronic neck and back pain. Patient reports since she has been home she has been struggling with pain. She has had a persistent dry cough and pain in her neck and back, sometimes shooting across her back and into her neck. She has a burning chest discomfort, worse at night with lying down. She is using a 4 wheeled walker for pelvic fracture and struggling outside her home in the gravel and wood chips. 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 No unilateral leg pain or swelling but has noted some swelling in her bilateral feet. Related Data Home Medications ?Medication ?Instructions ?Recorded ?Confirmed ursodiol 500 mg tablet 500 mg PO BID 08/22/23 08/08/24 Previous Rx's ?Medication ?Instructions ?Recorded losartan 100 mg tablet See Rx Instructions .Route 03/26/24 .COMPLEX #90 tabs metoprolol succinate 25 mg 25 mg PO DAILY #90 tabs 03/26/24 tablet,extended release 24 hr acyclovir 400 mg tablet 400 mg PO 5XD PRN outbreak #30 tabs 03/30/24 clobetasol 0.05 % topical ointment 1 applic topical BID #60 grams 03/30/24 apixaban 5 mg tablet (Eliquis) 5 mg PO BID #20 tabs 07/05/24 oxcarbazepine 300 mg tablet 300 mg PO BID #60 tabs 07/05/24 (Trileptal) doxycycline hyclate 100 mg tablet 100 mg PO BID #10 tabs 08/01/24 sodium chloride 1,000 mg soluble 1,000 mg PO DAILY #7 tabs 08/01/24 tablet Allergies Allergy/AdvReac Type Severity Reaction Status Date / Time No Known Drug Allergies Allergy Verified 08/08/24 11:48 Review of Systems <Kathya Mcallister MD - Last Filed: 08/10/24 11:16> Review of Systems Narrative: Pertinent ROS obtained and negative except as stated in HPI Patient History <Kathya Mcallister MD - Last Filed: 08/10/24 11:16> Medical History Rash Irritable bowel disease Elevated liver function tests Chronic lower back pain Transaminitis Chronic atrial fibrillation Lichen sclerosus Anticoagulated on Coumadin Fractures (~1999) Chronic back pain (~2001) Rosacea (~2012) Herpes (~2013) Chicken pox Tinnitus Hypertension (~2003) Atrial fibrillation (~2013) Surgical History Anesthesia Surgical procedure planned History of cardioversion (~08/2015) Family History Father Hypertension Colon cancer Mother Age: 96 A-fib Heart disease Stroke Breast cancer Social History marital status: unknown household members: family occupational status: employed alcohol intake: current substance use type: does not use alcohol intake frequency: 0-2 drinks per day Exam <Kathya Mcallister MD - Last Filed: 08/10/24 11:16> Initial Vital Signs Initial Vital Signs: Vital Signs Temperature 98.9 F 08/08/24 11:48 Pulse Rate 85 08/08/24 11:48 Respiratory Rate 18 08/08/24 11:48 Blood Pressure 152/86 H 08/08/24 11:48 Pulse Oximetry 96 08/08/24 11:48 Oxygen Delivery Method Room Air 08/08/24 11:48 Constitutional: 74-year-old female sitting in the chair, wrapped in blankets, appears uncomfortable Head: NCAT Cardiovascular: Tachycardic in the 100s, irregularly irregular, no murmur or rub Pulmonary: Crackles in the bases, no respiratory distress Musculoskeletal: No midline CTLS tenderness. Patient localizes pain to the paraspinal muscles in the cervical and thoracic region. There is palpable spasm on exam and patient localizes her pain here Abdominal: soft, non-tender Extremities: No LE edema. No calf pain Skin: warm and dry, no diaphoresis Neurological: Alert and oriented x3 <Joey Chatman DO - Last Filed: 08/09/24 03:10> Initial Vital Signs Initial Vital Signs: Vital Signs Temperature 98.9 F 08/08/24 11:48 Pulse Rate 85 08/08/24 11:48 Respiratory Rate 18 08/08/24 11:48 Blood Pressure 152/86 H 08/08/24 11:48 Pulse Oximetry 96 08/08/24 11:48 Oxygen Delivery Method Room Air 08/08/24 11:48 Course <Kathya Mcallister MD - Last Filed: 08/10/24 11:16> Orders Ordered: Discontinued Medications Al Hydrox/Mg Hydrox/Simethicone (Mag Hydrox/Alum/Simeth 30 Ml Udc) 30 ml PO NOW ONE Stop: 08/08/24 15:59 Last Admin: 08/08/24 16:23 Dose: 30 ml Documented By: YESENIA Diazepam (Diazepam 10 Mg/2 Ml Syringe) 2 mg IV NOW ONE Stop: 08/09/24 03:04 Last Admin: 08/09/24 03:33 Dose: Not Given Documented By: Famotidine (Famotidine 20 Mg/2 Ml Vial) 20 mg IV NOW LACEY Last Admin: 08/08/24 16:25 Dose: 20 mg Documented By: YESENIA Lidocaine (Lidocaine 5% Oint 35 Gm) 1 applic TOP NOW ONE Stop: 08/08/24 15:59 Last Admin: 08/08/24 16:12 Dose: Not Given Documented By: YESENIA Lidocaine (Lidocaine 5% Patch) 1 each TOP NOW ONE Stop: 08/08/24 16:14 Last Admin: 08/08/24 16:23 Dose: 1 each Documented By: YESENIA Morphine Sulfate (Morphine 4 Mg/Ml Inj) 4 mg IV NOW ONE Stop: 08/08/24 15:59 Last Admin: 08/08/24 16:23 Dose: 4 mg Documented By: YESENIA Morphine Sulfate (Morphine 4 Mg/Ml Inj) 4 mg IV NOW ONE Stop: 08/08/24 20:01 Last Admin: 08/08/24 20:12 Dose: 4 mg Documented By: YESENIA Morphine Sulfate (Morphine 4 Mg/Ml Inj) 4 mg IV NOW ONE Stop: 08/09/24 01:05 Last Admin: 08/09/24 01:31 Dose: 4 mg Documented By: MARCUS Vital Signs Vital signs: Vital Signs - 8 hr 08/08/24 19:30 08/08/24 19:30 08/08/24 20:00 Pulse Rate 96 H 95 H Respiratory Rate 23 24 Blood Pressure 137/92 H Pulse Oximetry 94 94 Oxygen Delivery Method Oxygen Flow Rate 08/08/24 20:00 08/08/24 20:30 08/08/24 20:30 Pulse Rate 94 H Respiratory Rate 22 Blood Pressure 128/85 117/88 Pulse Oximetry 92 Oxygen Delivery Method Oxygen Flow Rate 08/08/24 20:40 08/08/24 20:40 08/08/24 21:00 Pulse Rate 90 90 Respiratory Rate 22 22 Blood Pressure 135/86 Pulse Oximetry 93 92 Oxygen Delivery Method Oxygen Flow Rate 08/08/24 21:00 08/08/24 21:30 08/08/24 21:30 Pulse Rate 88 Respiratory Rate 23 Blood Pressure 136/78 132/81 Pulse Oximetry 93 Oxygen Delivery Method Oxygen Flow Rate 08/08/24 21:47 08/08/24 21:47 08/08/24 22:00 Pulse Rate 84 83 Respiratory Rate 2 L 23 Blood Pressure 147/93 H Pulse Oximetry 94 93 Oxygen Delivery Method Oxygen Flow Rate 08/08/24 22:00 08/08/24 22:30 08/08/24 22:30 Pulse Rate 85 Respiratory Rate 22 Blood Pressure 138/74 125/74 Pulse Oximetry 92 Oxygen Delivery Method Oxygen Flow Rate 08/08/24 23:00 08/08/24 23:01 08/08/24 23:01 Pulse Rate 88 88 Respiratory Rate 24 22 Blood Pressure 137/82 Pulse Oximetry 93 92 Oxygen Delivery Method Oxygen Flow Rate 08/08/24 23:30 08/08/24 23:30 08/09/24 00:00 Pulse Rate 91 H 87 Respiratory Rate 23 24 Blood Pressure 117/80 Pulse Oximetry 91 Oxygen Delivery Method Room Air Oxygen Flow Rate 08/09/24 00:00 08/09/24 00:30 08/09/24 00:30 Pulse Rate 87 Respiratory Rate 27 H Blood Pressure 133/80 125/87 Pulse Oximetry 89 L Oxygen Delivery Method Oxygen Flow Rate 08/09/24 01:00 08/09/24 01:00 08/09/24 01:30 Pulse Rate 95 H 95 H Respiratory Rate 23 24 Blood Pressure 130/85 Pulse Oximetry 94 94 Oxygen Delivery Method Nasal Cannula Oxygen Flow Rate 2 08/09/24 01:31 08/09/24 01:31 08/09/24 02:00 Pulse Rate 94 H 97 H Respiratory Rate 21 Blood Pressure 127/84 Pulse Oximetry 94 94 Oxygen Delivery Method Nasal Cannula Oxygen Flow Rate 2 08/09/24 02:00 08/09/24 02:30 08/09/24 02:30 Pulse Rate 99 H Respiratory Rate 22 Blood Pressure 126/81 125/80 Pulse Oximetry 94 Oxygen Delivery Method Nasal Cannula Oxygen Flow Rate 2 <Joey Chatman, - Last Filed: 08/09/24 03:10> Orders Ordered: Discontinued Medications Al Hydrox/Mg Hydrox/Simethicone (Mag Hydrox/Alum/Simeth 30 Ml Udc) 30 ml PO NOW ONE Stop: 08/08/24 15:59 Last Admin: 08/08/24 16:23 Dose: 30 ml Documented By: YESENIA Diazepam (Diazepam 10 Mg/2 Ml Syringe) 2 mg IV NOW ONE Stop: 08/09/24 03:04 Last Admin: 08/09/24 03:33 Dose: Not Given Documented By: Famotidine (Famotidine 20 Mg/2 Ml Vial) 20 mg IV NOW LACEY Last Admin: 08/08/24 16:25 Dose: 20 mg Documented By: YESENIA Lidocaine (Lidocaine 5% Oint 35 Gm) 1 applic TOP NOW ONE Stop: 08/08/24 15:59 Last Admin: 08/08/24 16:12 Dose: Not Given Documented By: YESENIA Lidocaine (Lidocaine 5% Patch) 1 each TOP NOW ONE Stop: 08/08/24 16:14 Last Admin: 08/08/24 16:23 Dose: 1 each Documented By: YESENIA Morphine Sulfate (Morphine 4 Mg/Ml Inj) 4 mg IV NOW ONE Stop: 08/08/24 15:59 Last Admin: 08/08/24 16:23 Dose: 4 mg Documented By: YESENIA Morphine Sulfate (Morphine 4 Mg/Ml Inj) 4 mg IV NOW ONE Stop: 08/08/24 20:01 Last Admin: 08/08/24 20:12 Dose: 4 mg Documented By: YESENIA Morphine Sulfate (Morphine 4 Mg/Ml Inj) 4 mg IV NOW ONE Stop: 08/09/24 01:05 Last Admin: 08/09/24 01:31 Dose: 4 mg Documented By: MARCUS Vital Signs Vital signs: Vital Signs - 8 hr 08/08/24 19:30 08/08/24 19:30 08/08/24 20:00 Pulse Rate 96 H 95 H Respiratory Rate 23 24 Blood Pressure 137/92 H Pulse Oximetry 94 94 Oxygen Delivery Method Oxygen Flow Rate 08/08/24 20:00 08/08/24 20:30 08/08/24 20:30 Pulse Rate 94 H Respiratory Rate 22 Blood Pressure 128/85 117/88 Pulse Oximetry 92 Oxygen Delivery Method Oxygen Flow Rate 08/08/24 20:40 08/08/24 20:40 08/08/24 21:00 Pulse Rate 90 90 Respiratory Rate 22 22 Blood Pressure 135/86 Pulse Oximetry 93 92 Oxygen Delivery Method Oxygen Flow Rate 08/08/24 21:00 08/08/24 21:30 08/08/24 21:30 Pulse Rate 88 Respiratory Rate 23 Blood Pressure 136/78 132/81 Pulse Oximetry 93 Oxygen Delivery Method Oxygen Flow Rate 08/08/24 21:47 08/08/24 21:47 08/08/24 22:00 Pulse Rate 84 83 Respiratory Rate 2 L 23 Blood Pressure 147/93 H Pulse Oximetry 94 93 Oxygen Delivery Method Oxygen Flow Rate 08/08/24 22:00 08/08/24 22:30 08/08/24 22:30 Pulse Rate 85 Respiratory Rate 22 Blood Pressure 138/74 125/74 Pulse Oximetry 92 Oxygen Delivery Method Oxygen Flow Rate 08/08/24 23:00 08/08/24 23:01 08/08/24 23:01 Pulse Rate 88 88 Respiratory Rate 24 22 Blood Pressure 137/82 Pulse Oximetry 93 92 Oxygen Delivery Method Oxygen Flow Rate 08/08/24 23:30 08/08/24 23:30 08/09/24 00:00 Pulse Rate 91 H 87 Respiratory Rate 23 24 Blood Pressure 117/80 Pulse Oximetry 91 Oxygen Delivery Method Room Air Oxygen Flow Rate 08/09/24 00:00 08/09/24 00:30 08/09/24 00:30 Pulse Rate 87 Respiratory Rate 27 H Blood Pressure 133/80 125/87 Pulse Oximetry 89 L Oxygen Delivery Method Oxygen Flow Rate 08/09/24 01:00 08/09/24 01:00 08/09/24 01:30 Pulse Rate 95 H 95 H Respiratory Rate 23 24 Blood Pressure 130/85 Pulse Oximetry 94 94 Oxygen Delivery Method Nasal Cannula Oxygen Flow Rate 2 08/09/24 01:31 08/09/24 01:31 08/09/24 02:00 Pulse Rate 94 H 97 H Respiratory Rate 21 Blood Pressure 127/84 Pulse Oximetry 94 94 Oxygen Delivery Method Nasal Cannula Oxygen Flow Rate 2 08/09/24 02:00 08/09/24 02:30 08/09/24 02:30 Pulse Rate 99 H Respiratory Rate 22 Blood Pressure 126/81 125/80 Pulse Oximetry 94 Oxygen Delivery Method Nasal Cannula Oxygen Flow Rate 2 MDM - SOB/Dyspnea <Kathya Mcallister MD - Last Filed: 08/10/24 11:16> Lab Data 08/08/24 12:00 08/08/24 12:00 Labs: Lab Results 08/08/24 08/08/24 Range/Units 12:00 16:00 WBC 10.8 (4.5-11.0) X10^3/uL RBC 4.05 (4.0-5.2) X10^6/uL Hgb 12.4 (12.0-16.0) g/dL Hct 36.2 (36-46) % MCV 89.5 (80-100) fL MCH 30.7 (26-34) PG MCHC 34.2 (30-36) % RDW 14.6 (11.6-14.8) % Plt Count 351 (150-400) X10^3/uL Neut % (Auto) 80.8 H (50-75) % Lymph % (Auto) 10.0 L (25-40) % Freestone % (Auto) 7.8 (3-14) % Eos % (Auto) 0.7 L (2-4) % Baso % (Auto) 0.7 (0-2) % Neut # (Auto) 8700 H (7616-9447) /uL Lymph # (Auto) 1100 (0622-5110) /uL Freestone # (Auto) 800 (0-900) /uL Eos # (Auto) 100 (0-450) /uL Baso # (Auto) 100 (0-100) /uL PT 18.6 H (9.4-12.5) SECONDS INR 1.7 H (0.9-1.3) Sodium 130 L (137-145) mmol/L Potassium 3.7 (3.4-5.1) mmol/L Chloride 97 L (98-107) mmol/L Carbon Dioxide 25 (22-32) mmol/L BUN 13 (7-17) mg/dL Creatinine 0.56 (0.52-1.04) mg/dL Estimated GFR > 60 (>60) mL/min BUN/Creatinine Ratio 23.2 H (6-22) Glucose 114 H (70-99) mg/dL Lactate 0.7 (0.7-2.1) mmol/L Calcium 9.1 (8.4-10.2) mg/dL Total Bilirubin 0.9 (0.2-1.3) mg/dL AST 26 (14-36) IU/L ALT 20 (<35) IU/L Alkaline Phosphatase 134 H (38-126) U/L Troponin I < 0.012 < 0.012 (0.01-0.034) ng/mL NT-Pro-B Natriuret Pep 1110 H (<125) pg/mL Total Protein 7.7 (6.3-8.2) g/dL Albumin 4.2 (3.5-5.0) g/dL Globulin 3.5 (1.7-4.1) g/dL Albumin/Globulin Ratio 1.2 (1.0-2.8) MDM Narrative Medical decision making narrative: In brief, this is a 74-year-old female history of atrial fibrillation on Eliquis, recently discharged from the hospital on 08/01 where she was treated for community-acquired pneumonia here with cough, shortness of breath, chest pain and neck and back pain. In chart review: I see patient was admitted with possible pneumonia and concern for diastolic heart failure with hyponatremia. She was diuresed and given antibiotics. Sodium did improve with cessation of diuretics, given salt tablets and sodium chloride infusion. She had been on oxcarbazepine for the last 8 years. Antibiotics were continued while she was in the hospital and she was stable for discharge on August 01. She was discharged on oral antibiotics and tapered off her oxcarbazepine over the next 10 days. On arrival to the emergency department, the patient appears uncomfortable but no acute respiratory distress. Exam is pertinent for: Crackles at the bases no significant lower edema or unilateral calf pain or swelling. She is slightly tachycardic in the 100s with irregularly irregular rhythm. Differential diagnoses considered but not limited to: Heart failure exacerbation, pneumonia/hospital-acquired pneumonia, pulmonary embolism, ACS, pleurisy, musculoskeletal pain, spasm, pericarditis/myocarditis Initial treatment plan includes: IV morphine, topical lidocaine, Tylenol, check laboratories including serial troponins, sent for CTA to exclude PE EKG 1206: Atrial fibrillation rate of 92, normal QRS 90, normal axis, QTC 469. No ST segment elevation or depression Laboratories pertinent for: No leukocytosis, no anemia, sodium 130 stable from discharge and improved from prior, stable BUN creatinine ratio, BNP is 1100 as compared to 1620 during hospitalization. Troponin negative. Imaging pertinent for: Chest x-ray obtained prior to my evaluation of the patient and shows [id number] left lower lung opacities likely mixture of airspace disease and effusion. Cardiomegaly noted. CTPE study negative for PE, shows persistance of pneumonia and very large pericardial effusion. I think this patient may benefit from transfer with consultation for pericardiocentesis and further treatment for CAP. I have covered here with Cefepime and azithromycin. Patient will be signed out to oncoming physician pending reevaluation and transfer to higher level of care. 1819: Patient was signed out to me by Dr. Mcallister, patient is a 74-year-old female with a history of AFib on Eliquis, recently discharged from the hospital in which she was treated for cap, presenting for persistent cough shortness of breath, on workup performed here in the emergency department CTA without PE but showing large pericardial effusion, troponin negative, patient currently not requiring any supplemental oxygen, however given patient with symptomatic pericardial effusion we will require most likely transfer to higher level care for drainage. EKG is nonischemic, does show possible persistence in pneumonia therefore antibiotics ordered (cefepime and azithromycin). 2030: Discussed case with Dr. Hudson (cardiothoracic surgeon at [facility]) agrees that patient should be transferred, is recommending discussion with hospitalist for admission. Will await call back 2125: Had another discussion with Dr. Hudson, who states she would like a CTA to make sure patient is not dissecting, 2208: CTA negative for dissection this was relayed to Dr. Hudson. 2340: Discussed case with Dr. Loera (hospitalist at [facility]) who accepts the admission, patient accepted pending bed status, awaiting call back from transfer center for ETA and bed availability .16.25 @ 0100: [facility] called with an update, they state that they are now on divert, bed that was allegedly supposed to be given to the patient was given away, they state that she is on the wait list but states that they estimate a proximally 3 days. Therefore at this time we will start reaching out to surrounding hospitals for transfer 0129: Had a discussion with logging contractor Dr. Aldrich at [facility] who agrees with transfer of patient, states no additional recommendations at this time, states admission to the the hospitalist, transfer center states will reach out for hospitalist admission 0156: Discussed case with Dr. Brito, hospitalist at [facility], accepts the admission, will call back with bed 0310: Transport here, patient's vital signs reviewed safe for transport to [facility] <Joey Chatman, - Last Filed: 08/09/24 03:10> Lab Data Labs: Lab Results 08/08/24 08/08/24 Range/Units 12:00 16:00 WBC 10.8 (4.5-11.0) X10^3/uL RBC 4.05 (4.0-5.2) X10^6/uL Hgb 12.4 (12.0-16.0) g/dL Hct 36.2 (36-46) % MCV 89.5 (80-100) fL MCH 30.7 (26-34) PG MCHC 34.2 (30-36) % RDW 14.6 (11.6-14.8) % Plt Count 351 (150-400) X10^3/uL Neut % (Auto) 80.8 H (50-75) % Lymph % (Auto) 10.0 L (25-40) % Freestone % (Auto) 7.8 (3-14) % Eos % (Auto) 0.7 L (2-4) % Baso % (Auto) 0.7 (0-2) % Neut # (Auto) 8700 H (7917-5555) /uL Lymph # (Auto) 1100 (0134-3291) /uL Freestone # (Auto) 800 (0-900) /uL Eos # (Auto) 100 (0-450) /uL Baso # (Auto) 100 (0-100) /uL PT 18.6 H (9.4-12.5) SECONDS INR 1.7 H (0.9-1.3) Sodium 130 L (137-145) mmol/L Potassium 3.7 (3.4-5.1) mmol/L Chloride 97 L (98-107) mmol/L Carbon Dioxide 25 (22-32) mmol/L BUN 13 (7-17) mg/dL Creatinine 0.56 (0.52-1.04) mg/dL Estimated GFR > 60 (>60) mL/min BUN/Creatinine Ratio 23.2 H (6-22) Glucose 114 H (70-99) mg/dL Lactate 0.7 (0.7-2.1) mmol/L Calcium 9.1 (8.4-10.2) mg/dL Total Bilirubin 0.9 (0.2-1.3) mg/dL AST 26 (14-36) IU/L ALT 20 (<35) IU/L Alkaline Phosphatase 134 H (38-126) U/L Troponin I < 0.012 < 0.012 (0.01-0.034) ng/mL NT-Pro-B Natriuret Pep 1110 H (<125) pg/mL Total Protein 7.7 (6.3-8.2) g/dL Albumin 4.2 (3.5-5.0) g/dL Globulin 3.5 (1.7-4.1) g/dL Albumin/Globulin Ratio 1.2 (1.0-2.8) MDM Narrative Medical decision making narrative: In brief, this is a 74-year-old female history of atrial fibrillation on Eliquis, recently discharged from the hospital on 08/01 where she was treated for community-acquired pneumonia here with cough, shortness of breath, chest pain and neck and back pain. In chart review: ICU patient was admitted with possible pneumonia and concern for diastolic heart failure with hyponatremia. She was diuresed and given antibiotics. Sodium did improve with sensation of diuretics, given salt tablets and sodium chloride infusion. She had been on oxcarbazepine for the last 8 years. Antibiotics were continued while she was in the hospital and she was stable for discharge on August 01. She was discharged on oral antibiotics and tapered off her oxcarbazepine over the next 10 days. On arrival to the emergency department, the patient appears uncomfortable but no acute respiratory distress. Exam is pertinent for: Crackles at the bases no significant lower edema or unilateral calf pain or swelling. She is slightly tachycardic in the 100s. Differential diagnoses considered but not limited to: Heart failure exacerbation, pneumonia/hospital-acquired pneumonia, pulmonary embolism, ACS, pleurisy, musculoskeletal pain, spasm Initial treatment plan includes: IV morphine, topical lidocaine, Tylenol, check laboratories including serial troponins, sent for CTA to exclude PE EKG 1206: Atrial fibrillation rate of 92, normal QRS 90, normal axis, QTC 469. No ST segment elevation or depression Laboratories pertinent for: No leukocytosis, no anemia, sodium 130 stable from discharge and improved from prior, stable BUN creatinine ratio, BNP is 1100 as compared to 16 20 during hospitalization Imaging pertinent for: Chest x-ray obtained prior to my evaluation of the patient and shows [id number] left lower lung opacities likely mixture of airspace disease and effusion. Cardiomegaly noted. Spoke with clinical services consultant at regarding On reassessment at Return precautions discussed and provided prior to discharge Pertinent scoring tools used to guide clinical decision making, if applicable: 1819: Patient was signed out to me by Dr. Mcallister, patient is a 74-year-old female with a history of AFib on Eliquis, recently discharged from the hospital in which she was treated for cap, presenting for persistent cough shortness of breath, on workup performed here in the emergency department CTA without PE but showing large pericardial effusion, troponin negative, patient currently not requiring any supplemental oxygen, however given patient with symptomatic pericardial effusion we will require most likely transfer to higher level care for drainage. EKG is nonischemic, does show possible persistence in pneumonia therefore antibiotics ordered (cefepime and azithromycin). 2030: Discussed case with Dr. Hudson (cardiothoracic surgeon at [facility]) agrees that patient should be transferred, is recommending discussion with hospitalist for admission. Will await call back 2125: Had another discussion with Dr. Hudson, who states she would like a CTA to make sure patient is not dissecting, 2208: CTA negative for dissection this was relayed to Dr. Hudson. 2340: Discussed case with Dr. Loera (hospitalist at [facility]) who accepts the admission, patient accepted pending bed status, awaiting call back from transfer center for ETA and bed availability 6.16.25 @ 0100: [facility] called with an update, they state that they are now on divert, bed that was allegedly supposed to be given to the patient was given away, they state that she is on the wait list but states that they estimate a proximally 3 days. Therefore at this time we will start reaching out to surrounding hospitals for transfer 0129: Had a discussion with logging contractor Dr. Aldrich at [facility] who agrees with transfer of patient, states no additional recommendations at this time, states admission to the the hospitalist, transfer center states will reach out for hospitalist admission 0156: Discussed case with Dr. Brito, hospitalist at [facility], accepts the admission, will call back with bed 0310: Transport here, patient's vital signs reviewed safe for transport to [facility] Critical Care Time <Kathya Mcallister MD - Last Filed: 08/10/24 11:16> Critical Care Time Attestation: Upon my evaluation, this patient had a high probability of imminent or life-threatening deterioration due to pericardial effusion, pneumonia which required my direct attention, intervention, and personal management. I have personally provided 35 minutes of critical care time exclusive of time spent on separately billable procedures. Time includes review of laboratory data, radiology results, discussion with consultants, and monitoring for potential decompensation. Interventions were performed as documented above. Ioana Mcallister MD Discharge Plan Departure Patient Disposition: [facility] Clinical Impression: Acute pericardial effusion, Pneumonia Prescriptions: No Action losartan 100 mg tablet See Rx Instructions .ROUTE .COMPLEX Qty: 90 3RF Dose Instruction: TAKE 1 TABLET DAILY Rx Instructions: TAKE 1 TABLET DAILY metoprolol succinate 25 mg tablet extended release 24 hr 25 mg PO DAILY Qty: 90 3RF acyclovir 400 mg tablet 400 mg PO 5XD PRN (Reason: outbreak) Qty: 30 6RF clobetasol 0.05 % ointment 1 applic TOP BID Qty: 60 2RF Eliquis 5 mg tablet 5 mg PO BID Qty: 20 0RF oxcarbazepine [Trileptal] 300 mg tablet 300 mg PO BID Qty: 60 5RF ursodiol 500 mg tablet 500 mg PO BID doxycycline hyclate 100 mg Tablet 100 mg PO BID Qty: 10 0RF sodium chloride 1,000 mg Tablet,Soluble 1,000 mg PO DAILY Qty: 7 0RF Referrals: Lucas Herrera DO [Primary Care Provider, [facility]]
--- NOTE | 2024-08-08 15:58 | DI.CT.S_ITS ---
PROCEDURE: CT ANGIO CHEST PE PROTOCOL INDICATIONS: chest pain TECHNIQUE: After the administration of intravenous contrast, 2 mm thick sections acquired from the pulmonary apices to the posterior costophrenic angles. 3-dimensional maximum intensity projection (MIP) coronal and sagittal reformats were then acquired through the thorax. For radiation dose reduction, the following was used: automated exposure control, adjustment of mA and/or kV according to patient size. COMPARISON: [facility], CR, XR CHEST 1V, 08/08/2024, 12:05. FINDINGS: Image quality: Diagnostic Lungs and pleura: Small left and small right pleural effusions. More focal consolidation is seen in the left lower lobe. Scattered areas of atelectasis also present. Mediastinum, heart, and esophagus: Moderate to large pericardial effusion. No acute pulmonary embolism. Cardiomegaly. No hiatal hernia. No pathologic lymph nodes by size criteria Chest wall and thyroid: Unremarkable. Partially seen small thyroid nodules. Upper abdomen: No gross abnormality on these arterial phase images Bones: No significant/aggressive osseous abnormality. Degenerative changes. IMPRESSION: No acute pulmonary embolism. Small bilateral pleural effusions and underlying opacities, most confluent in the left lower lung. Consider future imaging surveillance to assess for resolution. Moderate to large pericardial effusion which accounts for most of the a radiographic abnormality Background cardiomegaly also seen. Called to the ED. Other findings above. Dictated by: Sam Escobar M.D. on 08/08/2024 at 16:27 Approved by: Sam Escobar M.D. on 08/08/2024 at 16:32
[2024-08-08] MEDS: MORPHINE 4 MG/ML INJ IV ×2 (16:23→20:12)
[2024-08-08] MEDS: LIDOCAINE 5% PATCH 1 EACH TOP (16:23)
[2024-08-08] MEDS: MAG HYDROX/ALUM/SIMETH 30 ML UDC PO (16:23)
[2024-08-08] MEDS: FAMOTIDINE 20 MG/2 ML VIAL IV (16:25)
[2024-08-08 16:30] LABS: Troponin I < 0.012 ng/mL (0.01-0.034)
--- NOTE | 2024-08-08 18:48 | PC.NURSE ---
Pt reports improvement in chest pain. muffled heart tones noted
--- NOTE | 2024-08-08 21:27 | DI.CT.S_ITS ---
PROCEDURE: CT ANGIO CHEST ABDOMEN INDICATIONS: large pericardial effusion, concern for dissection TECHNIQUE: Precontrast 5 mm thick sections acquired from the lung apices to the iliac crests. After the administration of intravenous contrast, 2.5 mm thick sections again acquired from the lung apices to the iliac crests. 10 mm maximum intensity projection (MIP) oblique sagittal and coronal reformats were then acquired. For radiation dose reduction, the following was used: automated exposure control. COMPARISON: [facility], CT, CT ANGIO CHEST PE PROTOCOL, 08/08/2024, 15:59. FINDINGS: Image quality: Diagnostic. AORTA: No aortic aneurysm. No acute aortic syndrome. Ectasia of the ascending thoracic aorta measuring 4.5 cm in maximum dimension. No evidence for dissection. Origins of the celiac trunk, SMA, and bilateral renal arteries appear patent. CHEST: Lower Neck: No enlarged lymph nodes. Thyroid: There is a 2.0 cm right thyroid nodule. Axillae: No enlarged lymph nodes. Chest Wall: Unremarkable. Bones: No acute vertebral body compression fractures. Multilevel spondylitic changes throughout the imaged spine. No suspicious osseous lesions. Lungs and Pleura: Small bilateral pleural effusions larger on the left with associated compressive atelectasis. Patchy consolidation of the left lower lobe and dependent portions of the left upper lobe likely related to atelectasis. No new consolidation. No pneumothorax. No suspicious pulmonary nodule. Heart: Heart size is stable with large pericardial effusion there is mild flattening of the anterior wall of the right ventricle. No definite flattening of the interventricular septum. Overall no significant interval change from study earlier same day. Thoracic Vessels: Ectasia of the ascending thoracic aorta. Borderline enlargement of the main pulmonary artery at 3.0 cm. . Mediastinum and Pamela: No pathologically enlarged lymph nodes. Multiple prominent mediastinal and hilar lymph nodes which are more notable for number rather than size are favored to represent reactive adenopathy. Esophagus: No wall thickening. No hiatal hernia. ABDOMEN: Liver: No solid mass. Gallbladder: No radiopaque gallstones or wall thickening. Biliary ducts: No biliary dilation. Pancreas: No ductal dilation. Spleen: Size is within normal limits. Adrenal Glands: No adrenal nodules. Kidneys and Ureters: No hydronephrosis. No solid mass. No complex renal cystic lesion which requires follow up. Stomach and Bowel: Normal colonic caliber, without significant wall thickening. Moderate fecal burden seen throughout the colon. No evidence for small bowel obstruction or associated inflammatory changes. Peritoneum: No abnormal intraperitoneal fluid. No free air. Ventral Wall: No hernia. Abdominal Nodes: No retroperitoneal or mesenteric adenopathy by size criteria. Vessels: Inferior vena cava is normal in size. Bones: No aggressive osseous abnormality. No acute vertebral body compression fractures. Multilevel spondylitic changes throughout the imaged spine. No suspicious osseous lesions. IMPRESSION: Ectatic ascending thoracic aorta measuring up to 4.5 cm in diameter. Otherwise, no evidence for aneurysmal dilatation of the thoracic or abdominal aorta. No evidence for dissection/acute aortic syndrome. Redemonstration of mild cardiomegaly with large pericardial effusion with minimal flattening of the anterior wall of the right ventricle. No definite flattening of the interventricular septum. Consider further evaluation with echocardiogram. Overall, this has not changed significantly compared to CT angiogram of the chest from earlier same day. Small bilateral pleural effusions with associated compressive atelectasis and dependent left upper and lower lobe consolidations. Recommend short interval follow-up CT to document resolution. Incidental note of a 2.0 cm right thyroid nodule. Recommend outpatient thyroid ultrasound for further evaluation. Other chronic findings as above. Dictated by: Idris Albarado M.D. on 08/08/2024 at 22:09 Approved by: Idris Albarado M.D. on 08/08/2024 at 22:20
[2024-08-09] VITALS (8 sets, daily range): BP systolic 114–133; BP diastolic 78–87; PULSE 87–99; RESP 21–27; O2SAT 89–94
[2024-08-09] MEDS: MORPHINE 4 MG/ML INJ IV (01:31)
== END 2024-08-09 03:49 | disposition short-term general hospital (02) ==
PROVIDERS: Student in an Organized Health Care Education/Training Program; Emergency Provider Student in an Organized Health Care Education/Training Program; PCP Family Medicine
DX: J90 Pleural effusion, not elsewhere classified (principal); J18.9 Pneumonia, unspecified organism; R05.9 Cough, unspecified; M54.2 Cervicalgia; Z79.01 Long term (current) use of anticoagulants
CPT/HCPCS: 71045; 71275; 74175; 80053; 83605; 83880; 84484; 85025; 85610; 93005; 93010; 96374; 96375; 96376; 99284; 99291; J2270; J3360; Q9967

== ENCOUNTER → 2024-08-18 08:44 | Outpatient (CLI) | payer MEDICARE, MEDICAID, SELFPAY ==
[2024-07-28 04:08] VITALS: BMI 28.6
[2024-08-18 09:53] LABS: Add Manual Diff / Slide Review NO; Basophils Absolute Auto 0 /uL (0-100); Basophils Percent Auto 0.6 % (0-2); Eosinophils Absolute Auto 200 /uL (0-450); Eosinophils Percent Auto 2.5 % (2-4); Lymphocytes Absolute Auto 1300 /uL (1100-4500); Lymphocytes Percent Auto 18.1 % (25-40); Mean Corpuscular HGB Conc 34.2 % (30-36); Mean Corpuscular Hemoglobin 30.5 PG (26-34); Mean Corpuscular Volume 89.1 fL (80-100); Monocytes Absolute Auto 600 /uL (0-900); Monocytes Percent Auto 7.9 % (3-14); Neutrophils Absolute Auto 5200 /uL (1500-7000); Neutrophils Percent Auto 70.9 % (50-75); Platelet Count 417 X10^3/uL (150-400); Red Blood Cell Count 3.92 X10^6/uL (4.0-5.2); Red Cell Distribution Width 14.1 % (11.6-14.8); White Blood Cell Count 7.3 X10^3/uL (4.5-11.0)
[2024-08-18 10:50] LABS: Blood Urea Nitrogen 12 mg/dL (7-17); Calcium 9.4 mg/dL (8.4-10.2); Carbon Dioxide 25 mmol/L (22-32); Chloride 100 mmol/L (98-107); Estimated Glomerular Filt Rate > 60 mL/min (>60); Glucose 105 mg/dL (70-99); HEMOLYSIS < 15 (0-50); Sodium 133 mmol/L (137-145)
== END ==
PROVIDERS: PCP Family Medicine; Referring Provider Internal Medicine Critical Care Medicine; Visit Provider Internal Medicine Critical Care Medicine
DX: J90 Pleural effusion, not elsewhere classified (principal)
CPT/HCPCS: 36415; 80048; 85025; 86140

== ENCOUNTER → 2024-08-24 09:15 | Outpatient (CLI) | payer MEDICARE, MEDICAID, SELFPAY ==
[2024-07-28 04:08] VITALS: BMI 28.6
--- NOTE | 2024-08-24 09:16 | DI.ECHO.S_ITS ---
[place] : : [address] : [address] : : [id number] : : Phone: [phone] Echocardiogram Report + + :Name: LAUREN ABDI Study Date: 08/24/2024 Height: 63 in : :[facility] ReadingLocation: Weight: 147 lb : : Gender: Female BSA: 1.7 m2 : :: 1950 Age: 74 yrs BP: 135/97 mmHg: :Reason For Study: PERICARDIAL EFFUSION : :Ordering Physician: DENNIS, : :MARIANO Performed By: Ector Helms : :Referring: MARIANO COLLINS : + + Interpretation Summary The ejection fraction is estimated to be 55-60%. There is severe biatrial enlargement. There is mild mitral regurgitation. There is mild aortic regurgitation. The right ventricular systolic pressure is estimated to be at least 29 mmHg based on an estimated right atrial pressure of 8 mm Hg. There is mild tricuspid regurgitation. There is a trivial to small pericardial effusion noted. There is a moderate left-sided pleural effusion. Procedure: A two-dimensional transthoracic echocardiogram with color flow and Doppler was performed. The study quality was technically good. Comparison is made with the echocardiogram of 07/28/2024. The patient was in atrial fibrillation with heart rates between 79-121 bpm during the exam. Left Ventricle: The left ventricle is normal in size. Left ventricular wall thickness is mildly increased. There is no ventricular septal defect visualized. The ejection fraction is estimated to be 55-60%. Diastolic function could not be accurately assessed due to atrial fibrillation. Right Ventricle: The right ventricle is normal size. Right ventricular systolic function is borderline reduced. Atria: There is severe biatrial enlargement. There is no Doppler evidence for an interatrial shunt. Mitral Valve: The mitral valve leaflets appear normal. There is no evidence of stenosis, fluttering, or prolapse. There is mild mitral annular calcification. There is mild mitral regurgitation. Aortic Valve: The aortic valve is trileaflet. The aortic valve is mildly calcified. The aortic valve opens well. There is mild aortic regurgitation. Tricuspid Valve: The tricuspid valve leaflets are thin and pliable. The right ventricular systolic pressure is estimated to be at least 29 mmHg based on an estimated right atrial pressure of 8 mm Hg. There is mild tricuspid regurgitation. Pulmonic Valve: The pulmonic valve is not well seen, but is grossly normal. There is trace pulmonic regurgitation. Great Vessels: The aortic root is mildly dilated. The ascending aorta is moderate-severely enlarged. The pulmonary artery is normal size. The IVC is dilated (diameter is greater than 2.1 cm) yet it collapses greater than 50% with a sniff. This suggests a right atrial pressure of 8 mm Hg. Pericardium/ Pleura There is a trivial to small pericardial effusion noted. There is a moderate left-sided pleural effusion. MMode/2D Measurements & Calculations LVIDd: 4.7 cm LVOT diam: 2.2 cm LVIDs: 3.5 cm Ao root diam: 3.8 cm FS: 24.6 % asc Aorta Diam: 4.9 cm EPSS: 0.55 cm Ao Arch Diam (Prox Trans): 2.1 cm IVSd: 1.4 cm LVPWd: 1.1 cm LV thibodeaux. diameter/BSA (cm/m^2): 2.8 LV sys. diameter/BSA (cm/m^2): 2.1 LA A2 area: 38.7 cm2 RA long axis: 7.4 cm LA A4 area: 32.7 cm2 RA area: 33.3 cm2 LA length (vol): 7.1 cm RA vol: 127.9 ml LA vol: 151.5 ml RA : 75.4 ml/m2 LA vol index: 89.3 ml/m2 IVC diam: 1.6 cm RVD1 (basal): 3.6 cm RVD2 (mid): 2.7 cm TAPSE: 1.7 cm Doppler Measurements & Calculations Ao V2 max: 135.8 cm/sec LVOT Max Xander: 94.8 cm/sec Ao V2 mean: 80.8 cm/sec LV V1 max P.6 mmHg Ao max P.4 mmHg LV V1 VTI: 16.6 cm Ao mean P.1 mmHg MINAL(I,D): 3.0 cm2 Ao V2 VTI: 21.7 cm MINAL(V,D): 2.7 cm2 sev ratio: 0.76 MINAL indexed to BSA (cm^2/m^2): 1.8 MV E max xander: 66.9 cm/sec TR max xander: 231.1 cm/sec MV A max xander: 20.2 cm/sec TR max P.4 mmHg MV E/A: 3.3 PA V2 max: 58.2 cm/sec Med Peak E' Xander: 8.7 cm/sec PA V2 mean: 42.0 cm/sec E/E' med: 7.7 PA mean P.75 mmHg Lat Peak E' Xander: 14.4 cm/sec PA pr(Accel): 77.3 mmHg E/E' lat: 4.6 E/e' average: 6.2 MV dec time: 0.16 sec SV([facility]): 64.7 ml Reading Physician:04:26 PM
== END ==
PROVIDERS: PCP Family Medicine; Referring Provider Internal Medicine Cardiovascular Disease; Visit Provider Internal Medicine Cardiovascular Disease
DX: I08.3 Combined rheumatic disorders of mitral, aortic and tricuspid valves (principal); I31.39 Other pericardial effusion (noninflammatory); J90 Pleural effusion, not elsewhere classified; I77.810 Thoracic aortic ectasia; I77.89 Other specified disorders of arteries and arterioles
CPT/HCPCS: 93306

== ENCOUNTER → 2024-09-03 08:24 | Outpatient (CLI) | payer MEDICARE, MEDICAID, SELFPAY ==
[2024-07-28 04:08] VITALS: BMI 28.6
--- NOTE | 2024-09-03 08:31 | DI.RAD.S_ITS ---
PROCEDURE: XR CHEST 2V INDICATIONS: PLURAL EFFUSION TECHNIQUE: 2 views of the chest were acquired. COMPARISON: [facility], CR, XR CHEST 1V, 08/08/2024, 12:05. FINDINGS: Surgical changes and devices: None. Lungs and pleura: Near complete interval resolution of now small left pleural effusion. No evidence of focal consolidation or pneumothorax. Minimal left lower lung zone atelectasis. Mediastinum: Mediastinal contours are normal. Heart size is normal. Atherosclerotic vascular calcifications. Bones and chest wall: No suspicious bony abnormalities. Soft tissues appear unremarkable. IMPRESSION: Small residual left pleural effusion and left lower lung zone atelectasis. Dictated by: Wali Lynch M.D. on 09/05/2024 at 17:37 Approved by: Wali Lynch M.D. on 09/05/2024 at 17:38
== END ==
PROVIDERS: PCP Family Medicine; Referring Provider Family Medicine; Visit Provider Internal Medicine Critical Care Medicine
DX: J90 Pleural effusion, not elsewhere classified (principal)
CPT/HCPCS: 71046

== ENCOUNTER → 2024-09-24 10:43 | Outpatient (CLI) | payer MEDICARE, MEDICAID, SELFPAY ==
[2024-07-28 04:08] VITALS: BMI 28.6
[2024-09-24 11:42] LABS: Alanine Aminotransferase 68 IU/L (<35); Albumin 4.0 g/dL (3.5-5.0); Albumin Globulin Ratio 1.3 (1.0-2.8); Alkaline Phosphatase 110 U/L (38-126); Blood Urea Nitrogen 19 mg/dL (7-17); Calcium 9.3 mg/dL (8.4-10.2); Carbon Dioxide 24 mmol/L (22-32); Chloride 104 mmol/L (98-107); Estimated Glomerular Filt Rate > 60 mL/min (>60); Globulin 3.1 g/dL (1.7-4.1); Glucose 88 mg/dL (70-99); HEMOLYSIS < 15 (0-50); Potassium 4.1 mmol/L (3.4-5.1); Sodium 134 mmol/L (137-145); Total Protein 7.1 g/dL (6.3-8.2)
== END ==
PROVIDERS: Family Provider Family Medicine; PCP Family Medicine; Referring Provider Internal Medicine; Visit Provider Internal Medicine
DX: K74.3 Primary biliary cirrhosis (principal)
CPT/HCPCS: 36415; 80053

== ENCOUNTER → 2024-11-11 11:32 | Outpatient (CLI) | payer MEDICARE, MEDICAID, SELFPAY ==
[2024-07-28 04:08] VITALS: BMI 28.6
--- NOTE | 2024-11-11 11:36 | DI.MRI.S_ITS ---
PROCEDURE: MR LUMBAR SPINE WO CON INDICATIONS: SPINAL STENOSIS TECHNIQUE: Noncontrast sagittal T1 spin echo and T2 fast echo, sagittal STIR, and T2 fast spin echo through the lumbar spine. In cases with scoliosis, additional coronal T2 fast spin echo may be performed. COMPARISON: [facility], MR, L-SPINE WITHOUT CONTRAST, 03/25/2017, 10:05. [facility], CT, CT ANGIO CHEST ABDOMEN, 08/08/2024, 21:31. FINDINGS: Image quality: Excellent. Alignment and Curvature: Minimal retrolisthesis can be seen at T12-L1, L2-L3 and L3-L4. Mild grade 1 anterolisthesis is seen at the L5-S1 level. No associated pars defects are seen. Bone Marrow: Marrow is of normal overall signal. A T12 level central compression deformity is seen, with associated Schmorl's nodes. There is twenty 30% loss of height centrally. There is mild STIR signal seen associated with this vertebral body. Spinal Cord: Conus medullaris terminates at the L1 level. Visualized cord demonstrates normal signal and size. Paraspinous Soft Tissues: No paravertebral masses. T12-L1: Mild loss of disc height is seen. Loss of disc signal is seen. Mild generalized disc bulge is seen. No significant neural foraminal or central canal narrowing can be seen. These imaging findings have progressed compared to the prior study. L1-L2: The disc height and disk signal are well-preserved. Mild generalized disc bulge is seen. Mild facet joint hypertrophy is seen. There is moderate left-sided and mild right-sided neural foraminal narrowing. Minimal central canal narrowing is seen. These imaging findings have progressed compared to the prior study. L2-L3: The disc height is well-preserved. Loss of disc signal is seen at this level. Moderate disc bulge is seen, which is eccentric to the left. There is a left foraminal disc protrusion. Mild facet joint hypertrophy is seen. There is mild right- sided and at least moderate left-sided neural foraminal narrowing. There is a degree of compression seen upon the exiting left L2 nerve root. Moderate central canal narrowing is seen. These imaging findings have progressed compared to the prior study. L3-L4: At least moderate loss of disc height and disc signal can be seen. Reactive marrow endplate changes are seen, which demonstrate mixed T1 weighted and T2- weighted signal, and are attributed to a combination of edema and fatty metaplasia (Modic type I and Modic type II changes). Moderate generalized disc bulge is seen. There is a superimposed central disc osteophyte protrusion. There is a focal annular fissure seen posteriorly. At least moderate facet hypertrophy is seen. There is moderate to severe bilateral neural foraminal narrowing seen, with an associated degree of compression seen upon the exiting nerve roots. Moderate central canal narrowing is seen. These degenerative changes are worse than in 2018. L4-L5: The disc height is well-preserved. Loss of disc signal is seen at this level. Moderate generalized disc bulge is seen. There is a superimposed central disc protrusion. There is a focal annular fissure seen posteriorly. Moderate to prominent facet hypertrophy is seen. There is moderate left-sided and moderate to severe right- sided neural foraminal narrowing. There is a degree of compression seen upon the exiting right L4 nerve root. Moderate to severe central canal narrowing is seen at this level. The degrees of neural foraminal narrowing appear mildly progressed compared to 2018. L5-S1: Moderate to severe loss of disc height and disc signal can be seen. Reactive marrow endplate changes are seen, which are hyperintense on T1-weighted and T2- weighted imaging and most consistent with fatty metaplasia (Modic type II changes). Moderate generalized disc bulge is seen. There is a superimposed central disc osteophyte protrusion. At least moderate facet hypertrophy can be seen. There is moderate to severe bilateral neural foraminal narrowing seen, with an associated degree of compression seen upon the exiting nerve roots. Mild central canal narrowing is seen. These imaging findings have progressed compared to the prior study. IMPRESSION: Multiple levels of significant lumbar spine degenerative change can be seen, which have progressed compared to 2018. Dictated by: Donovan Davidson M.D. on 11/11/2024 at 12:03 Approved by: Donovan Davidson M.D. on 11/11/2024 at 12:09
--- NOTE | 2024-11-11 11:37 | DI.RAD.S_ITS ---
PROCEDURE: XR DEXA AXIAL SKELETON INDICATIONS: OSTEOPOROSIS SCREENING COMPARISON: None. FINDINGS: Lumbar Spine: Bone mineral density 0.897 g/cm2, T score -1.4. Left Femoral Neck: Bone mineral density 0.568 g/cm2, T score -2.5. Left Hip: Bone mineral density 0.682 g/cm2, T score -2.1. Fracture Risk Calculation (when applicable): 10-year fracture risk of a major osteoporotic fracture 16 percent and of a hip fracture 4.8 percent. (T score greater or equal to -1.0 to: NORMAL) (T score from -1.1 to -2.4: OSTEOPENIA) (T score less than or equal to -2.5: OSTEOPOROSIS) IMPRESSION: Osteoporosis--- recommend repeat DEXA in 2 years or less for reassessment of response to treatment. Follow-up guidelines as follows: Osteoporosis: Consider a repeat DEXA and Vertebral Fracture Assessment (VFA) exam in 2 years or sooner if medically necessary, to reassess this patient's status. Osteopenia: Consider a repeat DEXA in 2-3 years to reassess this patient's status, or if there is a new clinical indication. Normal: Consider a repeat DEXA in 5 years or sooner, or if there is a new clinical indication. All treatment decisions require clinical judgment and consideration of individual patient factors, including patient preferences, comorbidities, previous drug use, risk factors not captured in the FRAX model (e.g., frailty, falls, vitamin D deficiency, increased bone turnover, interval significant decline in bone density ) and possible under- or over-estimation of fracture risk by FRAX. In addition, the NOF Guide recommends that FDA-approved medical therapies be considered in postmenopausal women and men age >= 50 years with a: * Hip or vertebral (clinical or morphometric) fracture * T-score of <=-2.5 at the spine or hip * Ten-year fracture probability by FRAX of >= 3% for hip fracture or >=20% for major osteoporotic fracture. Dictated by: Wali Lynch M.D. on 11/11/2024 at 20:11 Approved by: Wali Lynch M.D. on 11/11/2024 at 20:13
== END ==
PROVIDERS: Family Provider Family Medicine; PCP Family Medicine; Referring Provider Family Medicine; Visit Provider Family Medicine
DX: M54.40 Lumbago with sciatica, unspecified side (principal); M47.816 Spondylosis without myelopathy or radiculopathy, lumbar region; M47.817 Spondylosis without myelopathy or radiculopathy, lumbosacral region; M48.00 Spinal stenosis, site unspecified; M84.40XS Pathological fracture, unspecified site, sequela; G89.29 Other chronic pain; M81.0 Age-related osteoporosis without current pathological fracture; Z78.0 Asymptomatic menopausal state
CPT/HCPCS: 72148; 77080

== ENCOUNTER → 2024-12-09 10:56 | Outpatient (CLI) | payer MEDICARE, MEDICAID, SELFPAY ==
[2024-11-18 10:06] VITALS: BMI 28.6
[2024-12-09 12:14] LABS: Add Manual Diff / Slide Review NO; Hematocrit 36.9 % (36-46); Hemoglobin 12.4 g/dL (12.0-16.0); Lymphocytes Absolute Auto 1300 /uL (1100-4500); Mean Corpuscular HGB Conc 33.6 % (30-36); Mean Corpuscular Hemoglobin 29.6 PG (26-34); Mean Corpuscular Volume 88.0 fL (80-100); Platelet Count 225 X10^3/uL (150-400)
[2024-12-09 12:49] LABS: Alanine Aminotransferase 35 IU/L (<35); Albumin 4.1 g/dL (3.5-5.0); Albumin Globulin Ratio 1.4 (1.0-2.8); Alkaline Phosphatase 78 U/L (38-126); Blood Urea Nitrogen 16 mg/dL (7-17); Calcium 9.0 mg/dL (8.4-10.2); Carbon Dioxide 25 mmol/L (22-32); Chloride 102 mmol/L (98-107); Estimated Glomerular Filt Rate > 60 mL/min (>60); Globulin 3.0 g/dL (1.7-4.1); Glucose 91 mg/dL (70-99); HEMOLYSIS < 15 (0-50); Potassium 4.6 mmol/L (3.4-5.1); Sodium 134 mmol/L (137-145); Total Protein 7.1 g/dL (6.3-8.2)
[2024-12-09 14:44] LABS: Vitamin D 25 Hydroxy (D3) 39.9 ng/mL (30.0-100.0)
== END ==
PROVIDERS: Family Provider Family Medicine; PCP Family Medicine; Referring Provider Internal Medicine; Visit Provider Internal Medicine
DX: E55.9 Vitamin D deficiency, unspecified (principal); K74.3 Primary biliary cirrhosis
CPT/HCPCS: 36415; 80053; 82306; 85025

== ENCOUNTER 2025-01-05 11:30 | Outpatient (RCR) | payer MEDICARE, MEDICAID, SELFPAY ==
[2024-07-28 04:08] VITALS: BMI 28.6
--- NOTE | 2024-10-12 14:20 | PT.OPPOC ---
Physical, Occupational & Speech Therapy At [facility] Current Diagnoses Stiffness of right hip, not elsewhere classified (10/12/24) Muscle weakness (generalized) (10/12/24) Unspecified abnormalities of gait and mobility (10/12/24) Multiple fractures of pelvis with stable disruption of pelvic ring, subsequent encounter for fracture with routine healing (10/12/24) Visit Care Team Role Provider Type Navin Davis MD Family Provider Physician Primary Care Provider Specialty: Family Practice Address: [address] [place] [address], [id number] Email: Lucy Valadez PA-C Attending Provider Advanced Squilgeer Referring Provider Specialty: Orthopedics Orthopedic Surgery Address: [address] [place] [address], [id number] Email: [email or web address] Plan Of Care PT OP: Lower Back/Lower Extremity Start: 10/12/24 11:34 Freq: Status: Active Protocol: Document 10/12/24 11:35 [facility] (Rec: 10/12/24 11:52 [facility] [id number]) Out-Patient Physical Therapy Visit Information Visit Information Visit Type Initial Evaluation Visit Start Time 11:30 Visit Stop Time 12:15 Visit Number 1 Evaluation Information Evaluation Date 10/12/24 Current Condition History of Current Condition Onset Date 11 weeks ago Current Complaints pubix fractiure History of Current history of spinal stenosis for many years Condition 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 she walked with a walker x 8 weeks sciatic pain goes down the right leg to the right anterior leg in may she came down with influenza A which she needed to be hospitalized for at [facility]. It affected her heart and her right lung as well. She felt she was over this then fractured her pelvis when she walks she feels that her right leg is short and her gluteals really hurt Prior Treatments and 20 years ago she broke both legs as she notes she has Tests weak ankles, she was rollar skating and her ankle rolled 2000 and she broke her right tibia and underwent internal fixation Treatment Goals Patient/Caregiver Treatment goals include returning to walking at heart Goals bueno without increased pubic pain OP-PT Pain Assessment Location right buttock pain Pain Location right buttocks pain that increases with walking Details Pain Intensity 6 Scale Used Numeric (0 - 10) Description Aching Frequency Frequent right pubic bone Pain Location pain increased with walking Details Pain Intensity 6 Manual Assessments Soft Tissue Assessment Soft Tissue Mobility tightness and guarding of the adductors on the right Assessment side Right sided piriformis tightness and guarding Joint Mobility Assessment Joint Mobility hip flexion on the right limited to 100 degrees Assessment Hip Goniometric Range of Motion Hip Measured in Degrees right Hip ROM WFL No Testing Position Supine Flexion w/Knee 100 Flexed Straight Leg Raise 50 External Rotation 20 Trunk Strength Trunk Manual Muscle Testing Core Stabilization Decreased core strength and activation with decreased endurance of both the transverse abdominals and pelvic floor Hip Strength Hip Manual Muscle Testing R Flexion (L2) 3 Fair Extension (S1) 3 Fair Abduction 3 Fair Therapeutic Exercises Supine Exercises ball squeeze with pelvic floor contraction Reps/Minutes hold 5-10 seconds x 10 reps pelvic tilt with ball squeeze Reps/Minutes x 10 piriformis stretch Comments modified by pulling knee up and across towards opp shoulder Physical Therapy Assessment Rehab Potential Rehabilitation Good Potential Evaluation Complexity Number of Personal 1-2 Factors/ Comorbidities Number of Body 3 Systems Impaired Clinical Evolving Presentation at Evaluation Impairments Impairments Activity Tolerance,Functional Activities,Functional Mobility,Soft Tissue Mobility,Strength Other Impairments limited with walking due to increased pain especially [place] Goals 3 Impairment weakness of the hip musculature and right ankle DF Director Of Public Relations Goal (LTG) Morelia presents with improved strength of the right hip and right ankle DF LTG Duration 8 weeks 2 Impairment right sided hip tightness with limited ROM of hip flexion, hip ER, and SLR Short Term Goal (STG Morelia is instructed in a home program addressing hip ) ROM and flexibility STG Duration 4 weeks Senior Living Goal (LTG) Morelia is able to improve hip flexion to 115 degrees or better and SLR to 60 deg or better LTG Duration 8 weeks 1 Impairment right gluteal and right sided pubic pain rated 6/10 that increases with gait and especially walking [place] the [place] Director Of Public Relations Goal (LTG) Morelia reports a overall reduction with pain with gait and is able to return to walking in the [place] LTG Duration 8 week Assessment Summary Assessment Morelia is a 74 year old female who presents to PT today s/p right pubic fracture from a fall 11 weeks ago. She has a long history of lumbar stenosis and this fracture has significantly impacted her ability to engage in her walking activities she likes to do for exercise. She [place] walk [place] and is experiencing a great amount of pain with walking on the trails. Time was spent today educating Morelia on fracture healing and walking on uneven surfaces vs level flat surfaces. She initially was using a fww but after 8 weeks has stopped using the walker. I recommended she use walking sticks for walking in the [place] and to not push through pain with uneven surfaces. With her exam today Morelia is limited in right hip ROM and is weak both in her core and her right hip. She also presents with a referred pain down the right LE which has been with her with her lumbar stenosis however has increased since her fracture. She presents with weakness in the Tibialis anterior on the right side and has foot drop with gait especially when tired. She c/o right sided gluteal pain with gait and worsening pubic pain if she ambulated on uneven surfaces. She is interested in exercising in the pool which I feel would be a great option for her. Treatment will focus on core stabilization, hip ROM and strength, gait training and balance training Physical Therapy Plan Frequency and Duration Frequency of 2x/Week Treatment Duration of 8 treatment (weeks) Plan of Care Start 10/12/24 Date Plan of Care End 11/30/24 Date Therapeutic Interventions Therapeutic Balance Training,Home Exercise Program,Manual Therapy, Interventions Patient/Caregiver Education,Self-Care/Home Management, Therapeutic Exercises Next Visit Focus/Plan Next Note Type Treatment Note Next Visit Plan begin working on core stabilization, gluteal strengthening, hip flexibility exercises, SI balancing exercises Plan of Care Dates Plan of Care Start Date 10/12/24 Plan of Care End Date 11/30/24 Electronically Signed by: Chiara Odonnell, PT 10/12/24 5101 If you are in agreement with this Plan of Care, please return a signed and dated copy. I have reviewed this Plan of Care and certify that the skilled therapy services above are required to meet the patient?s needs. Physician Signature Date Printed Name and Credentials Clinical Instructor Signature Printed Name and Credentials
--- NOTE | 2024-10-19 17:18 | PT.OTN ---
Current Diagnoses Stiffness of right hip, not elsewhere classified (10/19/24) Muscle weakness (generalized) (10/19/24) Unspecified abnormalities of gait and mobility (10/19/24) Multiple fractures of pelvis with stable disruption of pelvic ring, subsequent encounter for fracture with routine healing (10/19/24) Physical Therapy Treatment Note PT OP: Lower Back/Lower Extremity Start: 10/12/24 11:34 Freq: Status: Active Protocol: Document 10/19/24 11:36 [facility] (Rec: 10/19/24 11:41 [facility] [id number]) Out-Patient Physical Therapy Visit Information Visit Information Visit Type Treatment Note Visit Start Time 11:35 Visit Stop Time 12:15 Visit Number 2 OP-PT Subjective Patient Comments Patient Comments pt notes she has been doing her exercises but no change in symptoms yet she did go to the pool and has been doing side steps and water walking she walked two times yesterday Therapeutic Exercises Supine Exercises hip abduction with therabAND Reps/Minutes X 10 REPS ball squeeze with pelvic floor contraction Reps/Minutes hold 10 seconds x 10 reps pelvic tilt with ball squeeze Reps/Minutes x 10 Comments cues to go slow and to reactivate her core prior to each rep piriformis stretch Supine Exercise Name cues to keep the opp knee bent to stabilize her spine Reps/Minutes 2 reps holding 30 seconds Sitting Exercises ankle DF with theraband Reps/Minutes 2 x 10 reps Comments long sitting position with level 1 TB Standing Exercises standing calf stretch Reps/Minutes hold 30 sec to 1 min standing toe lifts Reps/Minutes x 10 reps Physical Therapy Assessment Goals 3 Impairment weakness of the hip musculature and right ankle DF Erp Implementation Consultant Goal (LTG) Morelia presents with improved strength of the right hip and right ankle DF LTG Duration 8 weeks 2 Impairment right sided hip tightness with limited ROM of hip flexion, hip ER, and SLR Short Term Goal (STG Morelia is instructed in a home program addressing hip ) ROM and flexibility STG Duration 4 weeks Erp Implementation Consultant Goal (LTG) Morelia is able to improve hip flexion to 115 degrees or better and SLR to 60 deg or better LTG Duration 8 weeks 1 Impairment right gluteal and right sided pubic pain rated 6/10 that increases with gait and especially walking in the [employer] Goal (LTG) Morelia reports a overall reduction with pain with gait and is able to return to walking in the [facility] LT Duration 8 week Assessment Summary Assessment Morelia has been able to water walk and work on side stepping in the pool. I added in stabilization exercises today which she tolerated well. She needs cues to facilitate her core before each rep with pelvic tilts to avoid a click in her sacral region Physical Therapy Plan Frequency and Duration Frequency of 2x/Week Treatment Duration of 8 treatment (weeks) Plan of Care Start 10/12/24 Date Plan of Care End 11/30/24 Date Next Visit Focus/Plan Next Note Type Treatment Note Next Visit Plan continue working on pelvic and core stabilization to stabilize the pubic fracture and working on increased ankle DF due to weakness with spinal stenosis.
--- NOTE | 2024-11-04 08:24 | PT.OTN ---
Current Diagnoses Stiffness of right hip, not elsewhere classified (11/03/24) Muscle weakness (generalized) (11/03/24) Unspecified abnormalities of gait and mobility (11/03/24) Multiple fractures of pelvis with stable disruption of pelvic ring, subsequent encounter for fracture with routine healing (11/03/24) Physical Therapy Treatment Note PT OP: Lower Back/Lower Extremity Start: 10/12/24 11:34 Freq: Status: Active Protocol: Document 11/03/24 09:57 [facility] (Rec: 11/03/24 10:12 [facility] [id number]) Out-Patient Physical Therapy Visit Information Visit Information Visit Type Treatment Note Visit Note pt was late as she had a pulmonary appt first Visit Start Time 09:57 Visit Stop Time 10:35 Visit Number 4 OP-PT Subjective Patient Comments Patient Comments pt is late as she had a pulmonary appt first she had a good work out at the pool Friday, she tried to be really careful but she did feel sore in her back afterwards. She will be getting a MRI and a bone density scan as her low back continues to bother her and doctor wants to look at bone density due to her pelvic fracture Manual Therapy Treatment Consent Patient gave verbal Yes consent for manual treatment Soft Tissue Mobilization lumbar paraspinals Mobilization Type Myofascial Release Intensity/Depth Moderate Body Position Prone Comments prone over body pillow STM to the lumbar paraspinals thoracic paraspinals Mobilization Type Myofascial Release Body Position Prone Comments worked on MFR/STM of the thoracic paraspinals, tightness and guarding in this region Physical Therapy Assessment Goals 3 Impairment weakness of the hip musculature and right ankle DF Fci Goal (LTG) Morelia presents with improved strength of the right hip and right ankle DF LTG Duration 8 weeks 2 Impairment right sided hip tightness with limited ROM of hip flexion, hip ER, and SLR Short Term Goal (STG Morelia is instructed in a home program addressing hip ) ROM and flexibility STG Duration 4 weeks Fci Goal (LTG) Morelia is able to improve hip flexion to 115 degrees or better and SLR to 60 deg or better LTG Duration 8 weeks 1 Impairment right gluteal and right sided pubic pain rated 6/10 that increases with gait and [place] Fur Blender Goal (LTG) Morelia reports a overall reduction with pain with gait and is able to return to [place] LTG Duration 8 week Assessment Summary Assessment Morelia is working on her exercises in the pool and has been doing all her stretches at home. I did try soft tissue work today to see if we could decompress the spine some as the spinal stenosis has been exacerbated after her pelvic fracture. She tolerated this well. She is getting scheduled for a MRI as she is experiencing increased foot drop with decreased ankle DF strength Physical Therapy Plan Frequency and Duration Frequency of 2x/Week Treatment Duration of 8 treatment (weeks) Plan of Care Start 10/12/24 Date Plan of Care End 11/30/24 Date Next Visit Focus/Plan Next Note Type Treatment Note Next Visit Plan continue working on core stability to stabilize the pelvic ring and pubic fracture, check in with how Morelia did with STM/MFR techniques and pool exercises
--- NOTE | 2024-11-10 12:37 | PT.OTN ---
Current Diagnoses Stiffness of right hip, not elsewhere classified (11/10/24) Muscle weakness (generalized) (11/10/24) Unspecified abnormalities of gait and mobility (11/10/24) Multiple fractures of pelvis with stable disruption of pelvic ring, subsequent encounter for fracture with routine healing (11/10/24) Physical Therapy Treatment Note PT OP: Lower Back/Lower Extremity Start: 10/12/24 11:34 Freq: Status: Active Protocol: Document 11/10/24 10:46 [facility] (Rec: 11/10/24 11:07 [facility] [id number]) Out-Patient Physical Therapy Visit Information Visit Information Visit Type Treatment Note Visit Start Time 10:45 Visit Stop Time 11:30 Visit Number 5 OP-PT Subjective Patient Comments Patient Comments pt reports she is doing better, she is able to walk further now and she feels her pelvis overall is doing better, its the stenosis that is really still bothering her she is getting a MRI and bone scan tomorrow Therapeutic Exercises Supine Exercises single knee to chest stretch Side bilateral Reps/Minutes hold 30 sec x 2 Standing Exercises single leg stance Standing Exercise use counter for light support Name Side bilateral Reps/Minutes hold 30 sec to 1 min Comments cues to avoid opp hip drop standing calf stretch Reps/Minutes hold 30 sec to 1 min Manual Therapy Treatment Soft Tissue Mobilization lumbar paraspinals Mobilization Type Myofascial Release Intensity/Depth Moderate Body Position Prone Comments prone over body pillow STM to the lumbar paraspinals thoracic paraspinals Mobilization Type Myofascial Release Body Position Prone Comments worked on MFR/STM of the thoracic paraspinals, tightness and guarding in this region Physical Therapy Assessment Goals 3 Impairment weakness of the hip musculature and right ankle DF Etcher Hand Goal (LTG) Morelia presents with improved strength of the right hip and right ankle DF LTG Duration 8 weeks 2 Impairment right sided hip tightness with limited ROM of hip flexion, hip ER, and SLR Short Term Goal (STG Morelia is instructed in a home program addressing hip ) ROM and flexibility STG Duration 4 weeks Care Home Goal (LTG) Morelia is able to improve hip flexion to 115 degrees or better and SLR to 60 deg or better LTG Duration 8 weeks 1 Impairment right gluteal and right sided pubic pain rated 6/10 that increases with gait and especially [place] Care Home Goal (LTG) Morelia reports a overall reduction with pain with gait and is able to return [place] pain reports little to no pain now from her pelvic area now. It is the lumbar stenosis that is flared. LTG Duration 8 week Assessment Summary Assessment Morelia is doing really well with her home program and working in the pool. She is still weak in the gluteus medius and we worked on single leg stance exercise today. She will add this to her pool program. She has her MRI and bone scan done tomorrow Physical Therapy Plan Frequency and Duration Frequency of 2x/Week Treatment Duration of 8 treatment (weeks) Plan of Care Start 10/12/24 Date Plan of Care End 11/30/24 Date Next Visit Focus/Plan Next Note Type Treatment Note Next Visit Plan check in on results of MRI, bone scan, review single leg stance exercise
--- NOTE | 2024-11-16 11:46 | PT.OPPOC ---
Physical, Occupational & Speech Therapy At [facility] Current Diagnoses Stiffness of right hip, not elsewhere classified (11/16/24) Muscle weakness (generalized) (11/16/24) Unspecified abnormalities of gait and mobility (11/16/24) Multiple fractures of pelvis with stable disruption of pelvic ring, subsequent encounter for fracture with routine healing (11/16/24) Visit Care Team Role Provider Type Navin Dvais MD Family Provider Physician Primary Care Provider Specialty: Family Practice Address: [address] [place] [address], [id number] Email: Lucy Valadez PA-C Attending Provider Advanced Ceiling Insulation Blower Referring Provider Specialty: Orthopedics Orthopedic Surgery Address: [address] [place] [address], [id number] Email: [email or web address] Plan Of Care PT OP: Lower Back/Lower Extremity Start: 10/12/24 11:34 Freq: Status: Active Protocol: Document 11/16/24 10:45 [facility] (Rec: 11/16/24 11:05 [facility] [id number]) Out-Patient Physical Therapy Visit Information Visit Information Visit Type Progress Note Visit Start Time 10:45 Visit Stop Time 11:30 Visit Number 6 OP-PT Subjective Patient Comments Patient Comments pt started swimming at the pool with mask and snorkle with her head down. SHe feels good doing that. She can feel the weakness on her left side and MRI does she compression of the nerves at L2-3 and L-4 Therapeutic Exercises Sitting Exercises seated sidebends Reps/Minutes 5 reps hold 1- sec each side then longer hold x 30 seconds seated lumbar flexion after walking Reps/Minutes 1-2 reps holding 30 seconds + Standing Exercises single leg stance Standing Exercise use counter for light support Name Side bilateral Reps/Minutes hold 30 sec to 1 min Comments cues to avoid opp hip drop hip abductions Reps/Minutes 2 x 10 reps Comments in pool at edge of pool standing hip flexion Reps/Minutes x 10 reps-20 reps Comments in pool standing hamstring curls Reps/Minutes 10 reps Comments to do in pool with cues to keep core engaged standing quad stretch Reps/Minutes hold 30 sec to a min standing calf stretch Reps/Minutes hold 30 sec to 1 min standing toe lifts Reps/Minutes x 10 reps Comments this is really challanging for Morelia to do Manual Therapy Treatment Soft Tissue Mobilization lumbar paraspinals Mobilization Type Myofascial Release Intensity/Depth Moderate Body Position Prone Comments prone over body pillow STM to the lumbar paraspinals thoracic paraspinals Mobilization Type Myofascial Release Body Position Prone Comments worked on MFR/STM of the thoracic paraspinals, tightness and guarding in this region Physical Therapy Assessment Goals 3 Impairment weakness of the hip musculature and right ankle DF Prison Goal (LTG) Morelia presents with improved strength of the right hip and right ankle DF pt is able to work her hip and ankle DF strength in the pool. She remains limited in strength and nerve root compression that is showing on MRI is contributing to this LTG Duration 8 weeks 2 Impairment right sided hip tightness with limited ROM of hip flexion, hip ER, and SLR Short Term Goal (STG Morelia is instructed in a home program addressing hip ) ROM and flexibility excellent progress STG Duration 4 weeks Intern Goal (LTG) Morelia is able to improve hip flexion to 115 degrees or better and SLR to 60 deg or better excellent progress hip flexion is to 115 degrees now, SLR is 55 LTG Duration 8 weeks 1 Impairment right gluteal and right sided pubic pain rated 6/10 that increases with gait and [place] Intern Goal (LTG) Morelia reports a overall reduction with pain with gait and is able to [place] pain reports little to no pain now from her pelvic area now. It is the lumbar stenosis that is flared. LTG Duration 8 week Assessment Summary Assessment Morelia is progressing really well with her pelvis and she notes at this time she is not feeling pain from the pelvic fracture. Her chief complaint of symptoms is from her low back and the stenosis there. She did get her MRI back and it does show nerve root compression at L2-4 and she is presenting with left hip weakness and ankle DF weakness B. SHe is working both in the pool to move her body but also walking on land. I have encouraged her to stretch following walking as her back does get tighter after a walk. Morelia would benefit from continued PT Physical Therapy Plan Frequency and Duration Frequency of 1x/Week Treatment Duration of 8 treatment (weeks) Plan of Care Start 11/16/24 Date Plan of Care End 01/11/25 Date Next Visit Focus/Plan Next Note Type Treatment Note Next Visit Plan continue working on manual therapy techniques to decompress the spine, stretches for the lumbar spine and stabilization exercsies. Morelia will continue working in the pool 3 times per week and going [place] Plan of Care Dates Plan of Care Start Date 11/16/24 Plan of Care End Date 01/11/25 Electronically Signed by: Chiara Odonnell, PT 11/16/24 [id number] If you are in agreement with this Plan of Care, please return a signed and dated copy. I have reviewed this Plan of Care and certify that the skilled therapy services above are required to meet the patient?s needs. Physician Signature Date Printed Name and Credentials Clinical Instructor Signature Printed Name and Credentials
--- NOTE | 2024-11-23 13:29 | PT.OTN ---
Current Diagnoses Stiffness of right hip, not elsewhere classified (11/23/24) Muscle weakness (generalized) (11/23/24) Unspecified abnormalities of gait and mobility (11/23/24) Multiple fractures of pelvis with stable disruption of pelvic ring, subsequent encounter for fracture with routine healing (11/23/24) Physical Therapy Treatment Note PT OP: Lower Back/Lower Extremity Start: 10/12/24 11:34 Freq: Status: Active Protocol: Document 11/23/24 10:49 [facility] (Rec: 11/23/24 10:55 [facility] [id number]) Out-Patient Physical Therapy Visit Information Visit Information Visit Type Treatment Note Visit Start Time 10:49 Visit Stop Time 11:30 Visit Number 7 OP-PT Subjective Patient Comments Patient Comments pt notes she tried something different at the pool and is trying sidestroke instead of breast stroke she feels good today she got her results back on her pelvis and it looks all healed and good. SHe is back on the tynelol and it is helping Manual Therapy Treatment Soft Tissue Mobilization lumbar paraspinals Mobilization Type Myofascial Release Intensity/Depth Moderate Body Position Prone Comments prone over body pillow STM to the lumbar paraspinals thoracic paraspinals Mobilization Type Myofascial Release Body Position Prone Comments worked on MFR/STM of the thoracic paraspinals, tightness and guarding in this region Physical Therapy Assessment Goals 3 Impairment weakness of the hip musculature and right ankle DF Wash Driller Goal (LTG) Morelia presents with improved strength of the right hip and right ankle DF pt is able to work her hip and ankle DF strength in the pool. She remains limited in strength and nerve root compression that is showing on MRI is contributing to this LTG Duration 8 weeks 2 Impairment right sided hip tightness with limited ROM of hip flexion, hip ER, and SLR Short Term Goal (STG Morelia is instructed in a home program addressing hip ) ROM and flexibility excellent progress STG Duration 4 weeks Halfway Goal (LTG) Morelia is able to improve hip flexion to 115 degrees or better and SLR to 60 deg or better excellent progress hip flexion is to 115 degrees now, SLR is 55 LTG Duration 8 weeks 1 Impairment right gluteal and right sided pubic pain rated 6/10 that increases with gait and especially [place] Halfway Goal (LTG) Morelia reports a overall reduction with pain with gait and is able to [place] pain reports little to no pain now from her pelvic area now. It is the lumbar stenosis that is flared. LTG Duration 8 week Assessment Summary Assessment Morelia is doing better in the pool and has added in side strokes which she feels is helping to open up her spine, she was having increased back pain with breast stroke due to increased lumbar extension. She is walking more and will be assessed by ortho for her DF weakness due to stenosis Physical Therapy Plan Frequency and Duration Frequency of 1x/Week Treatment Duration of 8 treatment (weeks) Plan of Care Start 11/16/24 Date Plan of Care End 01/11/25 Date Therapeutic Interventions Therapeutic Balance Training,Home Exercise Program,Manual Therapy, Interventions Patient/Caregiver Education,Self-Care/Home Management, Therapeutic Exercises Next Visit Focus/Plan Next Note Type Treatment Note Next Visit Plan continue working on manual therapy techniques to decompress the spine, stretches for the lumbar spine and stabilization exercsies. Morelia will continue working in the pool 3 times per week and going for her walks in the [facility]
--- NOTE | 2024-12-14 13:12 | PT.OTN ---
Addendum entered and electronically signed by Tamanna Carroll 12/14/24 16:13: 9:09 to 9:19 Patient performed DKC 60 sec verbal cues for breathing from diaphragm SLC 30 sec each LE X 2 with vc for op LE flexed, piriformis stretch 30 sec each LE with verbal cues to pull knee to opp shoulder( Pt rests hand on LE cues to pull), hip add squeeze with ball X10 monitored for pain. Original Note: Current Diagnoses Stiffness of right hip, not elsewhere classified (12/14/24) Muscle weakness (generalized) (12/14/24) Unspecified abnormalities of gait and mobility (12/14/24) Multiple fractures of pelvis with stable disruption of pelvic ring, subsequent encounter for fracture with routine healing (12/14/24) Physical Therapy Treatment Note PT OP: Lower Back/Lower Extremity Start: 10/12/24 11:34 Freq: Status: Active Protocol: Document 12/14/24 09:21 [facility] (Rec: 12/14/24 09:47 [facility] [id number]) Out-Patient Physical Therapy Visit Information Visit Information Visit Type Treatment Note Visit Note pt was 9 minutes late to her appt today Visit Start Time 09:09 Visit Stop Time 09:45 Visit Number 8 OP-PT Subjective Patient Comments Patient Comments pt notes she is about the same and she did not make it to the pool last week. SHe has been working on the insulation of her studio. And she has a roof leak so she is stressed about that. She sees the doctor on 12/21 about a possible spinal injection. SHe is bipolar and she has heard that it can cause a severe manic episode so she is worried. She is still feeling the pain in the front of her lateral lower leg. Therapeutic Exercises Supine Exercises DKTC Reps/Minutes holding 1 min single knee to chest stretch Side bilateral Reps/Minutes hold 30 sec x 2 hip abduction with therabAND Reps/Minutes X 10 REPS ball squeeze with pelvic floor contraction Reps/Minutes hold 10 seconds x 10 reps pelvic tilt with ball squeeze Reps/Minutes x 10 Comments cues to go slow and to reactivate her core prior to each rep piriformis stretch Supine Exercise Name cues to keep the opp knee bent to stabilize her spine Reps/Minutes 2 reps holding 30 seconds Sitting Exercises seated sidebends Reps/Minutes 5 reps hold 1- sec each side then longer hold x 30 seconds seated lumbar flexion after walking Reps/Minutes 1-2 reps holding 30 seconds + ankle DF with theraband Reps/Minutes 2 x 10 reps Comments long sitting position with level 1 TB Standing Exercises single leg stance Standing Exercise use counter for light support Name Side bilateral Reps/Minutes hold 30 sec to 1 min Comments cues to avoid opp hip drop hip abductions Reps/Minutes 2 x 10 reps Comments in pool at edge of pool standing hip flexion Reps/Minutes x 10 reps-20 reps Comments in pool standing hamstring curls Reps/Minutes 10 reps Comments to do in pool with cues to keep core engaged standing quad stretch Reps/Minutes hold 30 sec to a min standing calf stretch Reps/Minutes hold 30 sec to 1 min standing toe lifts Reps/Minutes x 10 reps Comments this is really challanging for Morelia to do Other Exercises quadruped sidebends Reps/Minutes x 10 reps cat cow Reps/Minutes x 10 reps Physical Therapy Assessment Goals 3 Impairment weakness of the hip musculature and right ankle DF Online Editor Goal (LTG) Morelia presents with improved strength of the right hip and right ankle DF pt is able to work her hip and ankle DF strength in the pool. She remains limited in strength and nerve root compression that is showing on MRI is contributing to this LTG Duration 8 weeks 2 Impairment right sided hip tightness with limited ROM of hip flexion, hip ER, and SLR Short Term Goal (STG Morelia is instructed in a home program addressing hip ) ROM and flexibility excellent progress STG Duration 4 weeks Online Editor Goal (LTG) Morelia is able to improve hip flexion to 115 degrees or better and SLR to 60 deg or better excellent progress hip flexion is to 115 degrees now, SLR is 55 LTG Duration 8 weeks 1 Impairment right gluteal and right sided pubic pain rated 6/10 that increases with gait and [place] Online Editor Goal (LTG) Morelia reports a overall reduction with pain with gait and is able to [place] pain reports little to no pain now from her pelvic area now. It is the lumbar stenosis that is flared. LTG Duration 8 week Assessment Summary Assessment Exercises were reviewed for Morelia today as she has been working on home improvement projects and has not been able to exercise this past few weeks. Her pelvis is doing well however her stenosis and LBP is still causing pain. She has a ortho appt to discuss cortisone vs other options for her. She would benefit from continued PT Physical Therapy Plan Frequency and Duration Frequency of 1x/Week Treatment Duration of 8 treatment (weeks) Plan of Care Start 11/16/24 Date Plan of Care End 01/11/25 Date Next Visit Focus/Plan Next Note Type Treatment Note Next Visit Plan continue working on manual therapy techniques to decompress the spine, stretches for the lumbar spine and stabilization exercsies. Morelia will continue working in the pool 3 times per week and going [place]
--- NOTE | 2024-12-20 09:54 | PT.OTN ---
Current Diagnoses Stiffness of right hip, not elsewhere classified (12/20/24) Muscle weakness (generalized) (12/20/24) Unspecified abnormalities of gait and mobility (12/20/24) Multiple fractures of pelvis with stable disruption of pelvic ring, subsequent encounter for fracture with routine healing (12/20/24) Physical Therapy Treatment Note PT OP: Lower Back/Lower Extremity Start: 10/12/24 11:34 Freq: Status: Active Protocol: Document 12/20/24 09:19 [facility] (Rec: 12/20/24 09:57 [facility] [id number]) Out-Patient Physical Therapy Visit Information Visit Information Visit Type Treatment Note Visit Note AOC OPERATIONS INTELLIGENCE OFFICER 18 min late for appt (late coming back from inpatient). Visit Start Time 09:18 Visit Stop Time 09:54 Visit Number 9 Number of AOC OPERATIONS INTELLIGENCE OFFICER Visits 1 Progress Note Due 12/16/24 OP-PT Subjective Patient Comments Patient Comments Pt reports compliant with HEP, performs cat/cow and child's pose on bed due to hard getting on/off floor. Tries to incorporate breath best she can. She has an appt tomorrow for spinal injection, she feels will get some pain relief to be able to move better. She does still have pain at times going posterior thigh and down lateral nicole to anterior ankle but not all the time. Uses help needed for heavier carrying of groceries. Hip Goniometric Range of Motion Hip right Hip ROM WFL No Testing Position Supine Flexion w/Knee 122 Flexed Straight Leg Raise 115 External Rotation 60 Comments 12/20/24: Hip flexion with knee flexion gain 22de deg SLR gain 65 de deg Long axis hip ER: gain 40 de deg Hip Strength Hip Manual Muscle Testing R Flexion (L2) 4 Good Extension (S1) 4 Good Abduction 4 Good Therapeutic Exercises Supine Exercises LTR Supine Exercise Name reviewed a self HEP- oblique Side bilateral Resistance AROM Reps/Minutes 10 reps Comments cued slow painfree range obique core DKTC Supine Exercise Name verbal review did this am Reps/Minutes holding 1 min single knee to chest stretch Side bilateral Reps/Minutes hold 30 sec x 2 Comments cued slow breath, painfree range Sitting Exercises ankle DF with theraband Sitting Exercise DF & EV Name Resistance TB #3 Reps/Minutes 2 x 10 reps Comments sit in chair better Other Exercises quadruped sidebends Other Exercise Name 1. Cat/cow 2. Child's pose 3. Tail Wag Equipment Used on forearms due to wrist issues. Reps/Minutes 1. x 10 reps 2. arms at sides best for support no shld pain 3. Comments cued neck neutral, slow painfree motion Physical Therapy Assessment Goals 3 Impairment weakness of the hip musculature and right ankle DF Hydroponics Worker Goal (LTG) Morelia presents with improved strength of the right hip and right ankle DF 11/16/24 pt is able to work her hip and ankle DF strength in the pool. She remains limited in strength and nerve root compression that is showing on MRI is contributing to this `: updated: Hasn't been to the pool due to Sclerosis flare up and pool to cold so doing HEP home. 4/5 LTG Duration 8 weeks updated 12/20/24 2 Impairment right sided hip tightness with limited ROM of hip flexion, hip ER, and SLR Short Term Goal (STG Morelia is instructed in a home program addressing hip ) ROM and flexibility excellent progress STG Duration 4 weeks GOAL MET 11/16/24 Fdc Goal (LTG) Morelia is able to improve hip flexion to 115 degrees or better and SLR to 60 deg or better 11/16/24: excellent progress hip flexion is to 115 degrees now, SLR is 55 12/20/24: GOAL MET Hip flexion with knee flexion gain 22de deg SLR gain 65 de deg Long axis hip ER: gain 40 de deg LTG Duration 8 weeks GOAL MET 12/20/24 1 Impairment right gluteal and right sided pubic pain rated 6/10 that increases with gait and especially [place] Hydroponics Worker Goal (LTG) Morelia reports a overall reduction with pain with gait and is able to [place] 11/16/24: pain reports little to no pain now from her pelvic area now. It is the lumbar stenosis that is flared. 12/20/24: Today back pain 3-4/10 arrival, R glut pain only when carrying heavier bags, LTG Duration 8 week progressing 12/20/24 Progress Towards Goals Progress Towards Progressing Toward Goals Goals Assessment Summary Assessment Pt is making gains in ROM and strength with noted measurements taken today. PT Josephine attend tx to check in with patient. Cues as needed for proper set up and form during HEP, she states flexibility HEP helping with pain relief, AOC OPERATIONS INTELLIGENCE OFFICER encouraged to continue resisted strengthening HEP for progression spinal stability and mobility with less pain. Ask next tx how responded to injection scheduled for tomorrow. Physical Therapy Plan Frequency and Duration Frequency of 1x/Week Treatment Duration of 8 treatment (weeks) Plan of Care Start 11/16/24 Date Plan of Care End 01/11/25 Date Therapeutic Interventions Therapeutic Balance Training,Home Exercise Program,Manual Therapy, Interventions Patient/Caregiver Education,Self-Care/Home Management, Therapeutic Exercises Next Visit Focus/Plan Next Note Type Treatment Note Next Visit Plan Next continue progress functional strengthening and balance including start uneven ground, she wants to return to [employer] walks. POC: continue working on manual therapy techniques to decompress the spine, stretches for the lumbar spine and stabilization exercsies. Morelia will continue working in the pool 3 times per week and going for her walks in the [place]
--- NOTE | 2024-12-20 11:53 | PT.OPPN ---
Current Diagnoses Stiffness of right hip, not elsewhere classified (12/20/24) Muscle weakness (generalized) (12/20/24) Unspecified abnormalities of gait and mobility (12/20/24) Multiple fractures of pelvis with stable disruption of pelvic ring, subsequent encounter for fracture with routine healing (12/20/24) Physical Therapy Progress Note PT OP: Lower Back/Lower Extremity Start: 10/12/24 11:34 Freq: Status: Active Protocol: Document 12/20/24 10:41 [facility] (Rec: 12/21/24 11:37 [facility] [id number]) Out-Patient Physical Therapy Visit Information Visit Information Visit Type Progress Note Progress Note Due 01/19/25 Physical Therapy Assessment Goals 3 Impairment weakness of the hip musculature and right ankle DF Fdc Goal (LTG) Morelia presents with improved strength of the right hip and right ankle DF 11/16/24 pt is able to work her hip and ankle DF strength in the pool. She remains limited in strength and nerve root compression that is showing on MRI is contributing to this 12/20/24: updated: Hasn't been to the pool due to Sclerosis flare up and pool to cold so doing HEP home. 4/5 LTG Duration 8 weeks updated 12/20/24 2 Impairment right sided hip tightness with limited ROM of hip flexion, hip ER, and SLR Short Term Goal (STG Morelia is instructed in a home program addressing hip ) ROM and flexibility excellent progress STG Duration 4 weeks GOAL MET 11/16/24 Fdc Goal (LTG) Morelia is able to improve hip flexion to 115 degrees or better and SLR to 60 deg or better 11/16/24: excellent progress hip flexion is to 115 degrees now, SLR is 55 12/20/24: GOAL MET Hip flexion with knee flexion gain 22de deg SLR gain 65 de deg Long axis hip ER: gain 40 de deg LTG Duration 8 weeks GOAL MET 12/20/24 1 Impairment right gluteal and right sided pubic pain rated 6/10 that increases with gait and especially [place] Digital Marketing Specialist Goal (LTG) Morelia reports a overall reduction with pain with gait and is able to return [place] 11/16/24: pain reports little to no pain now from her pelvic area now. It is the lumbar stenosis that is flared. 12/20/24: Today back pain 3-4/ arrival, R glut pain only when carrying heavier bags, LTG Duration 8 week progressing 12/20/24 Assessment Summary Assessment Pt making good progress w/ROM with PT and noting improving symptoms. She would benefit from cont PT to cont to dec symptoms and improve mobility Physical Therapy Plan Frequency and Duration Frequency of 1x/Week Treatment Duration of 8 treatment (weeks) Plan of Care Start 12/21/24 Date Plan of Care End 02/15/25 Date Therapeutic Interventions Therapeutic Balance Training,Home Exercise Program,Manual Therapy, Interventions Patient/Caregiver Education,Self-Care/Home Management, Therapeutic Exercises Next Visit Focus/Plan Next Note Type Treatment Note Next Visit Plan Next continue progress functional strengthening and balance including start uneven ground, she [place]. POC: continue working on manual therapy techniques to decompress the spine, stretches for the lumbar spine and stabilization exercsies. Morelia will continue working in the pool 3 times per week and going [place]
--- NOTE | 2024-12-29 13:28 | PT.OTN ---
Current Diagnoses Stiffness of right hip, not elsewhere classified (12/29/24) Muscle weakness (generalized) (12/29/24) Unspecified abnormalities of gait and mobility (12/29/24) Multiple fractures of pelvis with stable disruption of pelvic ring, subsequent encounter for fracture with routine healing (12/29/24) Physical Therapy Treatment Note PT OP: Lower Back/Lower Extremity Start: 10/12/24 11:34 Freq: Status: Active Protocol: Document 12/29/24 10:49 [facility] (Rec: 12/29/24 11:26 [facility] [id number]) Out-Patient Physical Therapy Visit Information Visit Information Visit Start Time 10:45 Visit Stop Time 11:30 Visit Number 10 Progress Note Due 01/19/25 OP-PT Subjective Patient Comments Patient Comments pt reports she is doing better, she increased her stretching and she feels it has really helped. She is also doing better with decreased foot draging . She is able to get through the day better. She is still waiting on what her insurance will cover for her spinal injections. Therapeutic Exercises Supine Exercises TA with march Reps/Minutes x 10 each side TA with SLR Reps/Minutes x 10 reps each side core engagement with curl up Supine Exercise Name hands slide up knees Reps/Minutes x 10 straight, each side pelvic tilt with bridge Reps/Minutes x 10 reps pelvic tilt with ball squeeze Reps/Minutes x 10 Comments cues to go slow and to reactivate her core prior to each rep Other Exercises betty pose forward and side to side Reps/Minutes 2 x 30 sec Manual Therapy Treatment Soft Tissue Mobilization thoracic paraspinals Mobilization Type Myofascial Release Body Position Prone Comments worked on MFR/STM of the thoracic paraspinals, tightness and guarding in this region Physical Therapy Assessment Goals 3 Impairment weakness of the hip musculature and right ankle DF Jail Goal (LTG) Morelia presents with improved strength of the right hip and right ankle DF 11/16/24 pt is able to work her hip and ankle DF strength in the pool. She remains limited in strength and nerve root compression that is showing on MRI is contributing to this 12/20/24: updated: Hasn't been to the pool due to Sclerosis flare up and pool to cold so doing HEP home. 4/5 LTG Duration 8 weeks updated 12/20/24 2 Impairment right sided hip tightness with limited ROM of hip flexion, hip ER, and SLR Short Term Goal (STG Morelia is instructed in a home program addressing hip ) ROM and flexibility excellent progress STG Duration 4 weeks GOAL MET 11/16/24 Jail Goal (LTG) Morelia is able to improve hip flexion to 115 degrees or better and SLR to 60 deg or better 11/16/24: excellent progress hip flexion is to 115 degrees now, SLR is 55 12/20/24: GOAL MET Hip flexion with knee flexion gain 22de deg SLR gain 65 de deg Long axis hip ER: gain 40 de deg LTG Duration 8 weeks GOAL MET 12/20/24 1 Impairment right gluteal and right sided pubic pain rated 6/10 that increases with gait and especially [place] American Sign Language Interpreter Goal (LTG) Morelia reports a overall reduction with pain with gait and is able to return [place] 11/16/24: pain reports little to no pain now from her pelvic area now. It is the lumbar stenosis that is flared. 12/20/24: Today back pain 3-4/10 arrival, R glut pain only when carrying heavier bags, LTG Duration 8 week progressing 12/20/24 Assessment Summary Assessment Morelia is doing better overall by really focusing on stretches. I was able to add to her core program. She felt TA with marches was easy but when we tried level 1 b lower abdominal progression of marching up up down down it was difficult for her to stabilize her back. She would benefit from continued work on core stabilization Physical Therapy Plan Frequency and Duration Frequency of 1x/Week Treatment Duration of 8 treatment (weeks) Plan of Care Start 12/21/24 Date Plan of Care End 02/15/25 Date Next Visit Focus/Plan Next Note Type Treatment Note Next Visit Plan progress to LA level 1 b ( march up up down down) and TA with SLR, continue with manual therapy techniques to decompress the spine, stretches for the lumbar spine
--- NOTE | 2025-01-05 12:47 | PT.OPDS ---
Current Diagnoses Stiffness of right hip, not elsewhere classified (01/05/25) Muscle weakness (generalized) (01/05/25) Unspecified abnormalities of gait and mobility (01/05/25) Multiple fractures of pelvis with stable disruption of pelvic ring, subsequent encounter for fracture with routine healing (01/05/25) Visit Care Team Role Provider Type Navin Davis MD Family Provider Physician Primary Care Provider Specialty: Family Practice Address: [address] [place], [place] [address], [address] Email: Lucy Valadez PA-C Attending Provider Advanced Asphalt Paving Machine Operator Referring Provider Specialty: Orthopedics Orthopedic Surgery Address: [address] [place] [address], [address] Email: [email or web address] Visit Number Visit Number 10 Discharge Summary PT OP: Lower Back/Lower Extremity Start: 10/12/24 11:34 Freq: Status: Active Protocol: Document 01/05/25 11:32 [facility] (Rec: 01/05/25 11:40 [facility] [id number]) Out-Patient Physical Therapy Visit Information Visit Information Visit Type Treatment Note Visit Start Time 11:30 Visit Stop Time 12:15 OP-PT Subjective Patient Comments Patient Comments pt notes she does feel some soreness after doing her stabilization exercises, she does have appt for a injection, she was able to get on her yoga mat and she felt good doing the cat cow. Her plan is to get the injection and continue working on her HEP. Patient Reported Improving Progress Manual Therapy Treatment Consent Patient gave verbal Yes consent for manual treatment Soft Tissue Mobilization lumbar paraspinals Mobilization Type Myofascial Release Intensity/Depth Moderate Body Position Prone Comments prone over body pillow STM to the lumbar paraspinals thoracic paraspinals Mobilization Type Myofascial Release Body Position Prone Comments worked on MFR/STM of the thoracic paraspinals, tightness and guarding in this region Physical Therapy Assessment Goals 3 Impairment weakness of the hip musculature and right ankle DF Shelter Goal (LTG) Morelai presents with improved strength of the right hip and right ankle DF 11/16/24 pt is able to work her hip and ankle DF strength in the pool. She remains limited in strength and nerve root compression that is showing on MRI is contributing to this 12/20/24: updated: Hasn't been to the pool due to Sclerosis flare up and pool to cold so doing HEP home. 4/5 LTG Duration 8 weeks updated 12/20/24 2 Impairment right sided hip tightness with limited ROM of hip flexion, hip ER, and SLR Short Term Goal (STG Morelia is instructed in a home program addressing hip ) ROM and flexibility excellent progress STG Duration 4 weeks GOAL MET 11/16/24 Director Consumer Affairs Goal (LTG) Morelia is able to improve hip flexion to 115 degrees or better and SLR to 60 deg or better 11/16/24: excellent progress hip flexion is to 115 degrees now, SLR is 55 12/20/24: GOAL MET Hip flexion with knee flexion gain 22de deg SLR gain 65 de deg Long axis hip ER: gain 40 de deg LTG Duration 8 weeks GOAL MET 12/20/24 1 Impairment right gluteal and right sided pubic pain rated 6/10 that increases with gait and [place] Director Consumer Affairs Goal (LTG) Morelia reports a overall reduction with pain with gait and is able to [place] 11/16/24: pain reports little to no pain now from her pelvic area now. It is the lumbar stenosis that is flared. 12/20/24: Today back pain 3-4/10 arrival, R glut pain only when carrying heavier bags, LTG Duration 8 week progressing 12/20/24 Assessment Summary Assessment Morelia is doing well with her HEP of stabilization and stretches for the low back. She is feeling independent at this time with her HEP. She will be discharged from PT at this time Physical Therapy Plan Discharge Physical Therapy Discharge Comments DC to I HEP
== END 2025-01-06 12:11 | disposition home or self-care (01) ==
LOC: PHYS 11:30
PROVIDERS: Family Provider Family Medicine; PCP Family Medicine; Referring Provider Physician Assistant Surgical; Visit Provider Physician Assistant Surgical
DX: S32.810D Multiple fractures of pelvis with stable disruption of pelvic ring, subsequent encounter for fracture with routine healing (principal); M25.651 Stiffness of right hip, not elsewhere classified; M62.81 Muscle weakness (generalized); R26.9 Unspecified abnormalities of gait and mobility
CPT/HCPCS: 97110; 97140; 97162; 97530

== ENCOUNTER 2025-01-12 08:16 | Outpatient (CLI) | payer MEDICARE, MEDICAID, SELFPAY ==
[2024-11-18 10:06] VITALS: BMI 28.6
[2025-01-12 08:55] VITALS: BP 146/90; PULSE 63; RESP 16; TEMP 36.7; O2SAT 96
[2025-01-12 09:23] VITALS: BP 152/96; PULSE 70; RESP 116; O2SAT 94
[2025-01-12 09:31] VITALS: BP 155/98; PULSE 68; O2SAT 98
[2025-01-12 09:36] VITALS: BP 157/95; PULSE 67; RESP 18; O2SAT 98
[2025-01-12 09:44] VITALS: BP 164/100; PULSE 80; RESP 16; O2SAT 100
[2025-01-12 09:50] VITALS: BP 161/95; PULSE 63; RESP 16; O2SAT 96
--- NOTE | 2025-01-12 12:37 | PM.PROC.IR.1 ---
Date/Time/Diagnoses Date of procedure: 01/12/25 Time of procedure: 09:00 Pre-procedure diagnosis: Low back pain, lumbar spondylosis Post-procedure diagnosis: same Procedure Notes Procedure: Medial branch blocks, bilateral L4-5 and L5-S1 facet joint nerves Indications: Low back pain, lumbar spondylosis Physician: Jonathan Palomares Total sedation minutes: 0 Complications: none Procedure in detail & Post-procedure care: Patient is here for the planned procedure today as noted. No significant change since the last office visit. For additional clinical scenario please see those office notes. Focused exam: Vital signs reviewed as charted on intake. Gen: Well developed. No acute distress. CV: RRR, no M/R/G Chest: Non-labored breathing, CTAB. Psych: Alert and well-oriented. Mood/Affect: normal. Patient suitable for the planned procedure today: Yes === The following procedure was performed today: Lumbar Facet Joint Nerve Block (medial branch block) with fluoroscopic guidance (29143-92/[id number]) Levels Treated: Bilateral L4-5 and L5-S1 facet joint nerves (bilateral L3 and L4 medial branches and L5 dorsal rami) Approach: posterior Soft tissue: 3 mL 2% lidocaine Injectate: 0.8 mL 2% lidocaine at each level Fluoroscopy Agent: Isovue 300-M 1.2 mL Notes: Note she is on Eliquis, associated increased bleeding risks discussed and she would like to proceed. 3.5 in 22 gauge spinal needle utilized and adequate. Preprocedure pain 5/10, postprocedure pain 0/10. Pain diary provided and she will bring it to follow-up. Procedure: After discussing the risks, benefits, and alternatives to the procedure, the patient expressed understanding and wished to proceed. The risks include but are not limited to infection, allergic reaction, nerve damage, stroke, paralysis, epidural hematoma, syncope, headache, respiratory or cardiac arrest, spinal cord injury, and scar formation. Informed consent was obtained and all patient questions were answered. The patient was brought to the procedure suite and placed in the prone position. A pre-procedural pause was conducted to verify: correct patient identity, procedure to be performed and as applicable, correct side and site, correct patient position, and any special requirements. Using fluoroscopy, the junction of the transverse process and superior articular process of the target levels were identified. For the L5 dorsal ramus (if targeted), the junction of the superior articular process of the sacrum and the ala was identified. The skin was sterilely prepped and draped in the usual fashion. The skin and subcutaneous tissue were anesthetized with lidocaine. Then using fluoroscopic guidance with multiplanar views, a 22 gauge spinal needle was advanced to each target. After contacting the periosteum and after negative aspiration, 0.2 cc of contrast was injected at each site. Spread of contrast approximated the region of the medial branches/dorsal ramus and there was no evidence of intravascular uptake. The injectate noted above was then injected at each site and the needles were removed. The procedure was repeated for each target level noted above. Multiplanar images were obtained and saved. The patient tolerated the procedure well and was discharged after an appropriate period of observation. If there are any complications, the patient was instructed to call us. The patient is to follow-up with the requesting provider in 1-2 weeks. The patient was instructed to keep a pain diary and bring the results to the follow up appointment. This note was compiled using voice recognition software and therefore may contain typos. Please contact the author with any questions or concerns.
== END 2025-01-12 09:57 | disposition home or self-care (01) ==
LOC: RAD 08:16
PROVIDERS: Family Provider Family Medicine; PCP Family Medicine; Referring Provider Family Medicine; Visit Provider Physical Medicine & Rehabilitation
DX: M47.816 Spondylosis without myelopathy or radiculopathy, lumbar region (principal); M47.817 Spondylosis without myelopathy or radiculopathy, lumbosacral region; M54.50 Low back pain, unspecified; G89.29 Other chronic pain
CPT/HCPCS: 64493; 64494